=== PATIENT | female | born 1960 | race Caucasian/White ===

== ENCOUNTER 2021-02-28 23:39 | Inpatient (IN) | payer OTHER, SELFPAY ==
--- NOTE | ~2021-02-28 | XR_ITS ---
XR chest 1V portable DATE: 03/08/2021 05:51 INDICATION: Respiratory failure TECHNIQUE: Portable AP chest on 03/08/2021 at 0530 hours COMPARISON: 03/07/2021 portable AP chest FINDINGS: Tip of ET tube is approximately 5.6 cm above samantha. Right upper extremity PIC catheter tip overlies superior vena cava. NG tube in stomach. Bilateral hyperinflation. No pulmonary consolidation, pleural effusion, pulmonary congestion or pneum othorax is evident. Heart size is normal. Diffuse osteopenia. IMPRESSION: Bilateral hyperinflation; no active cardiopulmonary disease Reviewed, dictated and finalized at location A.
--- NOTE | ~2021-02-28 | XR_ITS ---
XR chest PICC line 03/01/2021 10:41 Indication: PICC line placement Procedure: AP portable chest Comparison: 02/28/2021 Findings: NG tube passes into the stomach, tip not visualized. Endotracheal tube approximately 6 cm a michelle the samantha. Right subclavian PICC line tip in the SVC. Right perihilar and basilar infiltrates m ay represent atelectasis and/or pneumonia. Impression: 1: Right perihilar and basilar infiltrates which may represent atelectasis and/or pneumonia. Reviewed, dictated and finalized at location A. Impression: 1: Right perihilar and basilar infiltrates which may represent atelectasis and/ or pneumonia.
--- NOTE | ~2021-02-28 | XR_ITS ---
EXAMINATION: XR chest 1V portable EXAM DATE: 03/10/2021 05:41 INDICATION: Respiratory failure. TECHNIQUE: Portable AP frontal chest x-ray was obtained. Comparison is made to prior examination from 03/09/2021, 03/08/2021, 03/07/2021. FINDINGS: Endotracheal tube tip is 4-5 centimeters above the samantha. There is a nasogastric tube se en with tip collimated off the study, but below the left hemidiaphragm. There is a right-sided PICC l ine with tip projecting over the cavoatrial junction. There is of bibasilar medial subsegmental opacities, atelectasis an/or pneumonia. There are no pleura l effusions. Cardiac silhouette is prominent but magnified on this AP technique. There is no pneum othorax suspected. The bones and soft tissues are unremarkable. There is no significant interval change. IMPRESSION: 1. Tubes, line in position. 2. Bibasilar medial atelectasis an/or pneumonia unchanged. Reviewed, dictated and finalized at location A.
--- NOTE | ~2021-02-28 | CT_ITS ---
EXAMINATION: CTA chest DATE: 03/01/2021 08:35 CDT INDICATION: Cardiac arrest TECHNIQUE: Computed tomographic angiography (CTA) of the chest was performed with 100 mL Omnipaque-35 0 intravenous contrast. The dose-length product was 745.76 mGy-cm. Maximum intensity projection 3D-re constructions of the aorta and other arteries were constructed by the technologist on a separate work station. Automated exposure control and iterative reconstruction technique were employed. COMPARISON: No prior studies for comparison. . FINDINGS: Endotracheal tube is present. NG tube in the stomach which is moderately distended. Borderl ine heart size. No significant pleural or pericardial effusion. No evidence for pulmonary embolism. N o evidence for aortic aneurysm or dissection. There is bibasilar dependent atelectasis. No focal pneu monia. No endobronchial lesion. Calcified granuloma right midlung zone. There is reflux of contrast i nto the intrahepatic IVC and hepatic veins which can be associated with right heart dysfunction. No a cute osseous abnormality. No pneumothorax. IMPRESSION: 1. Bibasilar atelectasis. 2: No evidence for pulmonary embolism, aortic aneurysm or dissection. Reviewed, dictated and finalized at location A.
--- NOTE | ~2021-02-28 | XR_ITS ---
XR abdomen NG/feed tube insert INDICATION: Evaluate NG tube position. TECHNIQUE: Limited KUB perform for evaluating NG tube . COMPARISON: No prior studies for comparison. FINDINGS: NG tube tip in the stomach, side port above the GE junction. There is gastric distention. D ilated bowel noted in the upper abdomen, nonspecific.. IMPRESSION: 1: NG tube tip in the stomach with side port above the GE junction. 2: Moderate gastric distention with nonspecific bowel gas pattern. Reviewed, dictated and finalized at location A.
--- NOTE | ~2021-02-28 | XR_ITS ---
XR chest 1V portable DATE: 03/06/2021 05:43 INDICATION: Acute respiratory failure TECHNIQUE: Portable AP chest on 03/06/2021 at 0524 hours COMPARISON: 03/05/2021 portable AP chest at 0508 hours FINDINGS: ET tube in satisfactory position 4.6 cm above samantha. NG tube in stomach. Right upper cavity PICC catheter tip overlies the superior vena cava. There is patchy infiltrate or atelectasis in the left lower lobe, which appears mildly improved since 03/05/2021. The lungs otherwise appear essentially clear. IMPRESSION: Left lower lobe patchy infiltrate or atelectasis, mildly improved Reviewed, dictated and finalized at location A.
--- NOTE | ~2021-02-28 | XR_ITS ---
EXAMINATION: XR chest 1V portable EXAM DATE: 03/11/2021 06:04 INDICATION: Respiratory failure. TECHNIQUE: Portable AP frontal chest x-ray was obtained. Comparison is made to prior examination from 03/10, 03/09. FINDINGS: Endotracheal tube tip difficult to visualize but is probably 5-6 centimeters above the car scottie. There is a nasogastric tube seen with tip collimated off the study, but below the left hemidiap hragm. There is a right-sided PICC line with tip projecting over the cavoatrial junction. There is of bibasilar medial subsegmental opacities, atelectasis an/or pneumonia. Some hyperinflation . There are no pleural effusions. Cardiac silhouette is prominent but magnified on this AP technique . There is no pneumothorax suspected. The bones and soft tissues are unremarkable. There is no significant interval change. IMPRESSION: 1. Tubes, line in position. 2. Bibasilar medial atelectasis an/or pneumonia unchanged. Reviewed, dictated and finalized at location A.
--- NOTE | ~2021-02-28 | XR_ITS ---
EXAMINATION: XR abdomen NG/feed tube insert DATE: 03/13/2021 10:10 INDICATION: Orogastric tube placement check TECHNIQUE: A supine view of the abdomen and lower chest was obtained for evaluation of feeding tube placement. COMPARISON: 03/07/2021 FINDINGS: Orogastric tube tip in proximal side port in the body of the stomach. Right upper extremity periphera lly inserted central venous catheter (PICC) tip at the mid superior vena cava. Cholecystectomy clip s in right upper quadrant. Additional surgical clips project over the lower lumbar spine. Calcified n odules in the right lung, spleen and calcified right hilar and mediastinal lymph nodes, all consisten t with old granulomatous disease. Additional cluster small calcifications to the right of the L2 vert ebral body which could represent renal stones or dystrophic calcific lesions in the pancreas related to chronic pancreatitis. Heart size is normal. IMPRESSION: 1. Orogastric tube in the stomach. Reviewed, dictated and finalized at location A.
--- NOTE | ~2021-02-28 | XR_ITS ---
EXAMINATION: XR chest 1V portable EXAM DATE: 03/09/2021 05:40 INDICATION: Resp Failure. TECHNIQUE: Portable AP frontal chest x-ray was obtained. Comparison is made to prior examination from 03/08/2021. FINDINGS: Endotracheal tube tip is 4.5 centimeters above the samantha. There is a nasogastric tube see n with tip collimated off the study, but below the left hemidiaphragm. There is a right-sided PICC li ne with tip projecting over the cavoatrial junction. There is interval development of bibasilar subsegmental opacities, atelectasis an/or pneumonia. There are no pleural effusions. Cardiac silhouette is prominent but magnified on this AP technique. The re is no pneumothorax suspected. The bones and soft tissues are unremarkable. IMPRESSION: Developing bibasilar atelectasis an/or pneumonia. Reviewed, dictated and finalized at location A.
--- NOTE | ~2021-02-28 | XR_ITS ---
EXAMINATION: XR chest ET placement, XR abdomen NG/feed tube rechec DATE: 03/07/2021 20:22 INDICATION: Repositioning of endotracheal tube and orogastric tube advancement. TECHNIQUE: 1. frontal view of the chest was obtained. 2. AP view of the abdomen was obtained. COMPARISON: Chest radiograph dated 03/07/2021 at 7:55 PM FINDINGS: Chest: Endotracheal tube tip 4.1 cm above the samantha. Right upper extremity peripherally inserted central ve nous catheter (PICC) tip at the mid superior vena cava. Calcified nodules in the right lung and calcified right hilar lymph nodes consistent with old granulo matous disease. Remainder of the lungs are clear with no pulmonary edema, pleural effusion or pneumot horax. The cardiomediastinal silhouette is normal. Abdomen: Is a gastric tube tip in proximal side port in the body of the stomach. Cholecystectomy clips in righ t upper quadrant. Additional surgical clips in the central abdomen. No dilated loops of bowel to sugg est obstruction. IMPRESSION: 1. Endotracheal tube and nasogastric tubes in expected positions. 2. No acute cardiopulmonary disease. Reviewed, dictated and finalized at location A. IMPRESSION: 1. Endotracheal tube and nasogastric tubes in expected positions. 2. No acute cardiopulmonary disease.
--- NOTE | ~2021-02-28 | XR_ITS ---
EXAMINATION: XR chest ET placement DATE: 03/07/2021 20:08 INDICATION: Endotracheal tube placement TECHNIQUE: frontal view of the chest was obtained. COMPARISON: Chest radiograph dated 03/07/2021 FINDINGS: Endotracheal tube tip 7.3 cm above the samantha. Nasogastric tube extends below the left hemidiaphragm with distal tip collimated off the study. Right upper extremity peripherally inserted central venous catheter (PICC) tip at the mid superior vena cava. Calcified nodule in the right midlung and calcified right hilar lymph nodes consistent with old granu lomatous disease. Linear discoid atelectasis at the left lung base. No other airspace opacities, pulm onary edema, pleural effusion or pneumothorax. The cardiomediastinal silhouette is normal. Visualized bones and soft tissues are unremarkable. IMPRESSION: 1. Endotracheal tube tip 7.3 cm above the samantha. Recommend advancement by 4-5 cm. 2. No acute cardiopulmonary disease. Reviewed, dictated and finalized at location A.
--- NOTE | ~2021-02-28 | XR_ITS ---
XR chest ET placement 03/01/2021 00:12 Indication: Cardiac arrest Procedure: AP portable chest Comparison: 02/14/2011 Findings: Endotracheal tube tip 4.7 cm above the samantha. Mild interstitial edema. Heart size within n ormal limits for technique. No significant effusion or pneumothorax. Impression: 1: Mild interstitial edema. Reviewed, dictated and finalized at location A. Impression: 1: Mild interstitial edema.
--- NOTE | ~2021-02-28 | XR_ITS ---
XR chest 1V portable DATE: 03/07/2021 05:45 INDICATION: Respiratory failure TECHNIQUE: Portable upright AP chest on 03/07/2021 at 0532 hours COMPARISON: 03/06/2021 portable AP chest at 0524 hours FINDINGS: Right upper extremity PIC catheter tip overlies the superior vena cava. ET tube tip is approximately 0.9 cm above samantha; ideal range is #2 out of 5 cm. An NG tube noted passing into the stomach. Normal heart size. Mild infiltrate or atelectasis in the lower lung zones IMPRESSION: Little interval change since 03/06/2021 Reviewed, dictated and finalized at location A.
--- NOTE | ~2021-02-28 | XR_ITS ---
XR chest 1V portable DATE: 03/05/2021 05:27 INDICATION: Acute respiratory failure TECHNIQUE: Portable AP chest on 03/05/2021 at 0508 hours COMPARISON: 03/04/2021 portable AP chest at 0522 hours FINDINGS: ET tube tip 5.5 cm above samantha. NG tube in stomach, proximal port approximately 4 cm dista l to the diaphragmatic hiatus. Right upper stomach the catheter tip overlies the superior vena cava. Normal heart size. There is persistent left lower lobe retrocardiac infiltrate and/atelectasis. Mild discoid atelectasis or scarring at the right lung base. Old pulmonary granulomatous disease. No pleural effusion or pneumothorax. IMPRESSION: No significant change since 03/04/2021 Reviewed, dictated and finalized at location A.
--- NOTE | ~2021-02-28 | XR_ITS ---
XR chest 1V portable DATE: 03/04/2021 05:31 INDICATION: Acute respiratory failure TECHNIQUE: Portable AP chest on 03/04/2021 at 0522 hours COMPARISON: Portable AP chest on 03/03/2021 at 0513 hours FINDINGS: ET tube tip is approximately 5.5 cm above samantha; ideal range is -2005 cm. NG tube in stomach. Right upper extremity PIC catheter tip overlies superior vena cava. Normal heart size. There is pulmonary vascular redistribution which may indicate mild pulmonary venou s hypertension. There is mildly increased patchy left lower lobe infiltrate and/or atelectasis since 03/03/2021; persi stent right basilar discoid atelectasis. No pneumothorax or pleural effusion. IMPRESSION: Mild increased left lower lobe infiltrate and/atelectasis and persistent discoid atelecta sis at right lung base Reviewed, dictated and finalized at location A. IMPRESSION: Mild increased left lower lobe infiltrate and/atelectasis and persi stent discoid atelectasis at right lung base
--- NOTE | ~2021-02-28 | XR_ITS ---
XR chest 1V portable 03/14/2021 05:44 Indication: Respiratory failure Procedure: AP portable chest Comparison: Comparison to multiple prior studies sequentially, with oldest reviewed study dated 02/27. Findings: Endotracheal tube tip 7.1 cm above the samantha. PICC line tip mass cc. NG tube in the stomac h. Heart size normal. No focal air space disease, pulmonary edema, pleural effusion or suspected pneu mothorax. No acute osseous abnormality. Impression: 1: No acute cardiopulmonary disease. Reviewed, dictated and finalized at location A. Impression: 1: No acute cardiopulmonary disease.
--- NOTE | ~2021-02-28 | XR_ITS ---
XR chest 1V portable DATE: 03/02/2021 05:45 INDICATION: Acute respiratory failure TECHNIQUE: Portable AP chest on 02/2021 0455 hours COMPARISON: 03/01/2021 portable AP chest at 1038 hours FINDINGS: ET tube in satisfactory position 4.5 cm above samantha. NG tube in stomach, proximal port steven roximately 1 cm distal to the diaphragmatic hiatus. Right upper extremity PIC catheter tip overlies the lower superior vena cava. Calcified pulmonary granuloma, right mid lung. No pulmonary infiltrate or consolidation, pleural effu alexis or pulmonary vascular congestion or pneumothorax is detected. Heart size appears normal. IMPRESSION: No active cardiopulmonary disease Reviewed, dictated and finalized at location A.
--- NOTE | ~2021-02-28 | CT_ITS ---
EXAMINATION: CT brain wo con DATE: 03/05/2021 08:45 INDICATION: Altered state, unresponsive. Mild colonic injury. Seizure activity. Postcardiac arrest. TECHNIQUE: Computed tomography (CT) of the head was performed without intravenous contrast. The mA wa s adjusted according to patient size. Iterative reconstruction technique was employed. Exam dose: 60 5.33 mGy-cm total exam DLP. COMPARISON: 03/18/2021 CT brain FINDINGS: No intracranial mass lesion or hemorrhage, midline shift or mass effect. There is nonspecific diminished attenuation cerebral white matter, most prominent in the right fronta l area, stable since 03/01/2021. Small focal infarct is suggested in the high posterior left parietal area, also stable since 03/01/2021. No intracranial mass lesion or hemorrhage, midline shift or mass effect effect. No subdural or epidural hematoma. No fracture or bone destruction of the cranial vault. There is complete opacification of the frontal sinuses, extensive opacification of the ethmoid air ce lls and severe mucoperiosteal thickening of both maxillary sinuses. The mastoid air cells are normally developed and aerated IMPRESSION: No acute intracranial finding or significant change since 03/01/2021 Prominent sinusitis Reviewed, dictated and finalized at Location A. Reviewed, dictated and finalized at location A. IMPRESSION: No acute intracranial finding or significant change since Prominent sinusitis
--- NOTE | ~2021-02-28 | CT_ITS ---
EXAMINATION: CT brain wo con DATE: 03/01/2021 00:34 INDICATION: Altered mental status TECHNIQUE: Computed tomography (CT) of the head was performed without intravenous contrast. The dose- length product was 605.33 mGy-cm. Automated exposure control and iterative reconstruction technique w ere employed. COMPARISON: None FINDINGS: There is left parietal encephalomalacia, consistent with chronic infarction. Mild generaliz ed atrophy. There are scattered mild periventricular and subcortical white matter changes, most likel y related to small vessel ischemic disease (microangiopathy). No ventriculomegaly or midline shift. B asilar cisterns are patent. IMPRESSION: 1. No acute intracranial abnormality. 2: Chronic left parietal lobe infarction. 3: Chronic age-related findings. Reviewed, dictated and finalized at location A.
--- NOTE | ~2021-02-28 | XR_ITS ---
XR chest 1V portable DATE: 03/03/2021 05:39 INDICATION: Acute respiratory failure TECHNIQUE: Portable upright AP chest on 03/03/2021 at 0513 hours COMPARISON: 03/02/2021 portable AP chest at 0455 hours FINDINGS: ET tube in satisfactory position 3.9 cm above samantha. NG tube in stomach. Right upper extremity PIC catheter tip overlies the lower aspect of the superior vena cava. There is patchy infiltrate and/atelectasis primarily involving the left lower lobe and right lung bas e. No pleural effusion or pneumothorax. Status post cholecystectomy IMPRESSION: Mild infiltrate or atelectasis primarily in the lower lung zones Reviewed, dictated and finalized at location A.
[2021-02-28 23:34] VITALS: PULSE 71; RESP 15; TEMP 36.2; O2SAT 100
--- NOTE | 2021-02-28 23:40 | ECG_ITS ---
Measurements Intervals [place] Rate: 58 P: ND: 0 QRS: 71 QRSD: 133 T: 34 QT: 420 QTc: 416 Interpretive Statements ECTOPIC ATRIAL BRADYCARDIA OR JUNCTIONAL RHYTHM INTRAVENTRICULAR CONDUCTION DELAY ST-T WAVE ABNORMALITY IN ANTEROLAT/INF LEADS- CONSIDER ISCHEMIA BASELINE ARTIFACT- I, II, III, AVR, AVL, AVF, V1-V6 ABNORMAL ECG Electronically Signed On 03-02-2021 16:39:43 CDT by Uzair Shook D.O.
[2021-02-28 23:42] VITALS: PULSE 62; RESP 18
[2021-02-28 23:45] VITALS: BP 134/101; PULSE 56; RESP 18
[2021-02-28 23:46] VITALS: BP 134/101; PULSE 59; RESP 24
[2021-02-28 23:47] VITALS: BP 131/101; PULSE 61; RESP 24; O2SAT 100
--- NOTE | 2021-02-28 23:47 | PC.NURSE ---
Patient arrives with colostomy in place.
--- NOTE | 2021-02-28 23:48 | PC.NURSE ---
VORB repeat EKG.
--- NOTE | 2021-02-28 23:49 | ECG_ITS ---
Measurements Intervals [place] Rate: 63 P: -68 MA: 122 QRS: 53 QRSD: 125 T: 29 QT: 392 QTc: 404 Interpretive Statements SINUS OR ECTOPIC ATRIAL RHYTHM INTRAVENTRICULAR CONDUCTION DELAY CANNOT RULE OUT SEPTAL INFARCT, AGE INDETERMINATE BORDERLINE ST ABNORMALITY- INFERIOR LEADS BASELINE ARTIFACT- I, II, III, AVR, AVL, AVF, V1-V6 ABNORMAL ECG Electronically Signed On 03-02-2021 16:41:11 CDT by Uzair Shook D.O.
--- NOTE | 2021-02-28 23:50 | PC.NURSE ---
RT in room placing patient on vent.
--- NOTE | 2021-02-28 23:52 | PC.NURSE ---
Xray in room obtaining ET placement and chest xray.
[2021-03-01] VITALS (75 sets, daily range): BP systolic 91–180; BP diastolic 50–109; PULSE 57–105; RESP 16–34; TEMP 34.9–36.6; O2SAT 94–100
[2021-03-01 00:03] LABS: Basophils Absolute Auto 0.1 K/mm3 (0.0-0.1); Basophils Percent Auto 0.7 % (0.2-1.2); Eosinophils Absolute Auto 0.1 K/mm3 (0-0.3); Eosinophils Percent Auto 0.6 % (0-4.4); Hematocrit 44.3 % (37.0-47.0); Hemoglobin 13.3 g/dL (12.0-15.0); Immature Granulocyte Absolute 1.33 K/mm3 (0.00-0.031); Immature Granulocyte Percent A 8.2 % (0-0.5); Lymphocytes Absolute Auto 6.82 K/mm3 (0.9-3.2); Lymphocytes Percent Auto 42.2 % (18.3-44.2); Mean Corpuscular Hemoglobin 28.5 pg (26-34); Mean Corpuscular Volume 94.9 fl (80-100); Mean Platelet Volume 10.6 fl (7.4-10.4); Neutrophils Absolute Auto 6.8 K/mm3 (1.3-6.7); Neutrophils Percent Auto 42.3 % (45.5-73.1); Nucleated Red Blood Cells Perc 0.1 % (0.0-0.2); Platelet Count Result 269 k/mm3 (150-375); Red Blood Count 4.67 M/mm3 (4.2-5.4); Red Cell Distribution Width 14.8 % (11.5-14.5); White Blood Count 16.2 K/mm3 (4.5-10.0)
[2021-03-01 00:17] LABS: INR 2.5; Prothrombin Time 26.5 Seconds (11.1-14.7)
[2021-03-01 00:18] LABS: Partial Thromboplastin Time 34.9 SECONDS (22.3-36.8)
--- NOTE | 2021-03-01 00:26 | ED.GENADULT ---
HPI - General Adult General Chief complaint: Cardiac Arrest/CPR Stated complaint: cardiac arrest History of Present Illness HPI narrative: Patient is a 60-year-old female who presents ER in cardiac arrest. Patient was at a wedding this evening and had walked to her son's car when she told him she was short of breath. She then collapsed. Bystanders initiated CPR because she did not have a pulse. A bystander nurse told the son that patient had agonal respirations. EMS arrived and patient was in asystole. They performed ACLS protocol and patient was given 3 rounds of epinephrine. Patient improved to PEA, and then to having return of spontaneous circulation. According to the son 08/2020 patient had a cardiac ablation for atrial fibrillation. Then in September 2020 patient has similar episode where she cannot breathe and collapse. At that time she had a humeral intraosseous line and was intubated. 24 hours later she snapped out of it. Patient then underwent cardiac catheterization which showed no blockages. According to patient has no cardiac stents. Patient is currently anticoagulated on Coumadin. Patient resides in [place] and flew up here 4 days ago. Related Data Home Medications Medication Instructions Recorded Confirmed furosemide 20 mg PO DAILY 03/01/21 03/01/21 sotalol 120 mg PO BID 03/01/21 03/01/21 umeclidinium-vilanterol [Anoro 1 inh INHALATION DAILY 03/01/21 03/01/21 Ellipta] venlafaxine 75 mg PO DAILY 03/01/21 03/01/21 Allergies Allergy/AdvReac Type Severity Reaction Status Date / Time tetracycline Allergy Intermediate HIVES Verified 07/02/11 15:59 ADHESIVES Allergy Unknown SKIN Uncoded 07/12/11 07:34 IRRITATION Review of Systems Review of Systems: ROS unobtainable: Yes unobtainable due to endotracheal tube PMFSH Past Medical History Medical History (Updated 03/01/21 @ 03:39 by Elias Steven MD) Atrial fibrillation Bladder cancer Surgical History Surgical History (Updated 03/01/21 @ 03:30 by Elias Steven MD) H/O cardiac radiofrequency ablation H/O total cystectomy History of ileal conduit Social History Social History (Updated 03/01/21 @ 03:30 by Elias Steven MD) Social History: History of tobacco abuse Exam Narrative: GENERAL: Ill-appearing, well-nourished, unresponsive. HEAD: Normocephalic, atraumatic. EYES: PERRL. ENT: Mucous membranes moist. CHEST: Clear to auscultation. No respiratory distress. HEART: Regular rate and rhythm. Normal peripheral pulses. ABDOMEN: Soft, nontender, nondistended. EXTREMITIES: Normal range of motion. No edema. Left tibial IO. SKIN: Warm, dry, no rash. NEURO: GCS 3. Is not localizing or withdrawing to pain. Gag reflex intact. Course Course Emergency Course: Upon arrival patient with history elevation in aVR and ST depressions in the precordial leads. Discussed case with Dr. Carrillo. Repeat EKG shows marked improvement in the ST depression and ST elevation. After talking with family more was learned that patient had recent cardiac catheterization without intervene will disease after similar episode and that patient has never had a cardiac stent. Decision made that patient does not need to go to the Communications Attendant but should troponins be elevated patient should be started on heparin despite being on Coumadin. Discussed case with the bobbin washer who would like patient to have cooling blanket with goal temperature of 36?C. Patient has been accepted to hospitalist service. Patient is currently being sedated with fentanyl and Versed. Patient has no purposeful movement at this time and has occasional full body jerking type movements that are nonsustained and not rhythmic in nature. Son is at bedside is aware of treatment plan and seriousness of the condition. Patient remains a full code at this time. Vital Signs Vital signs: Vital Signs Temperature 97.2 F L 02/28/21 23:34 Pulse Rate 71 02/28/21 23:34 Respiratory Rate 15
--- NOTE | 2021-03-01 00:31 | PC.NURSE ---
Patient back from CT. VSS. Patient on vent.
[2021-03-01] MEDS: fentaNYL CITRATE INJ (*CRX) 100 MCG/2 ML VIAL (00:53)
[2021-03-01] MEDS: MIDAZOLAM HCL (*CRX) 2 MG/2 ML VIAL (00:54)
[2021-03-01] MEDS: FENTANYL 2,500MCG/NS250ML(*CRX 2,500 MCG/250 ML BAG IV CONT (00:57)
[2021-03-01] MEDS: MIDAZOLAM 100MG/NS 100ML(*CRX) 100 MG/100 ML BAG IV CONT (00:59)
--- NOTE | 2021-03-01 01:07 | PC.NURSE ---
Patient's son brought back to room.
--- NOTE | 2021-03-01 01:57 | PC.NURSE ---
VORB titrate patient's sedation to 50mcg/hr for fentanyl drip and 2mg/hr for versed drip.
[2021-03-01 02:10] LABS: Alanine Aminotransferase 220 U/L (4-35); Albumin Level 4.6 g/dL (3.5-5.1); Alkaline Phosphatase 93 U/L (38-126); Anion Gap 17 mmol/L (8-16); Aspartate Amino Transferase 342 U/L (14-36); Bilirubin,Total 0.4 mg/dL (0.2-1.3); Blood Urea Nitrogen 24 mg/dL (7-17); Carbon Dioxide 22 mmol/L (22-30); Chloride 102 mmol/L (98-107); Cholesterol 197 mg/dL (0-200); Estimated Glomerular Filt Rate 35; Glucose 217 mg/dL (65-110); HDL Direct 65 mg/dL; Potassium 4.3 mmol/L (3.4-5.0); Sodium 141 mmol/L (137-145); Triglycerides 188 mg/dL (<150)
[2021-03-01 02:21] LABS: LDL Cholesterol Direct 84 mg/dL
[2021-03-01 02:22] LABS: Troponin I 0.079 ng/mL (0.000-0.034)
[2021-03-01] MEDS: HEPARIN SODIUM 5,000 UNITS/ML VIAL 4000 UNITS IV PUSH (02:40)
[2021-03-01] MEDS: HEPARIN SOD/D5W 100 UNITS/ML 25,000 UNITS/250 ML BAG 9 UNITS IV CONT (02:55)
--- NOTE | 2021-03-01 03:58 | PM.IMHP ---
H&P: HPI History of Present Illness Date/Time: 03/01/21 03:58 Chief Complaint: Cardiac arrest Narrative: This is a 60-year-old female with past medical history significant for bladder cancer status post ileal conduit placement, atrial fibrillation, sinus node ablation, cardiac arrest. Patient currently resides in [place] she has a visiting and tonight was at wedding her son came for her when she got in the back seat in the car she complained that she was not able to breathe as the son is trying to pull up hand and called 911 he noticed that she was unresponsive and slumped back immediately got her out of the car and bystanders initiated CPR. EMS arrived and proceeded to continue CPR patient received 3 rounds of epinephrine and had return of spontaneous circulation and route to the hospital. In emergency room patient was placed on ventilator support and preliminary workup was pretty much unrevealing a CTA did not show any acute pulmonary embolism EKG showed sinus rhythm a chest x-ray did not show any abnormalities and CBC with white count of 16,000 chemistry panel and troponin were significant for elevation of AST and ALT, elevated troponin and a creatinine of 1.5. Patient is now on ventilator support. Review of Systems Review of Systems: ROS unobtainable: Yes unobtainable due to medical condition (On ventilator support) PMFSH Past Medical History Medical History (Updated 03/01/21 @ 04:23 by Charla Burden MD) Atrial fibrillation Bladder cancer Surgical History Surgical History (Updated 03/01/21 @ 03:30 by Elias Steven MD) H/O cardiac radiofrequency ablation H/O total cystectomy History of ileal conduit Social History Social History (Updated 03/01/21 @ 03:30 by Elias Steven MD) Social History: History of tobacco abuse Meds Home Medications and Allergies Home Medications Medication Instructions Recorded Confirmed Type furosemide 20 mg PO DAILY 03/01/21 03/01/21 History sotalol 120 mg PO BID 03/01/21 03/01/21 History umeclidinium-vilanterol [Anoro 1 inh INHALATION DAILY 03/01/21 03/01/21 History Ellipta] venlafaxine 75 mg PO DAILY 03/01/21 03/01/21 History Allergies Allergy/AdvReac Type Severity Reaction Status Date / Time tetracycline Allergy Intermediate HIVES Verified 07/02/11 15:59 ADHESIVES Allergy Unknown SKIN Uncoded 07/12/11 07:34 IRRITATION Vital Signs Vital Signs - 24 hr 02/28/21 23:34 02/28/21 23:42 02/28/21 23:45 Temperature 97.2 F L Pulse Rate 71 62 56 L Respiratory Rate 15 18 18 Blood Pressure 134/101 H Pulse Oximetry 100 02/28/21 23:46 02/28/21 23:47 03/01/21 00:00 Temperature Pulse Rate 59 L 61 58 L Respiratory Rate 24 H 24 H 29 H Blood Pressure 134/101 H 131/101 H Pulse Oximetry 100 03/01/21 00:01 03/01/21 00:06 03/01/21 00:09 Temperature Pulse Rate 77 71 Respiratory Rate 27 H Blood Pressure 153/78 H Pulse Oximetry 100 03/01/21 00:30 03/01/21 00:31 03/01/21 00:36 Temperature Pulse Rate 82 81 80 Respiratory Rate 20 Blood Pressure 178/103 H 174/96 H Pulse Oximetry 03/01/21 00:42 03/01/21 00:45 03/01/21 00:47 Temperature Pulse Rate 78 79 79 Respiratory Rate Blood Pressure 176/99 H 176/104 H Pulse Oximetry 03/01/21 00:53 03/01/21 00:56 03/01/21 00:57 Temperature Pulse Rate 79 73 71 Respiratory Rate 18 18 Blood Pressure 180/109 H 144/81 H Pulse Oximetry 03/01/21 00:59 03/01/21 01:00 03/01/21 01:01 Temperature Pulse Rate 70 70 70 Respiratory Rate 18 18 18 Blood Pressure 119/80 Pulse Oximetry 03/01/21 01:06 03/01/21 01:11 03/01/21 01:15 Temperature Pulse Rate 70 70 71 Respiratory Rate 16 18 18 Blood Pressure 117/82 119/84 Pulse Oximetry 03/01/21 01:16 03/01/21 01:21 03/01/21 01:26 Temperature Pulse Rate 71 70 71 Respiratory Rate 18 18 18 Blood Pressure 129/82 126/88 134/85 Pulse Oximetry 03/01/21 01:30 03/01/21 01:31 10
--- NOTE | 2021-03-01 04:28 | ADMGEN ---
This patient, Mariam Lombardo, was admitted to Intensive Care Unit-7. Patient/family oriented to hospital policies and general routines including ID bracelet, bed and alarms, visiting hours, pain management, procedures, bathroom and other care routines, personal items, smoking policy, room service/diet, and visiting hours. Information on how to activate the Rapid Response Team has been discussed. Patient/Family are encouraged to report perceived risks to care and to ask questions if they do not understand what they are told or what they should do.
[2021-03-01] MEDS: PROPOFOL IV EMULSION 100 ML 2.84 MG IV CONT (05:04)
[2021-03-01] MEDS: SODIUM CHLORIDE 0.9% IV 1,000 ML 125 ML IV CONT ×3 (05:08→22:31)
[2021-03-01] MEDS: levETIRAcetam 1000MG/NACL100ML 1,000 MG/100 ML BAG 400 MG IVPB (05:12)
[2021-03-01 05:14] LABS: Alveolar/Arterial O2 Gradient 207.3 mmHg; Base Excess ABG -3.1 mEq/l (+/-2.0); Carboxyhemoglobin 0.3 % THb (0-2.0); Fractional Inspired Oxygen 80 %; HCO3 ABG 21.3 mEq/l (22.0-26.0); Methemoglobin ABG 0.4 %THb (0-1.5); Oxygen Content ABG 19.9 %vol (16.0-22.0); Oxygen Saturation ABG 99.7 % (95.0-100.0); Oxyhemoglobin 98.2 % THb (90.0-100.0); PCO2 ABG 36.3 mmHg (35.0-45.0); PO2 FiO2 Ratio Arterial Blood 4.06 %; Reduced Hemoglobin 1.1 %THb (0-5.0); Total Hemoglobin 13.8 g/dL (12.0-18.0); pH ABG 7.386 (7.350-7.450)
[2021-03-01 05:15] LABS: Device VENTILATOR; Modified Allen's Test Pass; Site Drawn LEFT RADIAL
[2021-03-01 05:16] LABS: Arterial Blood Gas PEEP 5 cmH2O; Arterial Blood Gas Tidal Volume 450 ml; Arterial Blood Gas Vent Mode CMV; Arterial Blood Gas Ventilator rate 18 /MIN
[2021-03-01 06:16] LABS: Troponin I 0.178 ng/mL (0.000-0.034)
[2021-03-01] MEDS: hetaSTARCH 6%/NACL 500 ML 250 ML IV CONT (06:57)
--- NOTE | 2021-03-01 09:12 | PM.CNCAR ---
Assessment and Plan Assessment and plan (1) Cardiac arrest: Code(s): I46.9 - Cardiac arrest, cause unspecified Status: Acute Assessment and Plan: Patient had an asystolic and PDA arrest, no evidence of any torsade or ventricular arrhythmias at the time of the arrest or since then. No evidence of acute SC Takes sotalol, but No evidence of ventricular arrhythmias Has COPD but does not appear to have significant CO2 retention No evidence of PE Hemodynamically stable since admission. Continue supportive care. Echo. EKG (2) Elevated troponin I level: Code(s): R77.8 - Other specified abnormalities of plasma proteins Status: Acute Assessment and Plan: Type 2 SC secondary to cardiac arrest. She did have some lateral ST depression on admission but apparently cardiac catheterization in September did not show any CAD. (3) Paroxysmal atrial fibrillation: Code(s): I48.0 - Paroxysmal atrial fibrillation Status: Acute Assessment and Plan: History of paroxysmal AFib and atrial flutter, taking sotalol, with a AFib ablation in August 2020 in [place]. Will request records (4) Chronic anticoagulation: Code(s): Z79.01 - remote computer terminal operator (current) use of anticoagulants Status: Acute Assessment and Plan: Therapeutically anticoagulated with warfarin. Changed to heparin drip now. (5) Chronic kidney disease: Code(s): N18.9 - Chronic kidney disease, unspecified Status: Acute Assessment and Plan: Has stage IIIB kidney disease, presumably chronic. (6) COPD (chronic obstructive pulmonary disease): Code(s): J44.9 - Chronic obstructive pulmonary disease, unspecified Status: Acute Assessment and Plan: Apparently takes prednisone chronically at home. May need ongoing steroids. (7) Elevated LFTs: Code(s): R79.89 - Other specified abnormal findings of blood chemistry Status: Acute Assessment and Plan: Likely secondary to the cardiac arrest (8) Acute respiratory failure with hypoxia: Code(s): J96.01 - Acute respiratory failure with hypoxia Status: Acute Assessment and Plan: On ventilator, FiO2 60% (9) Myoclonic jerking: Code(s): G25.3 - Myoclonus Status: Acute Assessment and Plan: On Keppra. 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 History of Present Illness History of Present Illness Consult date/time: 03/01/21 09:12 Requesting physician: Elias Steevn MD Consult reason: Other (Status post cardiac arrest) Reason For Visit: Cardiac Arrest Narrative: Mariam Lombardo is a 60-year-old female whom I was asked to see at the request of Dr. Steven and hospitalists for my advice and opinion regarding her cardiac arrest in consultation. Patient was apparently at a wedding blue split trimmer when she told her son that she was short of breath and collapsed. EMS was told that she was unresponsive but breathing for several minutes but an off duty nurse bystander noted the patient was having agonal respirations and was pulseless and began CPR. She was in asystole on EMS arrival. She was intubated. She then had pulseless electrical activity with a heart rate in the 20s and underwent several rounds of epinephrine etc. per CPR protocol. She regained her pulse and blood pressure. Dr. Carrillo was consulted and she did not appear to have a STEMI, or need emergent cardiac catheterization. CT showed no evidence of PE or aortic dissection. She was admitted to the ICU and placed on a hypothermia protocol. She has not required any pressors but is having some myoclonic jerks and is sedated. She has not had any arrhythmias. History obtained by Dr. Steven from the family was that she had a similar event in September 2020 which she could not breathe and collapsed, was intubated, but recovered and cardiac catheterization showed no blockages. The patient is visiting from [place] and flew up to this area
--- NOTE | 2021-03-01 09:17 | PM.IMPN ---
Progress Note: A&P Additional Plan START OF DOCTOR BEBA?S PROGRESS NOTE Subjective: The patient is sedated and intubated Objective: General: -sedated and intubated -No acute distress -No dyspnea -No tachypnea Heart: -Regular rate -iRegular rhythm -No murmurs -No gallops -No rubs Lungs: -No wheeze -No rhonchi -No rales Abdomen: -Normal bowel sounds in all four quadrants -No rebound -No guarding -No tenderness Extremities: -1/4 pulse in all four extremities -No clubbing -No cyanosis -No edema Additional Details / Additional Findings / Exceptions / Miscellaneous: Patient hypothermic Pertinent Laboratory Results / Pertinent Radiology Results / Pertinent Diagnostic Results / Pertinent Vital Signs: Heart rate 57, blood pressure 96 to Assessment / Plan: Cardiopulmonary arrest. Concern etiology at this time. Monitor patient telemetry and check serial cardiac enzymes. Echocardiogram pending. Magnesium level pending. Cardiology consult pending. Chemical Dependency Attendant/pulmonology consult pending. Sedation IV propofol per protocol. Turn q.2 hours. Daily ABG. Daily chest x-ray-22. Ventilator settings as of 9:15 a.m. on March 01, 2021: CMV: Rate 18, tidal volume 450, peep 5, FiO2 80% Hypotension. Monitor blood pressure closely. IV normal saline 125 mL/hour Bladder cancer, status post ileal conduit placement. Outpatient follow-up with Urology and/or Hematology/Oncology upon discharge Atrial fibrillation, status post cardiac ablation. IV heparin drip per protocol COPD Impression Acute renal insufficiency. Monitor creatinine intermittently. INR sodium 105 mL/hour Hyperglycemia, prediabetes versus acute stress reaction. Monitor serum glucose intermittently. Check hemoglobin A1c Transaminitis. This may be shock liver from cardiopulmonary arrest. Monitor LFTs periodically with CMP. If we see no improvement/resolution, we will check right upper quadrant ultrasound, hepatitis panel, and explore other options as well Elevated troponin. Likely a sequelae of cardiopulmonary arrest rather than representing NSTEMI. Per medical records, patient had cardiac catheterization which was unremarkable. Monitor patient on telemetry and check serial cardiac enzymes and monitor EKG intermittently. IV heparin drip per protocol plus aspirin 81 mg p.o. daily. Due to elevated liver function tests, no statin. Hypertriglyceridemia. Query history of seizure. Keppra 500 mg IV q.12 hours DVT prophylaxis. IV heparin drip per protocol Disposition: END OF DOCTOR BEBA?S PROGRESS NOTE Subjective Date/time seen: 03/01/21 09:17 Objective Data Vital Signs Vital Signs: Vital Signs - 24 hr 02/28/21 23:34 02/28/21 23:42 02/28/21 23:45 Temperature 97.2 F L Pulse Rate 71 62 56 L Respiratory Rate 15 18 18 Blood Pressure 134/101 H Pulse Oximetry 100 02/28/21 23:46 02/28/21 23:47 03/01/21 00:00 Temperature Pulse Rate 59 L 61 58 L Respiratory Rate 24 H 24 H 29 H Blood Pressure 134/101 H 131/101 H Pulse Oximetry 100 03/01/21 00:01 03/01/21 00:06 03/01/21 00:09 Temperature Pulse Rate 77 71 Respiratory Rate 27 H Blood Pressure 153/78 H Pulse Oximetry 100 03/01/21 00:30 03/01/21 00:31 03/01/21 00:36 Temperature Pulse Rate 82 81 80 Respiratory Rate 20 Blood Pressure 178/103 H 174/96 H Pulse Oximetry 03/01/21 00:42 03/01/21 00:45 03/01/21 00:47 Temperature Pulse Rate 78 79 79 Respiratory Rate Blood Pressure 176/99 H 176/104 H Pulse Oximetry 03/01/21 00:53 03/01/21 00:56 03/01/21 00:57 Temperature Pulse Rate 79 73 71 Respiratory Rate 18 18 Blood Pressure 180/109 H 144/81 H Pulse Oximetry 03/01/21 00:59 03/01/21 01:00 03/01/21 01:01 Temperature Pulse Rate 70 70 70 Respiratory Rate 18 18 18 Blood Pressure 119/80 Pulse Oximetry 03/01/21 01:06 03/01/21 01:11 03/01/21 01:15 Te
--- NOTE | 2021-03-01 09:45 | WPDCNINT ---
Assessment and Plan Assessment and plan (1) Cardiac arrest: Code(s): I46.9 - Cardiac arrest, cause unspecified Status: Acute Assessment and Plan: Patient was asystole and PEA arrest of unknown etiology, patient is on sotalol but there is no evidence of prolonged QT intervals, EKGs did not show any torsades of ventricular arrhythmias. -no evidence of acute AR, -patient has a history of COPD but her ABGs did not show hypercapnia -CTA chest with no evidence of PE or dissection -hemodynamically stable -continue target temperature management -patient has had some myoclonic jerks/seizure activity, started on Keppra -echocardiogram has been ordered (2) Acute respiratory failure with hypoxia: Code(s): J96.01 - Acute respiratory failure with hypoxia Status: Acute Assessment and Plan: Acute respiratory failure due to cardiac arrest, -intubated in the field on 03/01/2021 -on CMV mode of ventilation, peep of 5, -chest x-ray and ABGs reviewed, FiO2 dropped to 50% -will add bronchodilators given history of COPD -sedated with propofol (3) Elevated LFTs: Code(s): R79.89 - Other specified abnormal findings of blood chemistry Status: Acute Assessment and Plan: Elevated LFTs likely related to cardiac arrest -will hydrate patient, -trend LFTs (4) COPD (chronic obstructive pulmonary disease): Code(s): J44.9 - Chronic obstructive pulmonary disease, unspecified Status: Acute Assessment and Plan: Patient with history of COPD, -patient on prednisone at home likely for COPD but unsure -continue bronchodilators, mechanical ventilation (5) Paroxysmal atrial fibrillation: Code(s): I48.0 - Paroxysmal atrial fibrillation Status: Acute Assessment and Plan: Patient currently in sinus rhythm, rate controlled, has been on Coumadin at home with an INR 2.5 -continue heparin infusion -cardiology following the patient (6) Myoclonic jerking: Code(s): G25.3 - Myoclonus Status: Acute Assessment and Plan: Patient is started to have some myoclonic jerks -CT scan of the brain did not show any acute intracranial abnormality, chronic left parietal lobe infarction and chronic age-related findings -patient has been started on Keppra, will continue and monitor -also on propofol (7) DVT prophylaxis: Code(s): Z29.9 - Encounter for prophylactic measures, unspecified Status: Acute Assessment and Plan: DVT prophylaxis: Heparin infusion Stress ulcer prophylaxis: Protonix Additional Plan Records have been ordered from upholstery auto trimmer Code status: Full code Critical care time spent: 51 minutes This dictation may have been done utilizing a voice recognition system. Attempts have been made to correct errors. However, there may be uncorrected grammatical, spelling, and recognition errors present. Due to a high probability of clinically significant, life threatening deterioration, the patient required my highest level of preparedness to intervene emergently and I personally spent this critical care time directly and personally managing the patient. This critical care time included obtaining a history; examining the patient; pulse oximetry; ordering and review of studies; arranging urgent treatment with development of a management plan; evaluation of patient's response to treatment; frequent reassessment; and discussions with other providers. It was exclusive of separately billable procedures and treating other patients and teaching time. Please see Assessment and Plan section and the rest of the note for further information on patient assessment and treatment Poultry Field Service Technician Consult Note Consult date: 03/01/21 Time Seen: 07:03 Reason for consult: Cardiac arrest, acute respiratory failure, elevated LFTs HPI: Mariam Lombardo is a 60 year old female with significant past medical history of essential hypertension, history of tobacco use, atrial fibrillat
[2021-03-01 10:42] LABS: Creatine Kinase 241 U/L (30-135)
[2021-03-01 10:43] LABS: Hemoglobin A1C 6.1 % (<5.7)
[2021-03-01] MEDS: LACTATED RINGERS 1,000 ML 999 ML IV CONT (10:47)
[2021-03-01 11:00] LABS: Lactic Acid Reflex 2.4 mmol/L (0.7-2.1)
[2021-03-01 11:01] LABS: Free T4 Free Thyroxine 1.64 ng/mL (0.78-2.19)
[2021-03-01 11:17] LABS: Thyroid Stimulating Hormone 0.865 uIU/mL (0.465-4.680)
[2021-03-01 11:19] LABS: Amphetamine Screen Urine Negative (Negative); Barbiturate Screen Urine Negative (Negative); Benzodiazepines Screen Urine Positive (Negative); Cannabinoid Screen Urine Positive (Negative); Cocaine Screen Urine Negative (Negative); Methadone Screen Urine Negative (Negative); Opiate Screen Urine Negative (Negative); Phencyclidine Screen Urine Negative (Negative)
[2021-03-01 11:25] LABS: Partial Thromboplastin Time > 200.0 SECONDS (22.3-36.8)
[2021-03-01] MEDS: PANTOPRAZOLE SODIUM IV 40 MG VIAL IV PUSH (12:07)
[2021-03-01] MEDS: CENTRAL LINE FLUSH 10 ML IV PUSH ×2 (12:08→22:30)
[2021-03-01 12:21] LABS: Magnesium 1.7 mg/dL (1.6-2.3)
[2021-03-01 12:22] LABS: Ammonia < 9 umol/L (9-30)
[2021-03-01 12:39] LABS: Troponin I 0.139 ng/mL (0.000-0.034)
[2021-03-01 13:48] LABS: Reflex Lactic Acid Yes or No Add Lactic
[2021-03-01] MEDS: PROPOFOL IV EMULSION 100 ML 14.22 MG IV CONT (14:42)
[2021-03-01 14:45] LABS: Lactic Acid 1.5 mmol/L (0.7-2.1)
[2021-03-01] MEDS: IPRATROPIUM BR 0.02% INH SOLN 0.5 MG/2.5 ML VIAL INHALATION ×2 (14:59→20:52)
[2021-03-01] MEDS: ALBUTEROL SULFATE NEB 2.5 MG/0.5 ML INH INHALATION ×2 (14:59→20:51)
[2021-03-01 15:06] LABS: Troponin I 0.119 ng/mL (0.000-0.034)
[2021-03-01] MEDS: levETIRAcetam 500MG/NACL 100ML 500 MG/100 ML BAG 400 MG IVPB (17:11)
[2021-03-01] MEDS: HYDROCORTISONE SODIUM SUCCINATE 100 MG/2 ML VIAL 50 MG IV PUSH (17:20)
[2021-03-01 17:38] LABS: Glucose Point of Care 93 mg/dl (65-105)
[2021-03-01 17:52] LABS: Partial Thromboplastin Time > 200.0 SECONDS (22.3-36.8)
[2021-03-01] MEDS: PROPOFOL IV EMULSION 100 ML 19.91 MG IV CONT (20:12)
[2021-03-01 23:32] LABS: Glucose Point of Care 100 mg/dl (65-105)
[2021-03-02] VITALS (36 sets, daily range): BP systolic 101–179; BP diastolic 61–95; PULSE 64–100; RESP 18–36; TEMP 35.9–37.4; O2SAT 93–100; BMI 29.8
--- NOTE | 2021-03-02 | ECHO_ITS ---
Patient Info Name: Mariam Lombardo Age: 60 years : 1960 Gender: Female Ht: 68 in Wt: 186 lbs BSA: 2.03 m2 HR: 70 bpm BP: 179 / 63 mmHg Heart Rhythm: Sinus Rhythm Exam Date: 03/02/2021 8:15 AM Exam Location: [facility] Patient Status: Inpatient Admit Date: 03/01/2021 Staff Ordering Physician: Naz Rosario DO Boiler Tester: Albert Seth, FLORECITA, RT Attending Provider: Charla Burden MD Referring Physician: Abraham MAGDALENO; Exam Type: CA echo doppler color flow Study Info Indications I46.2 - Cardiac arrest due to underlying cardiac condition Complete two-dimensional, color flow and Doppler transthoracic echocardiogram is performed. Strain analysis performed. Summary 1. Complete two-dimensional, color flow and Doppler transthoracic echocardiogram is performed. 2. Strain analysis performed. 3. Left ventricular chamber dimension is normal. 4. Left ventricular systolic function is normal, estimated at 65-70%. 5. There is mildly increased left ventricular wall thickness. 6. The left ventricular diastolic function is normal. 7. Global longitudinal strain is normal at -22 %. 8. Left atrial chamber dimension is moderately enlarged. 9. There is moderate aortic valve stenosis with a peak velocity of 258 cm/s, mean gradient of 15 mmHg, and aortic valve area of 1.5 cm2. 10. There is moderate to severe aortic valve regurgitation. 11. There is moderate aortic valve calcification. 12. There is moderate mitral valve regurgitation. 13. There is mild tricuspid valve regurgitation. 14. Severe pulmonary hypertension, estimated pulmonary arterial systolic pressure is 60 mmHg. Left Ventricle Left ventricular chamber dimension is normal. Left ventricular systolic function is normal, estimated at 65-70%. There is mildly increased left ventricular wall thickness. The left ventricular diastolic function is normal. Global longitudinal strain is normal at -22 %. Right Ventricle Right ventricular chamber dimension is normal. Right ventricular systolic function is normal. Left Atria Left atrial chamber dimension is moderately enlarged. Right Atria Right atrial chamber dimension is normal. Atrial Septum Intact interatrial septum visualized by color flow imaging. Aortic Valve The aortic valve is not well visualized. There is moderate aortic valve stenosis with a peak velocity of 258 cm/s, mean gradient of 15 mmHg, and aortic valve area of 1.5 cm2. There is moderate to severe aortic valve regurgitation. There is moderate aortic valve calcification. Pulmonic Valve The pulmonic valve is normal. There is no pulmonic valve stenosis. There is trace pulmonic regurgitation. Mitral Valve The mitral valve has calcified annulus. There is no mitral valve stenosis. There is moderate mitral valve regurgitation. Tricuspid Valve The tricuspid valve leaflets are normal. There is no significant tricuspid valve stenosis. There is mild tricuspid valve regurgitation. Severe pulmonary hypertension, estimated pulmonary arterial systolic pressure is 60 mmHg. Pericardium/Pleural The pericardium appears normal. There is no pericardial effusion. Inferior Vena Cava Dilated inferior vena cava with <50% collapse upon inspiration consistent with elevated right atrial pressure, 15 mmHg. Aorta The aortic root size at the sinus of Valsalva is normal. Left Ventricular Outflow Tract Name
[2021-03-02 00:02] LABS: Troponin I 0.067 ng/mL (0.000-0.034)
[2021-03-02 00:57] LABS: Partial Thromboplastin Time 150.4 SECONDS (22.3-36.8)
[2021-03-02] MEDS: PROPOFOL IV EMULSION 100 ML 19.91 MG IV CONT (02:00)
--- NOTE | 2021-03-02 05:00 | ECG_ITS ---
Measurements Intervals [place] Rate: 77 P: 77 HI: 154 QRS: 11 QRSD: 93 T: 54 QT: 424 QTc: 481 Interpretive Statements SINUS RHYTHM BORDERLINE ST ABNORMALITY- ANTEROLAT/INF LEADS BASELINE ARTIFACT- I, II, III, V3-V4 BORDERLINE ECG Electronically Signed On 03-02-2021 11:28:37 CDT by Uzair Shook D.O.
[2021-03-02] MEDS: PROPOFOL IV EMULSION 100 ML 22.75 MG IV CONT (05:55)
[2021-03-02] MEDS: SODIUM CHLORIDE 0.9% IV 1,000 ML 125 ML IV CONT (05:56)
[2021-03-02] MEDS: CENTRAL LINE FLUSH 10 ML IV PUSH ×3 (05:57→22:00)
[2021-03-02] MEDS: levETIRAcetam 500MG/NACL 100ML 500 MG/100 ML BAG 400 MG IVPB ×2 (05:57→21:35)
[2021-03-02] MEDS: HYDROCORTISONE SODIUM SUCCINATE 100 MG/2 ML VIAL 50 MG IV PUSH ×2 (05:58→18:01)
[2021-03-02 06:24] LABS: Alveolar/Arterial O2 Gradient 83.3 mmHg; Base Excess ABG -8.2 mEq/l (+/-2.0); Fractional Inspired Oxygen 30 %; HCO3 ABG 16.4 mEq/l (22.0-26.0); Oxygen Content ABG 15.2 %vol (16.0-22.0); Oxyhemoglobin 95.2 % THb (90.0-100.0); PCO2 ABG 30.7 mmHg (35.0-45.0); PO2 ABG 94.5 mmHg (80.0-100.0); PO2 FiO2 Ratio Arterial Blood 3.15 %; Total Hemoglobin 11.3 g/dL (12.0-18.0); pH ABG 7.345 (7.350-7.450)
[2021-03-02 06:25] LABS: Modified Allen's Test Pass; Site Drawn RIGHT RADIAL
[2021-03-02 06:26] LABS: Arterial Blood Gas PEEP 5 cmH2O; Arterial Blood Gas Tidal Volume 450 ml; Arterial Blood Gas Vent Mode CMV; Arterial Blood Gas Ventilator rate 18 /MIN; Device VENTILATOR
[2021-03-02 06:54] LABS: Glucose Point of Care 89 mg/dl (65-105)
[2021-03-02 07:49] LABS: Glucose Point of Care 143 mg/dl (65-105)
[2021-03-02] MEDS: IPRATROPIUM BR 0.02% INH SOLN 0.5 MG/2.5 ML VIAL INHALATION ×3 (09:25→20:12)
[2021-03-02] MEDS: ALBUTEROL SULFATE NEB 2.5 MG/0.5 ML INH INHALATION ×3 (09:26→20:12)
[2021-03-02] MEDS: ASPIRIN 81 MG CHEWABLE TABLET FEED TUBE (10:03)
[2021-03-02] MEDS: PANTOPRAZOLE SODIUM IV 40 MG VIAL IV PUSH (10:03)
[2021-03-02 10:09] LABS: Lactic Acid Reflex 0.9 mmol/L (0.7-2.1)
[2021-03-02 10:10] LABS: Alanine Aminotransferase 107 U/L (4-35); Albumin Level 2.9 g/dL (3.5-5.1); Alkaline Phosphatase 65 U/L (38-126); Anion Gap 6 mmol/L (8-16); Aspartate Amino Transferase 73 U/L (14-36); Bilirubin,Total 0.4 mg/dL (0.2-1.3); Blood Urea Nitrogen 20 mg/dL (7-17); Calcium 7.5 mg/dL (8.4-10.2); Carbon Dioxide 23 mmol/L (22-30); Chloride 114 mmol/L (98-107); Estimated CRCL calculation 85 ml/min; Estimated Glomerular Filt Rate > 60; Glucose 138 mg/dL (65-110); Magnesium 1.5 mg/dL (1.6-2.3); Phosphorus 2.1 mg/dL (2.5-4.5); Potassium 3.3 mmol/L (3.4-5.0); Sodium 143 mmol/L (137-145)
[2021-03-02 10:11] LABS: Partial Thromboplastin Time 91.2 SECONDS (22.3-36.8)
[2021-03-02 10:12] LABS: Basophils Percent Auto 0.2 % (0.2-1.2); Eosinophils Percent Auto 0.1 % (0-4.4); Hemoglobin 10.6 g/dL (12.0-15.0); Immature Granulocyte Absolute 0.12 K/mm3 (0.00-0.031); Immature Granulocyte Percent A 0.7 % (0-0.5); Lymphocytes Absolute Auto 0.81 K/mm3 (0.9-3.2); Lymphocytes Percent Auto 4.9 % (18.3-44.2); Mean Corpuscular HGB Conc 32.1 g/dl (32-36); Mean Corpuscular Hemoglobin 28.3 pg (26-34); Mean Corpuscular Volume 88.2 fl (80-100); Mean Platelet Volume 10.5 fl (7.4-10.4); Monocytes Percent Auto 5.9 % (2.6-8.5); Neutrophils Absolute Auto 14.7 K/mm3 (1.3-6.7); Neutrophils Percent Auto 88.2 % (45.5-73.1); Platelet Count Result 175 k/mm3 (150-375); Red Blood Count 3.74 M/mm3 (4.2-5.4); Red Cell Distribution Width 14.8 % (11.5-14.5); White Blood Count 16.6 K/mm3 (4.5-10.0)
--- NOTE | 2021-03-02 10:13 | PM.PNCARD ---
Progress Note: A&P Assessment and Plan (1) Cardiac arrest: Code(s): I46.9 - Cardiac arrest, cause unspecified Status: Acute Assessment and Plan: Patient had an asystolic and PDA arrest, no evidence of any torsade or ventricular arrhythmias at the time of the arrest or since then. No evidence of acute RI Takes sotalol, but No evidence of ventricular arrhythmias Has COPD but does not appear to have significant CO2 retention No evidence of PE Hemodynamically stable since admission. Continue supportive care. Echo pending (2) Elevated troponin I level: Code(s): R77.8 - Other specified abnormalities of plasma proteins Status: Acute Assessment and Plan: Type 2 RI secondary to cardiac arrest. She did have some lateral ST depression on admission but apparently cardiac catheterization in September did not show any CAD. (3) Paroxysmal atrial fibrillation: Code(s): I48.0 - Paroxysmal atrial fibrillation Status: Acute Assessment and Plan: History of paroxysmal AFib and atrial flutter, taking sotalol, with a AFib ablation in August 2020 in [place]. Records have been requested Currently in sinus rhythm (4) Chronic anticoagulation: Code(s): Z79.01 - skilled nursing (current) use of anticoagulants Status: Acute Assessment and Plan: Therapeutically anticoagulated with warfarin. Changed to heparin drip now. (5) Chronic kidney disease: Code(s): N18.9 - Chronic kidney disease, unspecified Status: Acute Assessment and Plan: Has stage IIIB kidney disease, presumably chronic. (6) COPD (chronic obstructive pulmonary disease): Code(s): J44.9 - Chronic obstructive pulmonary disease, unspecified Status: Acute Assessment and Plan: Apparently takes prednisone chronically at home. May need ongoing steroids. (7) Elevated LFTs: Code(s): R79.89 - Other specified abnormal findings of blood chemistry Status: Acute Assessment and Plan: Likely secondary to the cardiac arrest (8) Acute respiratory failure with hypoxia: Code(s): J96.01 - Acute respiratory failure with hypoxia Status: Acute Assessment and Plan: On ventilator, FiO2 60% (9) Myoclonic jerking: Code(s): G25.3 - Myoclonus Status: Acute Assessment and Plan: On Keppra. 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 Subjective Date/time seen: 03/02/21 10:13 Cardiology follow up for cardiac arrest Date of service 03/02/2021: No acute events overnight. Remains intubated and sedated on target temperature management. Prognosis is guarded. Review of Systems Review of Systems: ROS unobtainable: Yes unobtainable due to endotracheal tube, unobtainable due to medical condition and unobtainable due to mental status Exam Narrative: Well-groomed middle-aged female who is sedated and unresponsive, intubated. Const: General: no acute distress HENMT: Mouth: Yes moist mucous membranes Eyes: General: appearance normal, both eyes and all related structures Neck: Neck: supple Thyroid: thyroid normal Carotids: no bruits Lymphatic: lymphadenopathy not noted Resp: Effort & Inspection: normal respiratory effort Auscultation: clear to auscultation bilaterally Cardio: Rate: regular rate Rhythm: regular rhythm Heart sounds: no murmurs and no rubs GI: Inspection: non-distended Other: Urostomy bag in place, healed midline scar Skin: General skin exam: normal color and no rashes or lesions noted Neuro: Cognition (Neuro): abnormal cognition Other: Sedated and unresponsive Extrem: General: no edema and no pedal edema Other: Distal pulses decreased. Extremities cool (on TTM) Psych: Mental Status: mental status grossly abnormal Objective Data Vital Signs Vital Signs: Vital Signs - 24 hr 03/01/21 10:42 03/01/21 10:47 03/01/21 12:00 Temperature 35.7 C L Pulse Rate 81 75 63 Respiratory Rate 24 H 20 18
--- NOTE | 2021-03-02 11:06 | WPDNEURCNPN ---
Assessment and Plan Additional Plan Patient will be slowly taken off the sedation, EEG will be obtained to evaluate the status and further recommendation according Consult date: 03/02/21 Time Seen: 10:45 HPI: Mariam Lombardo is a 60 year old female Admitted to the hospital with cardiac arrest, in addition to the history of carcinoma of the bladder and status post ileal conduit placement, atrial fibrillation, sinus node ablation, and cardiac arrest, patient reportedly resides in [place], was visiting wedding. When she got in the back seat in the car with her son she complained that she was unable to breathe, the son pulled over and called 911 at that time he noted that she was unresponsive and slumped back ,he got her out of the car and bystanders initiated the CPR, EMS arrived and proceeded to continued CPR ,patient received 3 rounds of epinephrine and return of spontaneous circulation en route to the hospital, in the emergency room patient was placed on ventilator support, CTA of the chest did not document any acute pulmonary emboli, EKG reveals sinus rhythm and chest x-ray was also negative, CBC revealed 16,000 white cells with elevated troponin and AST and ALT and creatinine of 1.5 subsequently patient was placed on the ongoing ventilator support, neuro consultation has been obtained to evaluate the neurological status, at this stage patient is sedated, on ventilator and unresponsive Review of Systems Review of Systems: All systems reviewed & are unremarkable except as noted in HPI and below PMFSH Past Medical History Medical History Atrial fibrillation Bladder cancer Chronic anticoagulation Paroxysmal atrial fibrillation Surgical History Surgical History H/O cardiac radiofrequency ablation H/O total cystectomy History of ileal conduit Family History Family History Mother COPD (chronic obstructive pulmonary disease) Father Leukemia Sibling Atrial fibrillation Social History Social History Social History: History of tobacco abuse Smoking packs per day: 1 Smoking cigarettes per day: 20.0 Years smoked: 30 Smoking pack-years: 30.00 Smoking status: Former smoker Tobacco type: cigarettes Smoking end date: 11/27/20 Alcohol intake: current Drinks per week: 3 Substance use: current Substance use type: marijuana Last use: 02/28/21 Spiritual care concerns: No Meds Home Medications and Allergies Home Medications Medication Instructions Recorded Confirmed Type furosemide 20 mg PO DAILY 03/01/21 03/01/21 History prednisone 5 mg PO DAILY 03/01/21 03/01/21 History sotalol 120 mg PO BID 03/01/21 03/01/21 History umeclidinium-vilanterol [Anoro 1 inh INHALATION DAILY 03/01/21 03/01/21 History Ellipta] venlafaxine 75 mg PO DAILY 03/01/21 03/01/21 History warfarin 5 mg PO DAILY 03/01/21 03/01/21 History Allergies Allergy/AdvReac Type Severity Reaction Status Date / Time tetracycline Allergy Intermediate HIVES Verified 07/02/11 15:59 ADHESIVES Allergy Unknown SKIN Uncoded 07/12/11 07:34 IRRITATION Vital Signs Vital Signs - 24 hr 03/01/21 12:00 03/01/21 12:09 03/01/21 14:00 Temperature 35.7 C L 35.9 C L Pulse Rate 63 70 64 Respiratory Rate 18 22 H Blood Pressure 115/52 L 109/65 Pulse Oximetry 100 100 100 03/01/21 14:28 03/01/21 14:42 03/01/21 15:00 Temperature Pulse Rate 70 64 62 Respiratory Rate 30 H 24 H 19 Blood Pressure Pulse Oximetry 03/01/21 15:04 03/01/21 15:09 03/01/21 16:00 Temperature 35.9 C L Pulse Rate 61 61 64 Respiratory Rate 22 H 30 H Blood Pressure 113/50 L Pulse Oximetry 100 100 03/01/21 16:25 03/01/21 16:53 03/01/21 17:47 Temperature Pulse Rate 66 64 65 Respiratory Rate 34 H 32 H Blood Pressure Pulse Oximetry
[2021-03-02] MEDS: PROPOFOL IV EMULSION 100 ML 14.22 MG IV CONT ×2 (12:27→19:29)
--- NOTE | 2021-03-02 12:48 | WPDINTPN ---
Progress Note: A&P Assessment and Plan (1) Cardiac arrest: Code(s): I46.9 - Cardiac arrest, cause unspecified Status: Acute Assessment and Plan: Patient was asystole and PEA arrest of unknown etiology, patient is on sotalol but there is no evidence of prolonged QT intervals, EKGs did not show any torsades of ventricular arrhythmias. According the ER physician's patient was down for about 25 minutes -no evidence of acute [place], -patient has a history of COPD but her ABGs did not show hypercapnia -CTA chest with no evidence of PE or dissection -hemodynamically stable -status post target temperature management -patient has had some myoclonic jerks/seizure activity, started on Keppra -echocardiogram has been ordered and pending -appreciate Neurology evaluation and recommendations, EEG once patient is off propofol (2) Acute respiratory failure with hypoxia: Code(s): J96.01 - Acute respiratory failure with hypoxia Status: Acute Assessment and Plan: Acute respiratory failure due to cardiac arrest, -intubated in the field on 03/01/2021 -on CMV mode of ventilation, peep of 5, and 30% FiO2 -chest x-ray and ABGs reviewed, -continue bronchodilators given history of COPD -sedated with propofol, wean and propofol as tolerated now that patient is off admission management (3) Elevated LFTs: Code(s): R79.89 - Other specified abnormal findings of blood chemistry Status: Acute Assessment and Plan: Elevated LFTs likely related to cardiac arrest -will hydrate patient, -LFTs are improving (4) COPD (chronic obstructive pulmonary disease): Code(s): J44.9 - Chronic obstructive pulmonary disease, unspecified Status: Acute Assessment and Plan: Patient with history of COPD, -patient on prednisone at home likely for COPD but unsure -continue bronchodilators, mechanical ventilation (5) Paroxysmal atrial fibrillation: Code(s): I48.0 - Paroxysmal atrial fibrillation Status: Acute Assessment and Plan: Patient currently in sinus rhythm, rate controlled, has been on Coumadin at home with an INR 2.5 -continue heparin infusion -cardiology following the patient (6) Myoclonic jerking: Code(s): G25.3 - Myoclonus Status: Acute Assessment and Plan: Patient is started to have some myoclonic jerks -CT scan of the brain did not show any acute intracranial abnormality, chronic left parietal lobe infarction and chronic age-related findings -patient has been started on Keppra, will continue and monitor -also on propofol (7) DVT prophylaxis: Code(s): Z29.9 - Encounter for prophylactic measures, unspecified Status: Acute Assessment and Plan: DVT prophylaxis: Heparin infusion Stress ulcer prophylaxis: Protonix Additional Plan Records have been ordered from manager car in [place] Code status: Full code Critical care time spent: 34 minutes This dictation may have been done utilizing a voice recognition system. Attempts have been made to correct errors. However, there may be uncorrected grammatical, spelling, and recognition errors present. Due to a high probability of clinically significant, life threatening deterioration, the patient required my highest level of preparedness to intervene emergently and I personally spent this critical care time directly and personally managing the patient. This critical care time included obtaining a history; examining the patient; pulse oximetry; ordering and review of studies; arranging urgent treatment with development of a management plan; evaluation of patient's response to treatment; frequent reassessment; and discussions with other providers. It was exclusive of separately billable procedures and treating other patients and teaching time. Please see Assessment and Plan section and the rest of the note for further information on patient assessment and treatment Subjective Date/time seen: 03/02/21
[2021-03-02 12:52] LABS: Glucose Point of Care 115 mg/dl (65-105)
[2021-03-02] MEDS: MAGNESIUM SULF 2 GM/WATER 50ML 2 GM/50 ML BAG IVPB (14:47)
[2021-03-02] MEDS: POTASSIUM PHOS/SODIUM PHOS 250 MG TABLET PO (14:51)
[2021-03-02 15:30] LABS: Partial Thromboplastin Time 84.6 SECONDS (22.3-36.8)
[2021-03-02 19:04] LABS: Glucose Point of Care 83 mg/dl (65-105)
[2021-03-03] VITALS (33 sets, daily range): BP systolic 118–165; BP diastolic 57–81; PULSE 83–135; RESP 18–36; TEMP 37–37.8; O2SAT 93–98
[2021-03-03 00:13] LABS: Glucose Point of Care 146 mg/dl (65-105)
[2021-03-03] MEDS: PROPOFOL IV EMULSION 100 ML 14.22 MG IV CONT (02:29)
[2021-03-03] MEDS: IPRATROPIUM BR 0.02% INH SOLN 0.5 MG/2.5 ML VIAL INHALATION ×5 (02:56→19:33)
[2021-03-03] MEDS: ALBUTEROL SULFATE NEB 2.5 MG/0.5 ML INH INHALATION ×5 (02:56→19:33)
[2021-03-03 04:13] LABS: Alveolar/Arterial O2 Gradient 93.5 mmHg; Arterial Blood Gas Ventilator rate 18 /MIN; Base Excess ABG -1.6 mEq/l (+/-2.0); Carboxyhemoglobin 0.3 % THb (0-2.0); Device VENTILATOR; Fractional Inspired Oxygen 30 %; HCO3 ABG 21.2 mEq/l (22.0-26.0); Methemoglobin ABG 0.3 %THb (0-1.5); Modified Allen's Test Unable to perform; Oxygen Content ABG 15.7 %vol (16.0-22.0); Oxygen Saturation ABG 97.1 % (95.0-100.0); Oxyhemoglobin 95.1 % THb (90.0-100.0); PCO2 ABG 29.9 mmHg (35.0-45.0); PO2 ABG 85.3 mmHg (80.0-100.0); PO2 FiO2 Ratio Arterial Blood 2.84 %; Reduced Hemoglobin 4.3 %THb (0-5.0); Site Drawn RIGHT RADIAL; Total Hemoglobin 11.7 g/dL (12.0-18.0); pH ABG 7.468 (7.350-7.450)
[2021-03-03 04:14] LABS: Arterial Blood Gas PEEP 5 cmH2O; Arterial Blood Gas Tidal Volume 450 ml; Arterial Blood Gas Vent Mode CMV
[2021-03-03 05:28] LABS: Basophils Percent Auto 0.3 % (0.2-1.2); Eosinophils Percent Auto 0.1 % (0-4.4); Hematocrit 33.5 % (37.0-47.0); Hemoglobin 10.8 g/dL (12.0-15.0); Immature Granulocyte Absolute 0.17 K/mm3 (0.00-0.031); Immature Granulocyte Percent A 1.1 % (0-0.5); Lymphocytes Absolute Auto 1.26 K/mm3 (0.9-3.2); Lymphocytes Percent Auto 8.4 % (18.3-44.2); Mean Corpuscular HGB Conc 32.2 g/dl (32-36); Mean Corpuscular Hemoglobin 28.8 pg (26-34); Mean Corpuscular Volume 89.3 fl (80-100); Mean Platelet Volume 10.3 fl (7.4-10.4); Monocytes Absolute Auto 1.2 K/mm3 (0.1-0.6); Monocytes Percent Auto 7.8 % (2.6-8.5); Neutrophils Absolute Auto 12.4 K/mm3 (1.3-6.7); Neutrophils Percent Auto 82.3 % (45.5-73.1); Platelet Count Result 188 k/mm3 (150-375); Red Blood Count 3.75 M/mm3 (4.2-5.4); Red Cell Distribution Width 15.3 % (11.5-14.5); White Blood Count 15.1 K/mm3 (4.5-10.0)
[2021-03-03] MEDS: PROPOFOL IV EMULSION 100 ML 17.06 MG IV CONT ×2 (05:34→21:24)
[2021-03-03 05:40] LABS: INR 2.8; Prothrombin Time 28.8 Seconds (11.1-14.7)
[2021-03-03 05:41] LABS: Partial Thromboplastin Time 57.9 SECONDS (22.3-36.8)
[2021-03-03] MEDS: HYDROCORTISONE SODIUM SUCCINATE 100 MG/2 ML VIAL 50 MG IV PUSH ×2 (05:44→17:32)
[2021-03-03] MEDS: levETIRAcetam 500MG/NACL 100ML 500 MG/100 ML BAG 400 MG IVPB ×2 (05:45→17:31)
[2021-03-03] MEDS: CENTRAL LINE FLUSH 10 ML IV PUSH ×3 (05:45→21:25)
[2021-03-03 05:53] LABS: Alanine Aminotransferase 81 U/L (4-35); Alkaline Phosphatase 67 U/L (38-126); Anion Gap 5 mmol/L (8-16); Aspartate Amino Transferase 58 U/L (14-36); Bilirubin,Total 0.6 mg/dL (0.2-1.3); Blood Urea Nitrogen 17 mg/dL (7-17); Calcium 7.9 mg/dL (8.4-10.2); Carbon Dioxide 24 mmol/L (22-30); Chloride 116 mmol/L (98-107); Estimated CRCL calculation 61 ml/min; Estimated Glomerular Filt Rate 56; Glucose 164 mg/dL (65-110); Lactic Acid Reflex 1.2 mmol/L (0.7-2.1); Phosphorus 2.8 mg/dL (2.5-4.5); Potassium 3.3 mmol/L (3.4-5.0); Sodium 145 mmol/L (137-145)
[2021-03-03] MEDS: HEPARIN SODIUM 5,000 UNITS/ML VIAL 3000 UNITS IV PUSH (06:20)
[2021-03-03 07:10] LABS: Glucose Point of Care 123 mg/dl (65-105)
[2021-03-03] MEDS: ASPIRIN 81 MG CHEWABLE TABLET FEED TUBE (08:52)
[2021-03-03] MEDS: PANTOPRAZOLE SODIUM IV 40 MG VIAL IV PUSH (08:53)
--- NOTE | 2021-03-03 09:06 | WPDINTPN ---
Progress Note: A&P Assessment and Plan (1) Cardiac arrest: Code(s): I46.9 - Cardiac arrest, cause unspecified Status: Acute Assessment and Plan: Patient was asystole and PEA arrest of unknown etiology, patient is on sotalol but there is no evidence of prolonged QT intervals, EKGs did not show any torsades of ventricular arrhythmias. According the ER physician's patient was down for about 25 minutes -no evidence of acute AL, -patient has a history of COPD but her ABGs did not show hypercapnia -CTA chest with no evidence of PE or dissection -hemodynamically stable -status post target temperature management -echocardiogram has been ordered and pending (2) Anoxic brain injury: Code(s): G93.1 - Anoxic brain damage, not elsewhere classified Status: Acute Assessment and Plan: - status post target temperature management -CT scan of the brain did not show any acute intracranial abnormality, chronic left parietal lobe infarction and chronic age-related findings -appreciate Neurology evaluation and recommendations - continue to hold propofol - EGD planned for today (3) Myoclonic jerking: Code(s): G25.3 - Myoclonus Status: Acute Assessment and Plan: likely secondary to anoxic brain injury -patient has been started on Keppra, will continue and monitor -also on propofol (4) Acute respiratory failure with hypoxia: Code(s): J96.01 - Acute respiratory failure with hypoxia Status: Acute Assessment and Plan: Acute respiratory failure due to cardiac arrest, -intubated in the field on 03/01/2021 -on CMV mode of ventilation, peep of 5, and 30% FiO2 -chest x-ray and ABGs reviewed, -continue bronchodilators given history of COPD - her vent weaning will depend on her neurological improvement (5) Elevated LFTs: Code(s): R79.89 - Other specified abnormal findings of blood chemistry Status: Acute Assessment and Plan: Elevated LFTs likely related to cardiac arrest -will hydrate patient, -LFTs are improving (6) COPD (chronic obstructive pulmonary disease): Code(s): J44.9 - Chronic obstructive pulmonary disease, unspecified Status: Acute Assessment and Plan: Patient with history of COPD but does not appear in any exacerbation -patient on prednisone at home likely for COPD but unsure -continue bronchodilators, mechanical ventilation (7) Paroxysmal atrial fibrillation: Code(s): I48.0 - Paroxysmal atrial fibrillation Status: Acute Assessment and Plan: Patient currently in sinus rhythm, rate controlled, has been on Coumadin at home with an INR 2.5 -continue heparin infusion -cardiology following the patient (8) DVT prophylaxis: Code(s): Z29.9 - Encounter for prophylactic measures, unspecified Status: Acute Assessment and Plan: DVT prophylaxis: Heparin infusion Stress ulcer prophylaxis: Protonix (9) Leukocytosis: Code(s): D72.829 - Elevated white blood cell count, unspecified Status: Acute Assessment and Plan: likely stress response. improving. patient afebrile. chest x-ray shows atelectasis (10) Electrolyte abnormality: Code(s): E87.8 - Other disorders of electrolyte and fluid balance, not elsewhere classified Status: Acute Assessment and Plan: replace low potassium increase free water flushes Additional Plan DVT prophylaxis - currently on heparin infusion Stress ulcer prophylaxis - PPI Nutrition - continue Tube Feeds Code Status - Full Code Records have been ordered from gynaecological oncologist in [place] Critical care time spent: 32 minutes This dictation may have been done utilizing a voice recognition system. Attempts have been made to correct errors. However, there may be uncorrected grammatical, spelling, and recognition errors present. Due to a high probability of clinically significant, life threatening deterioration, the patient require
[2021-03-03] MEDS: POTASSIUM CHLORIDE 20 MEQ PACKET (FOR LIQUID) 40 MEQ FEED TUBE (09:38)
[2021-03-03] MEDS: HEPARIN SOD/D5W 100 UNITS/ML 25,000 UNITS/250 ML BAG IV CONT (11:24)
[2021-03-03 12:11] LABS: Glucose Point of Care 179 mg/dl (65-105)
--- NOTE | 2021-03-03 12:14 | PCDIET ---
Nutrition Follow-Up Complete: Nutrition Diagnosis: Inadequate oral intake related to oral intubation as evidenced by NPO status. Nutrition Goal: Patient to meet estimated nutritional needs. Goal in progress. Patient tolerating Vital 1.2 at 40mL/hr goal rate with 30mL water flush every 4 hours. Last recorded weight is 88.1 kg which is down from last review. -I/O. Bowel Motility: Last documented BM on 03/01/21 x 1. Labs Reviewed: WBC (15.1), RBC (3.75), Hgb (10.8), Hct (33.5), Glu (164), K (3.3), Alb (3.0), Kirk Ca (8.7) Meds Noted: Propofol (rate of 17.06mL/hr provides 450kcal per day), Albuterol, Solu Cortef, Atrovent, Keppra, Protonix, KCl Additional Notes: No documented pressure ulcers. Will continue to monitor with same goal. Nutrition Monitoring and Evaluation: Follow up every Tuesday/Tuesday.
[2021-03-03 13:18] LABS: Partial Thromboplastin Time 82.6 SECONDS (22.3-36.8)
--- NOTE | 2021-03-03 14:16 | PM.PNCARD ---
Progress Note: A&P Assessment and Plan (1) Cardiac arrest: Code(s): I46.9 - Cardiac arrest, cause unspecified Status: Acute Assessment and Plan: Patient had an asystolic and PDA arrest, no evidence of any torsade or ventricular arrhythmias at the time of the arrest or since then. No evidence of acute [place] Takes sotalol, but No evidence of ventricular arrhythmias Has COPD but does not appear to have significant CO2 retention No evidence of PE Hemodynamically stable since admission. Continue supportive care. (2) Elevated troponin I level: Code(s): R77.8 - Other specified abnormalities of plasma proteins Status: Acute Assessment and Plan: Type 2 FL secondary to cardiac arrest. She did have some lateral ST depression on admission but apparently cardiac catheterization in September did not show any CAD. (3) Paroxysmal atrial fibrillation: Code(s): I48.0 - Paroxysmal atrial fibrillation Status: Acute Assessment and Plan: History of paroxysmal AFib and atrial flutter, taking sotalol, with a AFib ablation in August 2020 in [place]. Records have been requested Currently in sinus rhythm (4) Chronic anticoagulation: Code(s): Z79.01 - terminal clerk (current) use of anticoagulants Status: Acute Assessment and Plan: Therapeutically anticoagulated with warfarin. INR still elevated. Will DC heparin for now (5) Chronic kidney disease: Code(s): N18.9 - Chronic kidney disease, unspecified Status: Acute Assessment and Plan: Has stage IIIB kidney disease, presumably chronic. (6) COPD (chronic obstructive pulmonary disease): Code(s): J44.9 - Chronic obstructive pulmonary disease, unspecified Status: Acute Assessment and Plan: Apparently takes prednisone chronically at home. May need ongoing steroids. (7) Elevated LFTs: Code(s): R79.89 - Other specified abnormal findings of blood chemistry Status: Acute Assessment and Plan: Likely secondary to the cardiac arrest (8) Acute respiratory failure with hypoxia: Code(s): J96.01 - Acute respiratory failure with hypoxia Status: Acute Assessment and Plan: On ventilator, FiO2 60% (9) Myoclonic jerking: Code(s): G25.3 - Myoclonus Status: Acute Assessment and Plan: On Keppra. 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 Subjective Date/time seen: 03/03/21 14:16 Interval history: Reason for consult: Cardiac arrest, acute respiratory failure, myoclonic jerks, elevated LFTs Date of service 03/03/2021: Unfortunately, no significant or meaningful improvement to this point. Not responsive. Review of Systems Review of Systems: ROS unobtainable: Yes unobtainable due to endotracheal tube, unobtainable due to medical condition and unobtainable due to mental status Cardiovascular: Cardiovascular: Reports syncope Exam Narrative: Well-groomed middle-aged female who is sedated and unresponsive, intubated. Const: General: no acute distress HENMT: Mouth: Yes moist mucous membranes Eyes: General: appearance normal, both eyes and all related structures Neck: Neck: supple Carotids: no bruits Resp: Effort & Inspection: normal respiratory effort Auscultation: clear to auscultation bilaterally Cardio: Rate: tachycardic Rhythm: regular rhythm Heart sounds: no murmurs and no rubs GI: Inspection: non-distended Other: Urostomy bag in place, healed midline scar Skin: General skin exam: normal color and no rashes or lesions noted Neuro: Cognition (Neuro): abnormal cognition Other: Sedated and unresponsive. Vertical gaze Extrem: General: no edema and no pedal edema Psych: Mental Status: mental status grossly abnormal Objective Data Vital Signs Vital Signs: Vital Signs - 24 hr 03/02/21 14:40 03/02/21 14:49 03/02/21 16:00 Temperature Pulse Rate 88 100 91 Respiratory Rate 30 H 23 H 22 H Blood P
[2021-03-03] MEDS: PROPOFOL IV EMULSION 100 ML 11.38 MG IV CONT (15:29)
[2021-03-03 16:59] LABS: Glucose Point of Care 185 mg/dl (65-105)
[2021-03-04] VITALS (32 sets, daily range): BP systolic 110–193; BP diastolic 67–95; PULSE 81–138; RESP 18–40; TEMP 36.2–37.6; O2SAT 93–99
[2021-03-04 00:59] LABS: Glucose Point of Care 166 mg/dl (65-105)
[2021-03-04] MEDS: IPRATROPIUM BR 0.02% INH SOLN 0.5 MG/2.5 ML VIAL INHALATION ×4 (01:10→20:13)
[2021-03-04] MEDS: ALBUTEROL SULFATE NEB 2.5 MG/0.5 ML INH INHALATION ×4 (01:10→20:13)
[2021-03-04] MEDS: PROPOFOL IV EMULSION 100 ML 17.06 MG IV CONT ×3 (03:16→20:00)
[2021-03-04 04:53] LABS: Alveolar/Arterial O2 Gradient 82.4 mmHg; Base Excess ABG 0.8 mEq/l (+/-2.0); Carboxyhemoglobin 0.3 % THb (0-2.0); Fractional Inspired Oxygen 30 %; HCO3 ABG 25.4 mEq/l (22.0-26.0); Methemoglobin ABG 0.4 %THb (0-1.5); Oxygen Content ABG 14.7 %vol (16.0-22.0); Oxygen Saturation ABG 96.4 % (95.0-100.0); Oxyhemoglobin 94.4 % THb (90.0-100.0); PCO2 ABG 40.6 mmHg (35.0-45.0); PO2 ABG 83.8 mmHg (80.0-100.0); PO2 FiO2 Ratio Arterial Blood 2.79 %; Reduced Hemoglobin 4.9 %THb (0-5.0); pH ABG 7.415 (7.350-7.450)
[2021-03-04 04:54] LABS: Arterial Blood Gas PEEP 5 cmH2O; Arterial Blood Gas Tidal Volume 420 ml; Arterial Blood Gas Vent Mode CMV; Arterial Blood Gas Ventilator rate 18 /MIN; Device VENTILATOR; Modified Allen's Test Unable to perform; Site Drawn RIGHT RADIAL
[2021-03-04 05:25] LABS: Hematocrit 31.3 % (37.0-47.0); Hemoglobin 9.9 g/dL (12.0-15.0); Mean Corpuscular HGB Conc 31.6 g/dl (32-36); Mean Corpuscular Hemoglobin 28.4 pg (26-34); Mean Corpuscular Volume 89.7 fl (80-100); Mean Platelet Volume 10.2 fl (7.4-10.4); Platelet Count Result 167 k/mm3 (150-375); Red Blood Count 3.49 M/mm3 (4.2-5.4); Red Cell Distribution Width 15.5 % (11.5-14.5); White Blood Count 12.1 K/mm3 (4.5-10.0)
[2021-03-04] MEDS: HYDROCORTISONE SODIUM SUCCINATE 100 MG/2 ML VIAL 50 MG IV PUSH ×2 (05:27→17:20)
[2021-03-04] MEDS: CENTRAL LINE FLUSH 10 ML IV PUSH ×3 (05:29→20:51)
[2021-03-04] MEDS: levETIRAcetam 500MG/NACL 100ML 500 MG/100 ML BAG 400 MG IVPB ×2 (05:32→17:19)
[2021-03-04 05:35] LABS: INR 1.4; Prothrombin Time 16.9 Seconds (11.1-14.7)
[2021-03-04 05:38] LABS: Alanine Aminotransferase 55 U/L (4-35); Alkaline Phosphatase 63 U/L (38-126); Anion Gap 4 mmol/L (8-16); Aspartate Amino Transferase 56 U/L (14-36); Bilirubin,Total 0.3 mg/dL (0.2-1.3); Blood Urea Nitrogen 24 mg/dL (7-17); Calcium 8.7 mg/dL (8.4-10.2); Carbon Dioxide 28 mmol/L (22-30); Chloride 118 mmol/L (98-107); Estimated CRCL calculation 67 ml/min; Estimated Glomerular Filt Rate > 60; Glucose 172 mg/dL (65-110); Magnesium 2.4 mg/dL (1.6-2.3); Phosphorus 2.5 mg/dL (2.5-4.5); Potassium 3.1 mmol/L (3.4-5.0); Sodium 150 mmol/L (137-145)
[2021-03-04 07:36] LABS: Glucose Point of Care 122 mg/dl (65-105)
[2021-03-04] MEDS: POTASSIUM CHLORIDE 20 MEQ PACKET (FOR LIQUID) 40 MEQ FEED TUBE (08:47)
[2021-03-04] MEDS: ASPIRIN 81 MG CHEWABLE TABLET FEED TUBE (08:47)
[2021-03-04] MEDS: PANTOPRAZOLE SODIUM IV 40 MG VIAL IV PUSH (08:47)
[2021-03-04] MEDS: DEXTROSE 5% 1,000 ML 1,000 ML 100 ML IV CONT (08:54)
[2021-03-04] MEDS: ENOXAPARIN 100 MG/ML SYRINGE 85 MG SUB-Q ×2 (08:54→20:50)
--- NOTE | 2021-03-04 09:07 | WPDINTPN ---
Progress Note: A&P Assessment and Plan (1) Cardiac arrest: Code(s): I46.9 - Cardiac arrest, cause unspecified Status: Acute Assessment and Plan: Patient was asystole and PEA arrest of unknown etiology, patient is on sotalol but there is no evidence of prolonged QT intervals, EKGs did not show any torsades of ventricular arrhythmias. According the ER physician's patient was down for about 25 minutes -no evidence of acute [place], -patient has a history of COPD but her ABGs did not show hypercapnia -CTA chest with no evidence of PE or dissection -hemodynamically stable -status post target temperature management I reviewed her records obtained from [facility] where patient was admitted in September of this year with ?cardiac arrest her echocardiogram had a similar findings at at that time the form of 60-65% EF aortic stenosis AI. Patient also had AFib and underwent ablation later in the course. Will discuss with Cardiology -echocardiogram 1. Complete two-dimensional, color flow and Doppler transthoracic echocardiogram is performed. 2. Strain analysis performed. 3. Left ventricular chamber dimension is normal. 4. Left ventricular systolic function is normal, estimated at 65-70%. 5. There is mildly increased left ventricular wall thickness. 6. The left ventricular diastolic function is normal. 7. Global longitudinal strain is normal at -22 %. 8. Left atrial chamber dimension is moderately enlarged. 9. There is moderate aortic valve stenosis with a peak velocity of 258 cm/s, mean gradient of 15 mmHg, and aortic valve area of 1.5 cm2. 10. There is moderate to severe aortic valve regurgitation. 11. There is moderate aortic valve calcification. 12. There is moderate mitral valve regurgitation. 13. There is mild tricuspid valve regurgitation. 14. Severe pulmonary hypertension, estimated pulmonary arterial systolic pressure is 60 mmHg. (2) Anoxic brain injury: Code(s): G93.1 - Anoxic brain damage, not elsewhere classified Status: Acute Assessment and Plan: - status post target temperature management -CT scan of the brain did not show any acute intracranial abnormality, chronic left parietal lobe infarction and chronic age-related findings -appreciate Neurology evaluation and recommendations - continue to hold propofol -EEG was done yesterday and report is pending (3) Myoclonic jerking: Code(s): G25.3 - Myoclonus Status: Acute Assessment and Plan: likely secondary to anoxic brain injury -patient has been started on Keppra, will continue and monitor -also on propofol (4) Acute respiratory failure with hypoxia: Code(s): J96.01 - Acute respiratory failure with hypoxia Status: Acute Assessment and Plan: Acute respiratory failure due to cardiac arrest, -intubated in the field on 03/01/2021 -on CMV mode of ventilation, peep of 5, and 30% FiO2 -chest x-ray and ABGs reviewed, -continue bronchodilators given history of COPD - her vent weaning will depend on her neurological improvement (5) Elevated LFTs: Code(s): R79.89 - Other specified abnormal findings of blood chemistry Status: Acute Assessment and Plan: Elevated LFTs likely related to cardiac arrest -will hydrate patient, -LFTs are improving (6) COPD (chronic obstructive pulmonary disease): Code(s): J44.9 - Chronic obstructive pulmonary disease, unspecified Status: Acute Assessment and Plan: Patient with history of COPD but does not appear in any exacerbation -patient on prednisone at home likely for COPD but unsure -continue bronchodilators, mechanical ventilation (7) Paroxysmal atrial fibrillation: Code(s): I48.0 - Paroxysmal atrial fibrillation Status: Acute Assessment and Plan: Patient currently in sinus rhythm, rate controlled, has been on Coumadin at home -her INR is subtherapeutic now hence pale start pa
--- NOTE | 2021-03-04 09:14 | WPDNEUROLOGY ---
Neurology EEG Report General Information Date of Study: 03/03/21 TEST eeg DIAGNOSIS anoxic encephalpathy CONDITION OF RECORDING 0n vent and sedated EEG NUMBER [id number] CLINICAL HISTORY comatose
--- NOTE | 2021-03-04 09:18 | WPDNEUROLOGY ---
Neurology EEG Report DIAGNOSIS Anoxic encephalopathy CONDITION OF RECORDING coma toes CLINICAL HISTORY patient is on vent and sedated subsequent to cardiac arrest at present patient is comatose EEG DESCRIPTION whole record consists of diffuse very low voltage 15 to 21 hertz per 2nd beta activity admixed with intermittent muscle artifacts and electrode artifacts. Photic stimulation not done. Hyperventilation obviously not done. Non paroxysmal. Nonfocal. Nonlateralizing. IMPRESSION Abnormal record due to the presence of diffuse low-voltage beta activity without any change throughout the tracing and also with no evidence of the seizure-like activity .clinical correlation recommended
--- NOTE | 2021-03-04 10:23 | PM.PNCARD ---
Progress Note: A&P Assessment and Plan (1) Cardiac arrest: Code(s): I46.9 - Cardiac arrest, cause unspecified Status: Acute Assessment and Plan: Patient had an asystolic and PDA arrest, no evidence of any torsade or ventricular arrhythmias at the time of the arrest or since then. No evidence of acute NE Takes sotalol, but No evidence of ventricular arrhythmias Has COPD but does not appear to have significant CO2 retention No evidence of PE Hemodynamically stable since admission. Continue supportive care. (2) Elevated troponin I level: Code(s): R77.8 - Other specified abnormalities of plasma proteins Status: Acute Assessment and Plan: Type 2 NE secondary to cardiac arrest. She did have some lateral ST depression on admission but apparently cardiac catheterization in September did not show any CAD. (3) Paroxysmal atrial fibrillation: Code(s): I48.0 - Paroxysmal atrial fibrillation Status: Acute Assessment and Plan: History of paroxysmal AFib and atrial flutter, taking sotalol, with a AFib ablation in August 2020 in [place]. Records have been requested Currently in sinus rhythm Potassium is being aggressively replaced (4) Chronic anticoagulation: Code(s): Z79.01 - intermediate accountant (current) use of anticoagulants Status: Acute Assessment and Plan: Therapeutically anticoagulated with warfarin. INR has drifted down. On enoxaparin at this point which is reasonable (5) Chronic kidney disease: Code(s): N18.9 - Chronic kidney disease, unspecified Status: Acute Assessment and Plan: Has stage IIIB kidney disease, presumably chronic. (6) COPD (chronic obstructive pulmonary disease): Code(s): J44.9 - Chronic obstructive pulmonary disease, unspecified Status: Acute Assessment and Plan: Apparently takes prednisone chronically at home. May need ongoing steroids. (7) Elevated LFTs: Code(s): R79.89 - Other specified abnormal findings of blood chemistry Status: Acute Assessment and Plan: Likely secondary to the cardiac arrest (8) Acute respiratory failure with hypoxia: Code(s): J96.01 - Acute respiratory failure with hypoxia Status: Acute Assessment and Plan: On ventilator, FiO2 60% (9) Myoclonic jerking: Code(s): G25.3 - Myoclonus Status: Acute Assessment and Plan: On Keppra. 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 Unfortunately no significant improvement. Likely significant anoxic injury has occurred. Reportedly Jamb Cutter to discuss further with family today Subjective Date/time seen: 03/04/21 10:23 Interval history: Reason for consult: Cardiac arrest, acute respiratory failure, myoclonic jerks, elevated LFTs Date of service 03/03/2021: Unfortunately, no significant or meaningful improvement to this point. Not responsive. Date of service 03/04/2021: No changes. Not responsive. No arrhythmia Review of Systems Review of Systems: ROS unobtainable: Yes unobtainable due to endotracheal tube, unobtainable due to medical condition and unobtainable due to mental status Cardiovascular: Cardiovascular: Reports syncope Neurologic: Reports syncope Exam Narrative: Well-groomed middle-aged female who is sedated and unresponsive, intubated. Const: General: no acute distress HENMT: Mouth: Yes moist mucous membranes Eyes: General: appearance normal, both eyes and all related structures Neck: Neck: supple Thyroid: thyroid normal Carotids: no bruits Resp: Effort & Inspection: normal respiratory effort Auscultation: clear to auscultation bilaterally Cardio: Rate: tachycardic Rhythm: regular rhythm Heart sounds: no murmurs and no rubs GI: Inspection: non-distended Other: Urostomy bag in place, healed midline scar Skin: General skin exam: normal color and no rashes or lesions noted Neuro: Cognition (Neuro): abnormal cognition
--- NOTE | 2021-03-04 11:36 | PCDIET ---
ICU Rounding Note: Patient tolerating Vital 1.2 at 40mL/hr. Recommended increase to 60mL/hr goal rate for 1584kcal, 99g protein and 1070mL free water over 22 hours/day now that Propofol has been discontinued. RN increasing water flushes to 100mL every 4 hours, as ordered. Last recorded weight is 85.5kg which is down from last review. -I/O. Bowel Motility: Last documented BM on 03/01/21 x 1. Labs Reviewed: WBC (12.1), RBC (3.49), Hgb (9.9), Hct (31.3), Glu (172), BUN (24), K (3.1), Na (150), Alb (3.0) Meds Noted: D5 at 100mL/hr, Albuterol, Solu Cortef, Atrovent, Keppra, Protonix, KCl Additional Notes: No documented pressure sores. Following daily in ICU rounds. Assessing/reassessing every Tuesday/Tuesday.
[2021-03-04 12:34] LABS: Glucose Point of Care 198 mg/dl (65-105)
[2021-03-04 17:56] LABS: Glucose Point of Care 190 mg/dl (65-105)
[2021-03-04 19:21] LABS: Anion Gap 8 mmol/L (8-16); Blood Urea Nitrogen 24 mg/dL (7-17); Calcium 8.4 mg/dL (8.4-10.2); Carbon Dioxide 23 mmol/L (22-30); Chloride 114 mmol/L (98-107); Estimated CRCL calculation 74 ml/min; Estimated Glomerular Filt Rate > 60; Glucose 227 mg/dL (65-110); Potassium 3.7 mmol/L (3.4-5.0); Sodium 145 mmol/L (137-145)
[2021-03-05] VITALS (29 sets, daily range): BP systolic 117–199; BP diastolic 64–106; PULSE 84–137; RESP 19–58; TEMP 36.8–38.1; O2SAT 93–98
[2021-03-05 00:11] LABS: Glucose Point of Care 178 mg/dl (65-105)
[2021-03-05] MEDS: PROPOFOL IV EMULSION 100 ML 17.06 MG IV CONT (02:20)
[2021-03-05] MEDS: ALBUTEROL SULFATE NEB 2.5 MG/0.5 ML INH INHALATION ×4 (02:25→20:49)
[2021-03-05] MEDS: IPRATROPIUM BR 0.02% INH SOLN 0.5 MG/2.5 ML VIAL INHALATION ×4 (02:25→20:49)
[2021-03-05 04:52] LABS: Base Excess ABG 1.2 mEq/l (+/-2.0); Carboxyhemoglobin 0.3 % THb (0-2.0); Fractional Inspired Oxygen 30 %; HCO3 ABG 24.2 mEq/l (22.0-26.0); Methemoglobin ABG 0.2 %THb (0-1.5); Oxygen Content ABG 15.3 %vol (16.0-22.0); Oxygen Saturation ABG 96.8 % (95.0-100.0); PCO2 ABG 33.1 mmHg (35.0-45.0); PO2 FiO2 Ratio Arterial Blood 2.73 %; Reduced Hemoglobin 4.5 %THb (0-5.0); Total Hemoglobin 11.4 g/dL (12.0-18.0); pH ABG 7.482 (7.350-7.450)
[2021-03-05 04:53] LABS: Device VENTILATOR; Modified Allen's Test Pass; Site Drawn LEFT RADIAL
[2021-03-05 04:54] LABS: Arterial Blood Gas PEEP 5 cmH2O; Arterial Blood Gas Tidal Volume 420 ml; Arterial Blood Gas Vent Mode CMV; Arterial Blood Gas Ventilator rate 18 /MIN
[2021-03-05 05:05] LABS: Hematocrit 31.5 % (37.0-47.0); Hemoglobin 10.2 g/dL (12.0-15.0); Mean Corpuscular HGB Conc 32.4 g/dl (32-36); Mean Corpuscular Hemoglobin 28.8 pg (26-34); Mean Platelet Volume 10.1 fl (7.4-10.4); Platelet Count Result 175 k/mm3 (150-375); Red Blood Count 3.54 M/mm3 (4.2-5.4); Red Cell Distribution Width 15.6 % (11.5-14.5); White Blood Count 13.5 K/mm3 (4.5-10.0)
[2021-03-05] MEDS: CENTRAL LINE FLUSH 10 ML IV PUSH ×3 (05:10→22:15)
[2021-03-05] MEDS: levETIRAcetam 500MG/NACL 100ML 500 MG/100 ML BAG 400 MG IVPB ×2 (05:10→17:44)
[2021-03-05] MEDS: HYDROCORTISONE SODIUM SUCCINATE 100 MG/2 ML VIAL 50 MG IV PUSH ×2 (05:10→17:44)
[2021-03-05 05:18] LABS: Alanine Aminotransferase 44 U/L (4-35); Albumin Level 3.2 g/dL (3.5-5.1); Alkaline Phosphatase 74 U/L (38-126); Anion Gap 4 mmol/L (8-16); Aspartate Amino Transferase 64 U/L (14-36); Bilirubin,Total 0.4 mg/dL (0.2-1.3); Blood Urea Nitrogen 27 mg/dL (7-17); Calcium 8.8 mg/dL (8.4-10.2); Carbon Dioxide 26 mmol/L (22-30); Chloride 116 mmol/L (98-107); Estimated CRCL calculation 66 ml/min; Estimated Glomerular Filt Rate > 60; Glucose 180 mg/dL (65-110); Phosphorus 2.2 mg/dL (2.5-4.5); Potassium 3.4 mmol/L (3.4-5.0); Sodium 146 mmol/L (137-145)
[2021-03-05] MEDS: POTASSIUM CHLORIDE 20 MEQ PACKET (FOR LIQUID) 40 MEQ PO (08:27)
[2021-03-05] MEDS: ASPIRIN 81 MG CHEWABLE TABLET FEED TUBE (08:27)
[2021-03-05] MEDS: ENOXAPARIN 100 MG/ML SYRINGE 85 MG SUB-Q ×2 (08:27→20:13)
[2021-03-05] MEDS: PANTOPRAZOLE SODIUM IV 40 MG VIAL IV PUSH (08:27)
--- NOTE | 2021-03-05 08:36 | WPDINTPN ---
Progress Note: A&P Assessment and Plan (1) Cardiac arrest: Code(s): I46.9 - Cardiac arrest, cause unspecified Status: Acute Assessment and Plan: Patient was asystole and PEA arrest of unknown etiology, patient is on sotalol but there is no evidence of prolonged QT intervals, EKGs did not show any torsades of ventricular arrhythmias. According the ER physician's patient was down for about 25 minutes -no evidence of acute SC, -patient has a history of COPD but her ABGs did not show hypercapnia -CTA chest with no evidence of PE or dissection -hemodynamically stable -status post target temperature management I reviewed her records obtained from [facility] where patient was admitted in September of this year with ?cardiac arrest her echocardiogram had a similar findings at at that time the form of 60-65% EF aortic stenosis AI and PH. Patient also had AFib and underwent ablation later in the course. Will discuss with Cardiology -echocardiogram 1. Complete two-dimensional, color flow and Doppler transthoracic echocardiogram is performed. 2. Strain analysis performed. 3. Left ventricular chamber dimension is normal. 4. Left ventricular systolic function is normal, estimated at 65-70%. 5. There is mildly increased left ventricular wall thickness. 6. The left ventricular diastolic function is normal. 7. Global longitudinal strain is normal at -22 %. 8. Left atrial chamber dimension is moderately enlarged. 9. There is moderate aortic valve stenosis with a peak velocity of 258 cm/s, mean gradient of 15 mmHg, and aortic valve area of 1.5 cm2. 10. There is moderate to severe aortic valve regurgitation. 11. There is moderate aortic valve calcification. 12. There is moderate mitral valve regurgitation. 13. There is mild tricuspid valve regurgitation. 14. Severe pulmonary hypertension, estimated pulmonary arterial systolic pressure is 60 mmHg. (2) Anoxic brain injury: Code(s): G93.1 - Anoxic brain damage, not elsewhere classified Status: Acute Assessment and Plan: - status post target temperature management -CT scan of the brain did not show any acute intracranial abnormality, chronic left parietal lobe infarction and chronic age-related findings -appreciate Neurology evaluation and recommendations - continue to hold propofol as much as possible -EEG 10/5 Abnormal record due to the presence of diffuse low-voltage beta activity without any change throughout the tracing and also with no evidence of the seizure-like activity .clinical correlation recommended Will repeat CT head today (3) Myoclonic jerking: Code(s): G25.3 - Myoclonus Status: Acute Assessment and Plan: likely secondary to anoxic brain injury -patient has been started on Keppra, will continue and monitor -also on propofol (4) Acute respiratory failure with hypoxia: Code(s): J96.01 - Acute respiratory failure with hypoxia Status: Acute Assessment and Plan: Acute respiratory failure due to cardiac arrest, -intubated in the field on 03/01/2021 -on CMV mode of ventilation, peep of 5, and 30% FiO2 -chest x-ray and ABGs reviewed, -continue bronchodilators given history of COPD - her vent weaning will depend on her neurological improvement (5) Elevated LFTs: Code(s): R79.89 - Other specified abnormal findings of blood chemistry Status: Acute Assessment and Plan: Elevated LFTs likely related to cardiac arrest -will hydrate patient, -LFTs are improving (6) COPD (chronic obstructive pulmonary disease): Code(s): J44.9 - Chronic obstructive pulmonary disease, unspecified Status: Acute Assessment and Plan: Patient with history of COPD but does not appear in any exacerbation -patient on prednisone at home likely for COPD but unsure -continue bronchodilators, mechanical ventilation (7) Paroxysmal atrial fibrillation: Code(s): I
[2021-03-05] MEDS: LABETALOL HCL INJ 100 MG/20 ML VIAL 20 MG IV PUSH ×2 (09:17→16:08)
--- NOTE | 2021-03-05 10:31 | PM.IMPN ---
Progress Note: A&P Additional Plan START OF DOCTOR BEBA?S PROGRESS NOTE Subjective: The patient is unresponsive and she is not being sedated Objective: General: -eyes open presumably awake but unresponsive -No acute distress -No dyspnea -No tachypnea Heart: -iRegular rate -Regular rhythm -No murmurs -No gallops -No rubs Lungs: -No wheeze -No rhonchi -No rales Abdomen: -Normal bowel sounds in all four quadrants -No rebound -No guarding -No tenderness Extremities: -2/4 pulse in all four extremities -No clubbing -No cyanosis -No edema Additional Details / Additional Findings / Exceptions / Miscellaneous: No response to noxious stimuli Pertinent Laboratory Results / Pertinent Radiology Results / Pertinent Diagnostic Results / Pertinent Vital Signs: Heart rate 102 beats per minute, blood pressure 174/100, white blood cell count 30.5, hemoglobin 10.2, sodium 146, phosphorus 2.2, AST 64, ALT 44 Assessment / Plan: Cardiopulmonary arrest with PEA noted. Patient status post intubation March 01, 2021. Turn q.2 hours. DuoNeb q.6 hours. Ventilator management per leather skinner Ventilator settings as of 10:30 a.m. March 05, 2021: CMV, rate 30, tidal volume 420, peep 5, FiO2 30% Query pneumonia History of bladder cancer, status post ileal conduit placement Proximal atrial fibrillation, status post cardiac ablation. Metoprolol 25 mg NG q.12 hours COPD. Hydrocortisone 50 mg IV q.12 hours Depression Hyperglycemia, likely due to stress reaction. Hemoglobin A1c within normal limits. Will check fingerstick glucose q.6 hours and provide insulin sliding scale Hypertriglyceridemia Rheumatoid arthritis. Hydrocortisone 50 mg IV q.12 hours Myoclonic jerks. Keppra 500 mg IV q.12 hours Moderate aortic aortic stenosis Moderate to severe aortic regurgitation Moderate mitral regurgitation Severe pulmonary hypertension Anemia. Monitor hemoglobin levels intermittently. Check serum ferritin, iron panel, fecal occult blood Acute renal deficiency. Will monitor creatinine intermittently Elevated troponin. Likely due to cardiopulmonary arrest. Aspirin 81 mg mg daily plus Lovenox 85 mg subcutaneously b.i.d. Marijuana use Transaminitis, likely sequelae of cardiopulmonary arrest. Will monitor LFTs periodically with CMP GI prophylaxis. Protonix 40 mg IV daily DVT prophylaxis. Lovenox 85 mg subcutaneously q.12 hours Disposition: Given the patient's current neurological status, prognosis appears poor END OF DOCTOR BEBA?S PROGRESS NOTE Subjective Date/time seen: 03/05/21 10:31 Objective Data Vital Signs Vital Signs: Vital Signs - 24 hr 03/04/21 11:28 03/04/21 12:00 03/04/21 12:39 Temperature 99.7 F H Pulse Rate 137 H 138 H 130 H Respiratory Rate 40 H 40 H Blood Pressure 175/85 H Pulse Oximetry 95 95 03/04/21 13:00 03/04/21 14:00 03/04/21 14:05 Temperature Pulse Rate 115 H 123 H Respiratory Rate 29 H 34 H Blood Pressure 143/76 H 122/68 Pulse Oximetry 94 03/04/21 14:16 03/04/21 14:29 03/04/21 16:00 Temperature 99.6 F Pulse Rate 119 H 107 H 117 H Respiratory Rate 31 H 26 H 28 H Blood Pressure 138/76 Pulse Oximetry 94 96 03/04/21 17:30 03/04/21 18:00 03/04/21 19:57 Temperature Pulse Rate 111 H 106 H 105 H Respiratory Rate 30 H 28 H Blood Pressure 149/83 H Pulse Oximetry 96 96 03/04/21 20:00 03/04/21 20:13 03/04/21 20:15 Temperature 99.1 F Pulse Rate 103 H 110 H 108 H Respiratory Rate 28 H 22 H Blood Pressure 134/74 Pulse Oximetry 96 94 03/04/21 20:18 03/04/21 22:00 03/04/21 22:43 Temperature Pulse Rate 108 H 105 H 107 H Respiratory Rate 19 27 H Blood Pressure 142/79 H Pulse Oximetry 99 98 03/05/21 00:00 03/05/21 02:00 03/05/21 02:20 Temperature 98.3 F Pulse Rate 106 H 106 H 110 H Respiratory Rate 30 H 29 H 32 H Blood Pressure 145/82 H 140/83 Pulse Oximetr
--- NOTE | 2021-03-05 10:37 | PCDIET ---
ICU Rounding Note: Patient tolerating Vital 1.2 at 60mL/hr with 200mL water flush every 4 hours. Residuals 180mL and below. Recommend phosphorus replacement, if medically appropriate. Last recorded weight is 88.3kg which is increased from last review. +I/O. Bowel Motility: Last documented BM on 03/01/21 x 1. Labs Reviewed: WBC (13.5), RBC (3.54), Hgb (10.2), Hct (31.5), Glu (180), BUN (27), Na (146), Alb (3.2), PO4 (2.2) Meds Noted: Albuterol, Solu Cortef, Atrovent, Normodyne, Keppra, Protonix, KCl Additional Notes: RN reports Propofol currently off. increased water flush from 100mL to 200mL every 4 hours. Sodium improved, but still elevated. No documented pressure sores. Following daily in ICU rounds. Assessing/reassessing every Tuesday/Tuesday.
--- NOTE | 2021-03-05 11:24 | PM.PNCARD ---
Progress Note: A&P Assessment and Plan (1) Cardiac arrest: Code(s): I46.9 - Cardiac arrest, cause unspecified Status: Acute Assessment and Plan: Patient had an asystolic and PDA arrest, no evidence of any torsade or ventricular arrhythmias at the time of the arrest or since then. No evidence of acute NV Takes sotalol, but No evidence of ventricular arrhythmias Has COPD but does not appear to have significant CO2 retention No evidence of PE Hemodynamically stable since admission. Continue supportive care. (2) Elevated troponin I level: Code(s): R77.8 - Other specified abnormalities of plasma proteins Status: Acute Assessment and Plan: Type 2 NV secondary to cardiac arrest. She did have some lateral ST depression on admission but apparently cardiac catheterization in September did not show any CAD. No changes today (3) Paroxysmal atrial fibrillation: Code(s): I48.0 - Paroxysmal atrial fibrillation Status: Acute Assessment and Plan: History of paroxysmal AFib and atrial flutter, taking sotalol, with a AFib ablation in August 2020 in [place]. Records have been requested Currently in sinus rhythm Potassium is being aggressively replaced (4) Chronic anticoagulation: Code(s): Z79.01 - skilled nursing (current) use of anticoagulants Status: Acute Assessment and Plan: Therapeutically anticoagulated with warfarin. INR has drifted down. On enoxaparin at this point which is reasonable (5) Chronic kidney disease: Code(s): N18.9 - Chronic kidney disease, unspecified Status: Acute Assessment and Plan: Has stage IIIB kidney disease, presumably chronic. (6) COPD (chronic obstructive pulmonary disease): Code(s): J44.9 - Chronic obstructive pulmonary disease, unspecified Status: Acute Assessment and Plan: Apparently takes prednisone chronically at home. May need ongoing steroids. (7) Elevated LFTs: Code(s): R79.89 - Other specified abnormal findings of blood chemistry Status: Acute Assessment and Plan: Likely secondary to the cardiac arrest (8) Acute respiratory failure with hypoxia: Code(s): J96.01 - Acute respiratory failure with hypoxia Status: Acute Assessment and Plan: On ventilator, FiO2 60% (9) Myoclonic jerking: Code(s): G25.3 - Myoclonus Status: Acute Assessment and Plan: On Keppra. 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 Unfortunately no significant improvement. Likely significant anoxic injury has occurred. Reportedly Salesperson Books to discuss further with family today Subjective Date/time seen: 03/05/21 11:24 Interval history: Reason for consult: Cardiac arrest, acute respiratory failure, myoclonic jerks, elevated LFTs Date of service 03/03/2021: Unfortunately, no significant or meaningful improvement to this point. Not responsive. Date of service 03/04/2021: No changes. Not responsive. No arrhythmia Date of service 03/05/2021: Still not responsive. Heart rate and blood pressure will increase with reduction of sedation. Review of Systems Review of Systems: ROS unobtainable: Yes unobtainable due to endotracheal tube, unobtainable due to medical condition and unobtainable due to mental status Cardiovascular: Cardiovascular: Reports syncope Neurologic: Reports syncope Exam Narrative: Well-groomed middle-aged female who is sedated and unresponsive, intubated. Const: General: no acute distress HENMT: Mouth: Yes moist mucous membranes Eyes: General: appearance normal, both eyes and all related structures Neck: Neck: supple Thyroid: thyroid normal Resp: Effort & Inspection: normal respiratory effort Auscultation: clear to auscultation bilaterally Cardio: Rate: tachycardic Rhythm: regular rhythm Heart sounds: no murmurs and no rubs GI: Inspection: non-distended Other: Urostomy bag in place, healed midline
[2021-03-05 11:31] LABS: Iron 41 ug/dL (37-170)
[2021-03-05 11:40] LABS: Percent Iron Saturation 13 % (20-50)
[2021-03-05 12:39] LABS: Glucose Point of Care 170 mg/dl (65-105)
[2021-03-05] MEDS: PROPOFOL IV EMULSION 100 ML 11.38 MG IV CONT (16:37)
[2021-03-05 17:52] LABS: Glucose Point of Care 185 mg/dl (65-105)
[2021-03-05] MEDS: MINERAL OIL/WHITE PETROLATUM OINTMENT 1 APPLIC EACH EYE (20:13)
[2021-03-05] MEDS: ARTIFICIAL TEARS OPHTH SOLN 15 ML BOTTLE 1 DROP EACH EYE (20:13)
[2021-03-05] MEDS: METOPROLOL TARTRATE 25 MG TABLET PO (20:13)
[2021-03-06] VITALS (27 sets, daily range): BP systolic 112–182; BP diastolic 62–95; PULSE 83–123; RESP 18–36; TEMP 36.6–39.6; O2SAT 90–96
[2021-03-06] MEDS: PROPOFOL IV EMULSION 100 ML 10.6 MG IV CONT (00:17)
[2021-03-06 01:47] LABS: Glucose Point of Care 182 mg/dl (65-105)
[2021-03-06 04:27] LABS: Alveolar/Arterial O2 Gradient 107.8 mmHg; Base Excess ABG 0.3 mEq/l (+/-2.0); Fractional Inspired Oxygen 30 %; HCO3 ABG 22.4 mEq/l (22.0-26.0); Oxygen Content ABG 14.7 %vol (16.0-22.0); Oxygen Saturation ABG 96.1 % (95.0-100.0); Oxyhemoglobin 93.2 % THb (90.0-100.0); PCO2 ABG 28.4 mmHg (35.0-45.0); PO2 ABG 72.7 mmHg (80.0-100.0); PO2 FiO2 Ratio Arterial Blood 2.42 %; Total Hemoglobin 11.2 g/dL (12.0-18.0)
[2021-03-06 04:29] LABS: Device VENTILATOR; Modified Allen's Test Pass; Site Drawn LEFT RADIAL; pH ABG 7.515 (7.350-7.450)
[2021-03-06 04:30] LABS: Arterial Blood Gas PEEP 5 cmH2O; Arterial Blood Gas Tidal Volume 420 ml; Arterial Blood Gas Vent Mode CMV; Arterial Blood Gas Ventilator rate 18 /MIN
[2021-03-06] MEDS: HYDROCORTISONE SODIUM SUCCINATE 100 MG/2 ML VIAL 50 MG IV PUSH ×2 (05:57→18:14)
[2021-03-06] MEDS: levETIRAcetam 500MG/NACL 100ML 500 MG/100 ML BAG 400 MG IVPB ×2 (05:57→18:17)
[2021-03-06] MEDS: CENTRAL LINE FLUSH 10 ML IV PUSH ×3 (05:58→20:11)
[2021-03-06 06:19] LABS: Hematocrit 31.7 % (37.0-47.0); Hemoglobin 10.1 g/dL (12.0-15.0); Mean Corpuscular HGB Conc 31.9 g/dl (32-36); Mean Corpuscular Hemoglobin 28.5 pg (26-34); Mean Corpuscular Volume 89.5 fl (80-100); Mean Platelet Volume 10.3 fl (7.4-10.4); Platelet Count Result 178 k/mm3 (150-375); Red Blood Count 3.54 M/mm3 (4.2-5.4); Red Cell Distribution Width 15.7 % (11.5-14.5); White Blood Count 12.5 K/mm3 (4.5-10.0)
[2021-03-06 06:35] LABS: Alanine Aminotransferase 37 U/L (4-35); Albumin Level 3.1 g/dL (3.5-5.1); Alkaline Phosphatase 66 U/L (38-126); Anion Gap 6 mmol/L (8-16); Aspartate Amino Transferase 57 U/L (14-36); Bilirubin,Total 0.4 mg/dL (0.2-1.3); Blood Urea Nitrogen 34 mg/dL (7-17); Carbon Dioxide 27 mmol/L (22-30); Chloride 115 mmol/L (98-107); Estimated CRCL calculation 67 ml/min; Estimated Glomerular Filt Rate > 60; Glucose 169 mg/dL (65-110); Magnesium 2.1 mg/dL (1.6-2.3); Phosphorus 2.6 mg/dL (2.5-4.5); Potassium 3.3 mmol/L (3.4-5.0); Sodium 148 mmol/L (137-145)
[2021-03-06 06:41] LABS: Prothrombin Time 13.2 Seconds (11.1-14.7)
--- NOTE | 2021-03-06 08:12 | PC.NURSE ---
updated Daughter Delfina Light on patient being very critical. Daughter called confused about her mother being on life support , RN explained again that she has been on the ventilator at FIO2 100% like I told her last night and requiring even more blood pressure support medicine. RN readdressed code status and daughter still wants her to be full code.
[2021-03-06] MEDS: IPRATROPIUM BR 0.02% INH SOLN 0.5 MG/2.5 ML VIAL INHALATION ×3 (08:15→20:36)
[2021-03-06] MEDS: ALBUTEROL SULFATE NEB 2.5 MG/0.5 ML INH INHALATION ×3 (08:15→20:36)
[2021-03-06] MEDS: POTASSIUM CHLORIDE 20 MEQ PACKET (FOR LIQUID) 40 MEQ FEED TUBE (08:41)
[2021-03-06] MEDS: ENOXAPARIN 100 MG/ML SYRINGE 85 MG SUB-Q ×2 (08:42→20:08)
[2021-03-06] MEDS: METOPROLOL TARTRATE 25 MG TABLET PO ×2 (08:42→20:09)
[2021-03-06] MEDS: ASPIRIN 81 MG CHEWABLE TABLET FEED TUBE (08:42)
[2021-03-06] MEDS: ARTIFICIAL TEARS OPHTH SOLN 15 ML BOTTLE 1 DROP EACH EYE ×2 (08:43→20:09)
[2021-03-06] MEDS: PANTOPRAZOLE SODIUM IV 40 MG VIAL IV PUSH (08:43)
[2021-03-06] MEDS: MINERAL OIL/WHITE PETROLATUM OINTMENT 1 APPLIC EACH EYE ×2 (08:46→20:08)
[2021-03-06] MEDS: AMOXICILLIN/CLAVULANATE K 875-125 MG TAB 1 TABLET PO ×2 (08:50→20:10)
--- NOTE | 2021-03-06 09:43 | WPDINTPN ---
Progress Note: A&P Assessment and Plan (1) Cardiac arrest: Code(s): I46.9 - Cardiac arrest, cause unspecified Status: Acute Assessment and Plan: Patient was asystole and PEA arrest of unknown etiology, patient is on sotalol but there is no evidence of prolonged QT intervals, EKGs did not show any torsades of ventricular arrhythmias. According the ER physician's patient was down for about 25 minutes -no evidence of acute MO, -patient has a history of COPD but her ABGs did not show hypercapnia -CTA chest with no evidence of PE or dissection -hemodynamically stable -status post target temperature management I reviewed her records obtained from [facility] where patient was admitted in September of this year with ?cardiac arrest her echocardiogram had a similar findings at at that time the form of 60-65% EF aortic stenosis AI and PH. Patient also had AFib and underwent ablation later in the course. Will discuss with Cardiology -echocardiogram 1. Complete two-dimensional, color flow and Doppler transthoracic echocardiogram is performed. 2. Strain analysis performed. 3. Left ventricular chamber dimension is normal. 4. Left ventricular systolic function is normal, estimated at 65-70%. 5. There is mildly increased left ventricular wall thickness. 6. The left ventricular diastolic function is normal. 7. Global longitudinal strain is normal at -22 %. 8. Left atrial chamber dimension is moderately enlarged. 9. There is moderate aortic valve stenosis with a peak velocity of 258 cm/s, mean gradient of 15 mmHg, and aortic valve area of 1.5 cm2. 10. There is moderate to severe aortic valve regurgitation. 11. There is moderate aortic valve calcification. 12. There is moderate mitral valve regurgitation. 13. There is mild tricuspid valve regurgitation. 14. Severe pulmonary hypertension, estimated pulmonary arterial systolic pressure is 60 mmHg. (2) Anoxic brain injury: Code(s): G93.1 - Anoxic brain damage, not elsewhere classified Status: Acute Assessment and Plan: - status post target temperature management -CT scan of the brain did not show any acute intracranial abnormality, chronic left parietal lobe infarction and chronic age-related findings -appreciate Neurology evaluation and recommendations - continue to hold propofol as much as possible -EEG 03/03 Abnormal record due to the presence of diffuse low-voltage beta activity without any change throughout the tracing and also with no evidence of the seizure-like activity .clinical correlation recommended Repeat head CT 10/7 showed sinusitis and no other change (3) Myoclonic jerking: Code(s): G25.3 - Myoclonus Status: Acute Assessment and Plan: likely secondary to anoxic brain injury -patient has been started on Keppra, will continue and monitor -also on propofol (4) Acute respiratory failure with hypoxia: Code(s): J96.01 - Acute respiratory failure with hypoxia Status: Acute Assessment and Plan: Acute respiratory failure due to cardiac arrest, -intubated in the field on 03/01/2021 -on CMV mode of ventilation, peep of 5, and 30% FiO2 -chest x-ray and ABGs reviewed, -continue bronchodilators given history of COPD - her vent weaning will depend on her neurological improvement (5) Elevated LFTs: Code(s): R79.89 - Other specified abnormal findings of blood chemistry Status: Acute Assessment and Plan: Elevated LFTs likely related to cardiac arrest -will hydrate patient, -LFTs are improving (6) COPD (chronic obstructive pulmonary disease): Code(s): J44.9 - Chronic obstructive pulmonary disease, unspecified Status: Acute Assessment and Plan: Patient with history of COPD but does not appear in any exacerbation -patient on prednisone at home likely for COPD but unsure -continue bronchodilators, mechanical ventilation (7) Paroxysmal atrial
--- NOTE | 2021-03-06 09:55 | PM.PNCARD ---
Progress Note: A&P Assessment and Plan (1) Cardiac arrest: Code(s): I46.9 - Cardiac arrest, cause unspecified Status: Acute Assessment and Plan: Patient had an asystolic and PDA arrest, no evidence of any torsade or ventricular arrhythmias at the time of the arrest or since then. No evidence of acute IL Takes sotalol, but No evidence of ventricular arrhythmias Has COPD but does not appear to have significant CO2 retention No evidence of PE Hemodynamically stable since admission. Continue supportive care. (2) Elevated troponin I level: Code(s): R77.8 - Other specified abnormalities of plasma proteins Status: Acute Assessment and Plan: Type 2 IL secondary to cardiac arrest. She did have some lateral ST depression on admission but apparently cardiac catheterization in September did not show any CAD. No changes today (3) Paroxysmal atrial fibrillation: Code(s): I48.0 - Paroxysmal atrial fibrillation Status: Acute Assessment and Plan: History of paroxysmal AFib and atrial flutter, taking sotalol, with a AFib ablation in August 2020 in [place]. Records have been requested Currently in sinus rhythm Potassium is being aggressively replaced (4) Chronic anticoagulation: Code(s): Z79.01 - senior care (current) use of anticoagulants Status: Acute Assessment and Plan: Therapeutically anticoagulated with warfarin. INR has drifted down. On enoxaparin at this point which is reasonable (5) Chronic kidney disease: Code(s): N18.9 - Chronic kidney disease, unspecified Status: Acute Assessment and Plan: Has stage IIIB kidney disease, presumably chronic. (6) COPD (chronic obstructive pulmonary disease): Code(s): J44.9 - Chronic obstructive pulmonary disease, unspecified Status: Acute Assessment and Plan: Apparently takes prednisone chronically at home. May need ongoing steroids. (7) Elevated LFTs: Code(s): R79.89 - Other specified abnormal findings of blood chemistry Status: Acute Assessment and Plan: Likely secondary to the cardiac arrest (8) Acute respiratory failure with hypoxia: Code(s): J96.01 - Acute respiratory failure with hypoxia Status: Acute Assessment and Plan: On ventilator, FiO2 60% (9) Myoclonic jerking: Code(s): G25.3 - Myoclonus Status: Acute Assessment and Plan: On Keppra. 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 Unfortunately no significant improvement. Likely significant anoxic injury has occurred. Family wants to continue with full support. Subjective Date/time seen: 03/06/21 09:55 Interval history: Reason for consult: Cardiac arrest, acute respiratory failure, myoclonic jerks, elevated LFTs Date of service 03/03/2021: Unfortunately, no significant or meaningful improvement to this point. Not responsive. Date of service 03/04/2021: No changes. Not responsive. No arrhythmia Date of service 03/05/2021: Still not responsive. Heart rate and blood pressure will increase with reduction of sedation. Date of service 03/06/2021: No significant changes. Remains intubated and sedated. Review of Systems Review of Systems: ROS unobtainable: Yes unobtainable due to endotracheal tube, unobtainable due to medical condition and unobtainable due to mental status Exam Narrative: middle-aged female who is sedated and unresponsive, intubated. Const: General: no acute distress HENMT: Mouth: Yes moist mucous membranes Eyes: General: appearance normal, both eyes and all related structures Neck: Neck: supple Thyroid: thyroid normal Carotids: no bruits Lymphatic: lymphadenopathy not noted Resp: Effort & Inspection: normal respiratory effort Auscultation: rhonchi Cardio: Rate: tachycardic Rhythm: regular rhythm Heart sounds: no murmurs and no rubs GI: Inspection: non-distended Other: Urostomy bag in place, healed
[2021-03-06 10:23] LABS: Creatinine Urine 32.6 mg/dL
[2021-03-06 10:28] LABS: Sodium Urine Random 76 meq/L
--- NOTE | 2021-03-06 11:39 | PCDIET ---
Nutrition Follow-Up Complete: Nutrition Diagnosis: Inadequate oral intake related to oral intubation as evidenced by NPO status. Nutrition Goal: Patient to meet estimated nutritional needs. Goal in progress. Patient tolerating Vital 1.2 at 60mL/hr goal rate, per RN. Residuals documented as 290mL and below. Water flush of 200mL every 4 hours continues. Last recorded weight is 87.4 kg which is down from last review. Bowel Motility: Last documented BM on 03/01/21. Recommend adding medication to promote BM, if medically appropriate. Labs Reviewed: WBC (12.5), RBC (3.54), Hgb (10.1), Hct (31.7), BUN (34), K (3.3), Na (148), Alb (3.1) Meds Noted: Albuterol, Augmentin, Solu Cortef, Atrovent, Keppra, Lopressor, Protonix, KCl Additional Notes: No documented skin breakdown. Will continue to monitor with same goal. Nutrition Monitoring and Evaluation: Follow up every Tuesday/Tuesday.
[2021-03-06 12:06] LABS: Glucose Point of Care 198 mg/dl (65-105)
[2021-03-06 18:17] LABS: Glucose Point of Care 163 mg/dl (65-105)
[2021-03-07] VITALS (27 sets, daily range): BP systolic 119–155; BP diastolic 74–92; PULSE 95–132; RESP 20–36; TEMP 37.1–39.5; O2SAT 93–100
[2021-03-07] MEDS: ALBUTEROL SULFATE NEB 2.5 MG/0.5 ML INH INHALATION ×4 (01:30→20:23)
[2021-03-07] MEDS: IPRATROPIUM BR 0.02% INH SOLN 0.5 MG/2.5 ML VIAL INHALATION ×4 (01:31→20:23)
[2021-03-07 05:29] LABS: Hematocrit 33.5 % (37.0-47.0); Hemoglobin 10.4 g/dL (12.0-15.0); Mean Corpuscular Hemoglobin 27.7 pg (26-34); Mean Corpuscular Volume 89.3 fl (80-100); Mean Platelet Volume 10.3 fl (7.4-10.4); Platelet Count Result 200 k/mm3 (150-375); Red Blood Count 3.75 M/mm3 (4.2-5.4); Red Cell Distribution Width 16.1 % (11.5-14.5); White Blood Count 18.7 K/mm3 (4.5-10.0)
[2021-03-07 05:31] LABS: Alveolar/Arterial O2 Gradient 107.7 mmHg; Carboxyhemoglobin 0.1 % THb (0-2.0); Fractional Inspired Oxygen 30 %; HCO3 ABG 20.6 mEq/l (22.0-26.0); Methemoglobin ABG 0.3 %THb (0-1.5); Oxygen Content ABG 15.4 %vol (16.0-22.0); Oxygen Saturation ABG 96.6 % (95.0-100.0); Oxyhemoglobin 94.2 % THb (90.0-100.0); PCO2 ABG 25.8 mmHg (35.0-45.0); PO2 ABG 75.9 mmHg (80.0-100.0); PO2 FiO2 Ratio Arterial Blood 2.53 %; Reduced Hemoglobin 5.4 %THb (0-5.0); Total Hemoglobin 11.6 g/dL (12.0-18.0)
[2021-03-07 05:32] LABS: pH ABG 7.521 (7.350-7.450)
[2021-03-07 05:33] LABS: Arterial Blood Gas PEEP 5 cmH2O; Arterial Blood Gas Vent Mode CMV; Arterial Blood Gas Ventilator rate 18 /MIN; Device VENTILATOR; Modified Allen's Test Pass; Site Drawn LEFT RADIAL
[2021-03-07 05:34] LABS: Arterial Blood Gas Tidal Volume 380 ml
[2021-03-07 05:48] LABS: Anion Gap 6 mmol/L (8-16); Blood Urea Nitrogen 38 mg/dL (7-17); Carbon Dioxide 26 mmol/L (22-30); Chloride 113 mmol/L (98-107); Potassium 3.7 mmol/L (3.4-5.0); Sodium 145 mmol/L (137-145)
[2021-03-07 05:49] LABS: Alanine Aminotransferase 47 U/L (4-35); Albumin Level 3.2 g/dL (3.5-5.1); Alkaline Phosphatase 65 U/L (38-126); Aspartate Amino Transferase 60 U/L (14-36); Bilirubin,Total 0.4 mg/dL (0.2-1.3); Calcium 8.9 mg/dL (8.4-10.2); Estimated CRCL calculation 60 ml/min; Estimated Glomerular Filt Rate 56; Glucose 225 mg/dL (65-110)
[2021-03-07] MEDS: HYDROCORTISONE SODIUM SUCCINATE 100 MG/2 ML VIAL 50 MG IV PUSH ×2 (05:56→18:12)
[2021-03-07] MEDS: CENTRAL LINE FLUSH 10 ML IV PUSH ×3 (05:57→20:16)
[2021-03-07] MEDS: levETIRAcetam 500MG/NACL 100ML 500 MG/100 ML BAG 400 MG IVPB ×2 (06:00→18:14)
[2021-03-07 06:12] LABS: Glucose Point of Care 187 mg/dl (65-105)
[2021-03-07] MEDS: PANTOPRAZOLE SODIUM IV 40 MG VIAL IV PUSH (09:16)
[2021-03-07] MEDS: ARTIFICIAL TEARS OPHTH SOLN 15 ML BOTTLE 1 DROP EACH EYE ×2 (09:16→20:16)
[2021-03-07] MEDS: METOPROLOL TARTRATE 25 MG TABLET PO ×2 (09:16→20:16)
[2021-03-07] MEDS: MINERAL OIL/WHITE PETROLATUM OINTMENT 1 APPLIC EACH EYE ×2 (09:16→20:16)
[2021-03-07] MEDS: AMOXICILLIN/CLAVULANATE K 875-125 MG TAB 1 TABLET PO (09:16)
--- NOTE | 2021-03-07 09:38 | WPDINTPN ---
Progress Note: A&P Assessment and Plan (1) Cardiac arrest: Code(s): I46.9 - Cardiac arrest, cause unspecified Status: Acute Assessment and Plan: Patient was asystole and PEA arrest of unknown etiology, patient is on sotalol but there is no evidence of prolonged QT intervals, EKGs did not show any torsades of ventricular arrhythmias. According the ER physician's patient was down for about 25 minutes -no evidence of acute MA, -patient has a history of COPD but her ABGs did not show hypercapnia -CTA chest with no evidence of PE or dissection -hemodynamically stable -status post target temperature management I reviewed her records obtained from [facility] where patient was admitted in September of this year with ?cardiac arrest her echocardiogram had a similar findings at at that time the form of 60-65% EF aortic stenosis AI and PH. Patient also had AFib and underwent ablation later in the course. Will discuss with Cardiology -echocardiogram 1. Complete two-dimensional, color flow and Doppler transthoracic echocardiogram is performed. 2. Strain analysis performed. 3. Left ventricular chamber dimension is normal. 4. Left ventricular systolic function is normal, estimated at 65-70%. 5. There is mildly increased left ventricular wall thickness. 6. The left ventricular diastolic function is normal. 7. Global longitudinal strain is normal at -22 %. 8. Left atrial chamber dimension is moderately enlarged. 9. There is moderate aortic valve stenosis with a peak velocity of 258 cm/s, mean gradient of 15 mmHg, and aortic valve area of 1.5 cm2. 10. There is moderate to severe aortic valve regurgitation. 11. There is moderate aortic valve calcification. 12. There is moderate mitral valve regurgitation. 13. There is mild tricuspid valve regurgitation. 14. Severe pulmonary hypertension, estimated pulmonary arterial systolic pressure is 60 mmHg. (2) Anoxic brain injury: Code(s): G93.1 - Anoxic brain damage, not elsewhere classified Status: Acute Assessment and Plan: - status post target temperature management -CT scan of the brain did not show any acute intracranial abnormality, chronic left parietal lobe infarction and chronic age-related findings -appreciate Neurology evaluation and recommendations - continue to hold propofol as much as possible -EEG 03/03 Abnormal record due to the presence of diffuse low-voltage beta activity without any change throughout the tracing and also with no evidence of the seizure-like activity .clinical correlation recommended Repeat head CT 10/7 showed sinusitis and no other change (3) Myoclonic jerking: Code(s): G25.3 - Myoclonus Status: Acute Assessment and Plan: likely secondary to anoxic brain injury -patient has been started on Keppra, will continue and monitor -also on propofol (4) Acute respiratory failure with hypoxia: Code(s): J96.01 - Acute respiratory failure with hypoxia Status: Acute Assessment and Plan: Acute respiratory failure due to cardiac arrest, -intubated in the field on 03/01/2021 -on CMV mode of ventilation, peep of 5, and 30% FiO2 -chest x-ray and ABGs reviewed, -continue bronchodilators given history of COPD - her vent weaning will depend on her neurological improvement (5) Sinusitis: Code(s): J32.9 - Chronic sinusitis, unspecified Status: Acute Assessment and Plan: Yesterday patient had small amount of purulent discharge coming from nose trial and also has sinusitis on CT scan She does not have NG but has OG and endotracheal tube White count has increased and patient is now afebrile Switched to IV Zosyn Repeat blood and sputum cultures Change Galo I do not see any significant infiltrate on the chest x-ray to suggest pneumonia at this time (6) Elevated LFTs: Code(s): R79.89 - Other specified abnormal findings of blood chemistry Statu
--- NOTE | 2021-03-07 10:45 | PM.IMPN ---
Progress Note: A&P Additional Plan START OF DOCTOR BEBA?S PROGRESS NOTE Subjective: The patient is intubated and unresponsive. She is not sedated Objective: General: -unresponsive -No acute distress -No dyspnea -No tachypnea Heart: -iRegular rate -Regular rhythm -No murmurs -No gallops -No rubs Lungs: -No wheeze -No rhonchi -No rales Abdomen: -Normal bowel sounds in all four quadrants -No rebound -No guarding -No tenderness Extremities: -2/4 pulse in all four extremities -No clubbing -No cyanosis -No edema Additional Details / Additional Findings / Exceptions / Miscellaneous: Pertinent Laboratory Results / Pertinent Radiology Results / Pertinent Diagnostic Results / Pertinent Vital Signs: Heart rate 103 beats per minute, respiration 22, white blood count 18.7, hemoglobin 10.4, AST 60, ALT 47 Assessment / Plan: Cardiopulmonary arrest with PE 8 noted in the field. Patient status post intubation March 01, 2021. Turn q.2 hours. Ventilator management as per door captain. Current ventilator settings as of 10:45 a.m. on March 07, 2021: CMV, rate 23, tidal volume 380, peep 5, FiO2 30% Anoxic brain injury. I will follow up on neurology's final recommendations. Keppra 500 mg IV q.12 hours for myoclonic jerks. 03/04/2021: EEG: Abnormal record due to the presence of diffuse low-voltage beta activity without any change throughout the tracing and also with no evidence of the seizure-like activity .clinical correlation recommended Pneumonia. DuoNeb q.6 hours plus Zosyn 3.375 g IV q.6 hours Sinusitis. Zosyn 3.375 g IV q.6 hours History of bladder cancer, status post ileal conduit placement Paroxysmal atrial fibrillation, status post cardiac ablation. Lovenox 85 mg subcutaneously q.12 hours plus metoprolol 25 mg NG q.12 hours COPD Depression Hyperglycemia, likely due to stress reaction and/or hydrocortisone therapy. Will check fingerstick glucose q.6 hours and provide insulin sliding scale Hypertriglyceridemia Rheumatoid arthritis. Hydrocortisone 50 mg IV q.12 hours Moderate aortic stenosis Moderate to severe aortic regurgitation Moderate mitral regurgitation Severe pulmonary hypertension Anemia with borderline iron deficiency. Will monitor hemoglobin intermittently Acute renal insufficiency resolved Marijuana use Transaminitis. Will monitor LFTs periodically with CMP GI prophylaxis. Protonix 40 mg IV daily DVT prophylaxis. Lovenox 85 mg subcutaneously q.12 hours Disposition: END OF DOCTOR [facility]?S PROGRESS NOTE Subjective Date/time seen: 03/07/21 10:45 Objective Data Vital Signs Vital Signs: Vital Signs - 24 hr 03/06/21 11:38 03/06/21 12:00 03/06/21 14:00 Temperature 100.6 F H Pulse Rate 103 H 103 H 112 H Respiratory Rate 33 H 36 H Blood Pressure 161/82 H 182/95 H Pulse Oximetry 94 93 92 03/06/21 14:43 03/06/21 16:00 03/06/21 16:46 Temperature 99.6 F Pulse Rate 115 H 114 H 117 H Respiratory Rate 26 H 33 H Blood Pressure 149/84 H Pulse Oximetry 92 93 93 03/06/21 18:00 03/06/21 20:00 03/06/21 20:09 Temperature 100.8 F H 103.2 F H Pulse Rate 120 H 121 H 123 H Respiratory Rate 30 H 30 H Blood Pressure 145/84 H 148/90 H Pulse Oximetry 92 92 03/06/21 20:39 03/06/21 21:00 03/06/21 21:30 Temperature 103.2 F H 103.2 F H Pulse Rate 123 H Respiratory Rate Blood Pressure Pulse Oximetry 92 03/06/21 22:00 03/06/21 23:36 03/07/21 00:00 Temperature 102.6 F H 102.1 F H Pulse Rate 112 H 107 H 108 H Respiratory Rate 24 H 25 H Blood Pressure 133/77 133/78 Pulse Oximetry 93 95 96 03/07/21 01:35 03/07/21 02:00 03/07/21 04:00 Temperature 102.0 F H 100.5 F H Pulse Rate 111 H 111 H 110 H Respiratory Rate 28 H 25 H Blood Pressure 150/92 H 155/87 H Pulse Oximetry 95 95 94 03/07/21 05:12 03/07/21 06:00 03/07/21 08:00 Temperature 100.6 F H 100.4 F H Pulse R
--- NOTE | 2021-03-07 10:47 | WPDCN ---
Assessment and Plan Assessment and plan (1) Epistaxis: Code(s): R04.0 - Epistaxis Status: Acute Assessment and Plan: Blateral right worse than left epistaxis in this patient with PEA and now anoxic brain injury. Placed a right rhinorocket. She has what may be nasal polyps (potential source for bleeding) but this may also be significant edema of the nasal mucosa. Recommend 3 days to leave the rhinorocket in. Will defer to primary team on use of anticoagulants as epistaxis is not as severe as cardiac risk factors although any holding of blood thinners will help prevent further epistaxis. Can call me to remove the packs on Tuesday unless staff here is comfortable removing on their own at that time. Discussed with nurse taking care of her today. HPI Data of Consult Date/Time: 03/07/21 10:47 Requesting Physician: Charla Burden MD Primary Care Provider: PHYSICIAN NOT ON STAFF Consult Narrative Reason for consult: epistaxis Narrative: Mariam Lombardo is a 60 year old female with CVA, presented in PEA and has been hospitalized for nearly a week and was on ASA and lovenox but started developing epistaxis over last 24 hours prompting ENT referral. Appears to be bilateral. Anticoagulants have been held. She has anoxic brain injury, currently on tube feeds, ventilator, off sedation, not currently responsive. Intact gag reflex. Review of Systems Review of Systems: ROS unobtainable: Yes unobtainable due to endotracheal tube and unobtainable due to mental status PMFSH Past Medical History Medical History Atrial fibrillation Bladder cancer Chronic anticoagulation Paroxysmal atrial fibrillation Surgical History Surgical History H/O cardiac radiofrequency ablation H/O total cystectomy History of ileal conduit Family History Family History Mother COPD (chronic obstructive pulmonary disease) Father Leukemia Sibling Atrial fibrillation Social History Social History Social History: History of tobacco abuse Smoking packs per day: 1 Smoking cigarettes per day: 20.0 Years smoked: 30 Smoking pack-years: 30.00 Smoking status: Former smoker Tobacco type: cigarettes Smoking end date: 11/27/20 Alcohol intake: current Drinks per week: 3 Substance use: current Substance use type: marijuana Last use: 02/28/21 Spiritual care concerns: No Meds Home Medications and Allergies Home Medications Medication Instructions Recorded Confirmed Type furosemide 20 mg PO DAILY 03/01/21 03/01/21 History prednisone 5 mg PO DAILY 03/01/21 03/01/21 History sotalol 120 mg PO BID 03/01/21 03/01/21 History umeclidinium-vilanterol [Anoro 1 inh INHALATION DAILY 03/01/21 03/01/21 History Ellipta] venlafaxine 75 mg PO DAILY 03/01/21 03/01/21 History warfarin 5 mg PO DAILY 03/01/21 03/01/21 History Allergies Allergy/AdvReac Type Severity Reaction Status Date / Time tetracycline Allergy Intermediate HIVES Verified 07/02/11 15:59 ADHESIVES Allergy Unknown SKIN Uncoded 07/12/11 07:34 IRRITATION Vital Signs Vital Signs - 24 hr 03/06/21 11:38 03/06/21 12:00 03/06/21 14:00 Temperature 38.1 C H Pulse Rate 103 H 103 H 112 H Respiratory Rate 33 H 36 H Blood Pressure 161/82 H 182/95 H Pulse Oximetry 94 93 92 03/06/21 14:43 03/06/21 16:00 03/06/21 16:46 Temperature 37.6 C Pulse Rate 115 H 114 H 117 H Respiratory Rate 26 H 33 H Blood Pressure 149/84 H Pulse Oximetry 92 93 93 03/06/21 18:00 03/06/21 20:00 03/06/21 20:09 Temperature 38.2 C H 39.6 C H Pulse Rate 120 H 121 H 123 H Respiratory Rate 30 H 30 H Blood Pressure 145/84 H 148/90 H Pulse Oximetry 92 92 03/06/21 20:39 03/06/21 21:00 03/06/21 21:30 Temperature 39.6 C H 39.6 C H Puls
[2021-03-07 12:07] LABS: Glucose Point of Care 208 mg/dl (65-105)
[2021-03-07] MEDS: INSULIN ASPART (*BKC) 100 UNITS/ML SUB-Q ×3 (12:09→23:47)
--- NOTE | 2021-03-07 14:12 | PM.PNCARD ---
Progress Note: A&P Assessment and Plan (1) Cardiac arrest: Code(s): I46.9 - Cardiac arrest, cause unspecified Status: Acute Assessment and Plan: Patient had an asystolic and PEA arrest, no evidence of any torsade or ventricular arrhythmias then or to date. No evidence of acute VT Taken off Sotalol, remains on metoprolol 25 mg p.o. q.12 hours. No evidence of ventricular arrhythmias or QT prolongation to support Sotalol as etiology. Has COPD but does not appear to have significant CO2 retention No evidence of PE Hemodynamically stable since admission. Continue supportive care. Patient remains critically ill with a poor prognosis. Continue supportive care. Neurologic recovery of paramount importance (2) Elevated troponin I level: Code(s): R77.8 - Other specified abnormalities of plasma proteins Status: Acute Assessment and Plan: Type 2 VT secondary to cardiac arrest. She did have some lateral ST depression on admission but apparently cardiac catheterization in September did not show any CAD. No changes today. Off anticoagulation and aspirin due to epistaxis. H&H stable thus far. Continue to monitor (3) Paroxysmal atrial fibrillation: Code(s): I48.0 - Paroxysmal atrial fibrillation Status: Acute Assessment and Plan: History of paroxysmal AFib and atrial flutter, taking sotalol, with a AFib ablation in August 2020 in [place]. Records have been requested Currently in sinus rhythm with intermittent SVT off sotalol. (4) Chronic anticoagulation: Code(s): Z79.01 - termite renewal inspector (current) use of anticoagulants Status: Acute Assessment and Plan: Off Warfarin. INR 1.0. Anticoagulation discontinued due to epistaxis. (5) Chronic kidney disease: Code(s): N18.9 - Chronic kidney disease, unspecified Status: Acute Assessment and Plan: Has history of stage IIIB kidney disease, presumably chronic, stable at present. (6) COPD (chronic obstructive pulmonary disease): Code(s): J44.9 - Chronic obstructive pulmonary disease, unspecified Status: Acute Assessment and Plan: Apparently takes prednisone chronically at home. May need ongoing steroids. (7) Elevated LFTs: Code(s): R79.89 - Other specified abnormal findings of blood chemistry Status: Acute Assessment and Plan: Secondary to the cardiac arrest (8) Acute respiratory failure with hypoxia: Code(s): J96.01 - Acute respiratory failure with hypoxia Status: Acute Assessment and Plan: On ventilator, FiO2 30% (9) Myoclonic jerking: Code(s): G25.3 - Myoclonus Status: Acute Assessment and Plan: On Keppra. 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 Unfortunately no significant neurologic improvement. Findings concerning for significant anoxic injury. Family wants to continue with full support at this time. Subjective Date/time seen: Date of service: 03/07/21 13:20 Interval history: Follow-up for Cardiac arrest, acute respiratory failure, myoclonic jerks, elevated LFTs Date of service 03/03/2021: Unfortunately, no significant or meaningful improvement to this point. Not responsive. Date of service 03/04/2021: No changes. Not responsive. No arrhythmia Date of service 03/05/2021: Still not responsive. Heart rate and blood pressure will increase with reduction of sedation. Date of service 03/06/2021: No significant changes. Remains intubated and sedated. Date of service 03/07/2021: Patient not able to provide any history. No new changes, patient remains unresponsive, without significant sedation. Patient having significant epistaxis necessitating discontinuation of aspirin and anticoagulation. Sinus rhythm with intermittent brief SVT on telemetry overnight. Review of Systems Review of Systems: ROS unobtainable: Yes unobtainable due to endotracheal tube, unobtainable due to medical condition
[2021-03-07 18:24] LABS: Glucose Point of Care 209 mg/dl (65-105)
[2021-03-07 23:46] LABS: Glucose Point of Care 250 mg/dl (65-105)
[2021-03-07] MEDS: OXYMETAZOLINE HCL 0.05% NAS 15 ML BTL (*BKC) 1 SPRAY NASAL (23:54)
[2021-03-08] VITALS (31 sets, daily range): BP systolic 98–138; BP diastolic 58–81; PULSE 90–147; RESP 12–26; TEMP 37.8–39.3; O2SAT 96–100
[2021-03-08] MEDS: ALBUTEROL SULFATE NEB 2.5 MG/0.5 ML INH INHALATION ×3 (02:01→13:32)
[2021-03-08] MEDS: IPRATROPIUM BR 0.02% INH SOLN 0.5 MG/2.5 ML VIAL INHALATION ×3 (02:01→13:32)
[2021-03-08 05:11] LABS: Hematocrit 32.3 % (37.0-47.0); Hemoglobin 10.2 g/dL (12.0-15.0); Mean Corpuscular HGB Conc 31.6 g/dl (32-36); Mean Corpuscular Hemoglobin 28.7 pg (26-34); Mean Corpuscular Volume 90.7 fl (80-100); Mean Platelet Volume 10.2 fl (7.4-10.4); Platelet Count Result 178 k/mm3 (150-375); Red Blood Count 3.56 M/mm3 (4.2-5.4); Red Cell Distribution Width 16.1 % (11.5-14.5); White Blood Count 22.8 K/mm3 (4.5-10.0)
[2021-03-08 05:14] LABS: Alveolar/Arterial O2 Gradient 105.7 mmHg; Base Excess ABG 1.8 mEq/l (+/-2.0); Carboxyhemoglobin 0.3 % THb (0-2.0); Fractional Inspired Oxygen 30 %; HCO3 ABG 23.7 mEq/l (22.0-26.0); Methemoglobin ABG 0.3 %THb (0-1.5); Oxygen Content ABG 15.9 %vol (16.0-22.0); Oxygen Saturation ABG 96.4 % (95.0-100.0); Oxyhemoglobin 94.1 % THb (90.0-100.0); PO2 ABG 74.1 mmHg (80.0-100.0); PO2 FiO2 Ratio Arterial Blood 2.47 %; Reduced Hemoglobin 5.3 %THb (0-5.0)
[2021-03-08 05:17] LABS: Arterial Blood Gas PEEP 5 cmH2O; Arterial Blood Gas Vent Mode CMV; Arterial Blood Gas Ventilator rate 18 /MIN; Device VENTILATOR; Modified Allen's Test Pass; Site Drawn LEFT RADIAL; pH ABG 7.531 (7.350-7.450)
[2021-03-08 05:18] LABS: Arterial Blood Gas Tidal Volume 380 ml
[2021-03-08 05:40] LABS: Alanine Aminotransferase 59 U/L (4-35); Albumin Level 3.3 g/dL (3.5-5.1); Alkaline Phosphatase 62 U/L (38-126); Anion Gap 3 mmol/L (8-16); Aspartate Amino Transferase 58 U/L (14-36); Bilirubin,Total 0.4 mg/dL (0.2-1.3); Blood Urea Nitrogen 37 mg/dL (7-17); Calcium 9.1 mg/dL (8.4-10.2); Carbon Dioxide 28 mmol/L (22-30); Chloride 112 mmol/L (98-107); Estimated CRCL calculation 60 ml/min; Estimated Glomerular Filt Rate 56; Glucose 239 mg/dL (65-110); Magnesium 1.9 mg/dL (1.6-2.3); Potassium 3.5 mmol/L (3.4-5.0); Sodium 143 mmol/L (137-145)
[2021-03-08] MEDS: HYDROCORTISONE SODIUM SUCCINATE 100 MG/2 ML VIAL 50 MG IV PUSH (06:12)
[2021-03-08] MEDS: CENTRAL LINE FLUSH 10 ML IV PUSH ×3 (06:13→20:57)
[2021-03-08] MEDS: levETIRAcetam 500MG/NACL 100ML 500 MG/100 ML BAG 400 MG IVPB ×2 (06:15→18:23)
[2021-03-08] MEDS: INSULIN ASPART (*BKC) 100 UNITS/ML SUB-Q ×4 (06:54→23:39)
[2021-03-08 06:59] LABS: Glucose Point of Care 227 mg/dl (65-105)
[2021-03-08] MEDS: METOPROLOL TARTRATE 25 MG TABLET PO ×2 (08:52→20:56)
[2021-03-08] MEDS: POTASSIUM CHLORIDE 20 MEQ PACKET (FOR LIQUID) 40 MEQ FEED TUBE (08:52)
[2021-03-08] MEDS: ARTIFICIAL TEARS OPHTH SOLN 15 ML BOTTLE 1 DROP EACH EYE (09:01)
[2021-03-08] MEDS: PANTOPRAZOLE SODIUM IV 40 MG VIAL IV PUSH (09:01)
[2021-03-08] MEDS: INSULIN GLARGINE (*BKC) 100 UNITS/ML 15 UNITS SUB-Q (09:01)
[2021-03-08] MEDS: MINERAL OIL/WHITE PETROLATUM OINTMENT 1 APPLIC EACH EYE ×2 (09:02→20:56)
--- NOTE | 2021-03-08 09:10 | WPDINTPN ---
Progress Note: A&P Assessment and Plan (1) Cardiac arrest: Code(s): I46.9 - Cardiac arrest, cause unspecified Status: Acute Assessment and Plan: Patient was asystole and PEA arrest of unknown etiology, patient is on sotalol but there is no evidence of prolonged QT intervals, EKGs did not show any torsades of ventricular arrhythmias. According the ER physician's patient was down for about 25 minutes -no evidence of acute PR, -patient has a history of COPD but her ABGs did not show hypercapnia -CTA chest with no evidence of PE or dissection -hemodynamically stable -status post target temperature management I reviewed her records obtained from [facility], [place], operated by [facility] where patient was admitted in September of this year with ?cardiac arrest her echocardiogram had a similar findings at at that time the form of 60-65% EF aortic stenosis AI and PH. Patient also had AFib and underwent ablation later in the course. Will discuss with Cardiology -echocardiogram 1. Complete two-dimensional, color flow and Doppler transthoracic echocardiogram is performed. 2. Strain analysis performed. 3. Left ventricular chamber dimension is normal. 4. Left ventricular systolic function is normal, estimated at 65-70%. 5. There is mildly increased left ventricular wall thickness. 6. The left ventricular diastolic function is normal. 7. Global longitudinal strain is normal at -22 %. 8. Left atrial chamber dimension is moderately enlarged. 9. There is moderate aortic valve stenosis with a peak velocity of 258 cm/s, mean gradient of 15 mmHg, and aortic valve area of 1.5 cm2. 10. There is moderate to severe aortic valve regurgitation. 11. There is moderate aortic valve calcification. 12. There is moderate mitral valve regurgitation. 13. There is mild tricuspid valve regurgitation. 14. Severe pulmonary hypertension, estimated pulmonary arterial systolic pressure is 60 mmHg. (2) Anoxic brain injury: Code(s): G93.1 - Anoxic brain damage, not elsewhere classified Status: Acute Assessment and Plan: - status post target temperature management -CT scan of the brain did not show any acute intracranial abnormality, chronic left parietal lobe infarction and chronic age-related findings -appreciate Neurology evaluation and recommendations - continue to hold propofol as much as possible -EEG 03/03 Abnormal record due to the presence of diffuse low-voltage beta activity without any change throughout the tracing and also with no evidence of the seizure-like activity .clinical correlation recommended Repeat head CT 10/7 showed sinusitis and no other change -there has been no significant improvement in her mental status over last few days (3) Myoclonic jerking: Code(s): G25.3 - Myoclonus Status: Acute Assessment and Plan: likely secondary to anoxic brain injury -patient has been started on Keppra, will continue and monitor -also on propofol (4) Acute respiratory failure with hypoxia: Code(s): J96.01 - Acute respiratory failure with hypoxia Status: Acute Assessment and Plan: Acute respiratory failure due to cardiac arrest, -intubated in the field on 03/01/2021 -on CMV mode of ventilation, peep of 5, and 30% FiO2. I have placed her on pressure support 15/5 with adequate tidal volumes and rate and will continue -chest x-ray and ABGs reviewed, -continue bronchodilators given history of COPD - her vent weaning will depend on her neurological improvement (5) Sinusitis: Code(s): J32.9 - Chronic sinusitis, unspecified Status: Acute Assessment and Plan: Patient was having small amount of purulent discharge coming from nostrils and also had sinusitis on CT scan She does not have NG but has OG and endotracheal tube White count has increased and patient is now afebrile Patient was Switched to IV Zosyn. She continues to have fevers and will expand antibiotic cover
--- NOTE | 2021-03-08 09:49 | PM.IMPN ---
Progress Note: A&P Additional Plan START OF DOCTOR BEBA?S PROGRESS NOTE Subjective: The patient is intubated and unresponsive. She is not sedated Objective: General: -unresponsive -No acute distress -No dyspnea -No tachypnea Heart: -iRegular rate -Regular rhythm -No murmurs -No gallops -No rubs Lungs: -No wheeze -No rhonchi -No rales Abdomen: -Normal bowel sounds in all four quadrants -No rebound -No guarding -No tenderness Extremities: -2/4 pulse in all four extremities -No clubbing -No cyanosis -bimanual edema present Additional Details / Additional Findings / Exceptions / Miscellaneous: Pupillary reflex present Pertinent Laboratory Results / Pertinent Radiology Results / Pertinent Diagnostic Results / Pertinent Vital Signs: Heart rate 113, temperature 102.3?, respirations 21, white blood count 22.8, hemoglobin 10.2, AST 50, ALT 59 Assessment / Plan: Cardiopulmonary arrest with PE 8 noted in the field. Patient status post intubation March 01, 2021. Turn q.2 hours. Ventilator management as per flexible babysitter. Current ventilator settings as of 9:56 a.m. on March 08, 2021: Spontaneous. Backup rate 14. Pressure support 15, peep: 5, FiO2 30% Anoxic brain injury. I will follow up on neurology's final recommendations. Keppra 500 mg IV q.12 hours for myoclonic jerks. 03/04/2021: EEG: Abnormal record due to the presence of diffuse low-voltage beta activity without any change throughout the tracing and also with no evidence of the seizure-like activity .clinical correlation recommended Pneumonia. DuoNeb q.6 hours plus Zosyn 3.375 g IV q.6 hours Sinusitis. Zosyn 3.375 g IV q.6 hours Epistaxis. I appreciate otolaryngology evaluate the patient History of bladder cancer, status post ileal conduit placement Paroxysmal atrial fibrillation, status post cardiac ablation. Lovenox 85 mg subcutaneously q.12 hours plus metoprolol 25 mg NG q.12 hours COPD Depression Hyperglycemia, likely due to stress reaction and/or hydrocortisone therapy. Will check fingerstick glucose q.6 hours and provide insulin sliding scale plus Lantus 15 units subcutaneously daily Hypertriglyceridemia Rheumatoid arthritis. Hydrocortisone 50 mg IV daily Moderate aortic stenosis Moderate to severe aortic regurgitation Moderate mitral regurgitation Severe pulmonary hypertension Anemia with borderline iron deficiency. Will monitor hemoglobin intermittently Acute renal insufficiency resolved Marijuana use Transaminitis. Will monitor LFTs periodically with CMP GI prophylaxis. Protonix 40 mg IV daily DVT prophylaxis. Lovenox 85 mg subcutaneously q.12 hours Disposition: Poor prognosis END OF DOCTOR BEBA?S PROGRESS NOTE Subjective Date/time seen: 03/08/21 09:49 Objective Data Vital Signs Vital Signs: Vital Signs - 24 hr 03/07/21 10:00 03/07/21 11:30 03/07/21 12:00 Temperature 98.7 F Pulse Rate 103 H 110 H 98 Respiratory Rate 22 H 20 Blood Pressure 139/88 139/78 Pulse Oximetry 99 95 98 03/07/21 14:00 03/07/21 14:27 03/07/21 14:28 Temperature Pulse Rate 98 97 97 Respiratory Rate 20 21 H Blood Pressure 132/79 Pulse Oximetry 96 98 03/07/21 14:35 03/07/21 16:00 03/07/21 17:14 Temperature 99.4 F Pulse Rate 100 121 H 111 H Respiratory Rate 22 H 22 H Blood Pressure 130/74 Pulse Oximetry 100 95 03/07/21 18:00 03/07/21 20:00 03/07/21 20:16 Temperature 103.1 F H Pulse Rate 116 H 125 H 125 H Respiratory Rate 22 H 36 H Blood Pressure 130/85 144/89 H Pulse Oximetry 97 97 03/07/21 20:24 03/07/21 20:36 03/07/21 22:00 Temperature 103.0 F H Pulse Rate 124 H 127 H 109 H Respiratory Rate 25 H 23 H 21 H Blood Pressure 119/75 Pulse Oximetry 96 98 03/07/21 22:51 03/08/21 00:00 03/08/21 02:00 Temperature 102.8 F H 102.5 F H Pulse Rate 106 H 109 H 110 H Respiratory Rate 23 H 23 H Blood Pressure 134/77 135/73
[2021-03-08 12:38] LABS: Glucose Point of Care 241 mg/dl (65-105)
[2021-03-08] MEDS: METOPROLOL TARTRATE INJ 5 MG/5 ML VIAL IV PUSH ×2 (16:15→19:47)
[2021-03-08 18:32] LABS: Glucose Point of Care 209 mg/dl (65-105)
--- NOTE | 2021-03-08 19:53 | ECG_ITS ---
Measurements Intervals [place] Rate: 152 P: GA: 0 QRS: 19 QRSD: 85 T: 56 QT: 270 QTc: 430 Interpretive Statements ATRIAL FIBRILLATION WITH RAPID VENTRICULAR RESPONSE NONSPECIFIC ST & T-WAVE ABNORMALITY- INF/LAT LEADS BASELINE ARTIFACT- II, III, AVF, V4-V6 ABNORMAL ECG Electronically Signed On 03-09-2021 8:06:20 CDT by Uzair Shook D.O.
[2021-03-08] MEDS: AMIODARONE 150 MG/D5W 100 ML 150 MG/100 ML BAG 600 MG IV CONT (20:23)
[2021-03-08] MEDS: AMIODARONE 360 MG/D5W 200 ML 360 MG/200 ML BAG 33.33 MG IV CONT (20:24)
--- NOTE | 2021-03-08 21:00 | PC.NURSE ---
Patient placed on cooling blanket for elevated temp.
[2021-03-08 23:38] LABS: Glucose Point of Care 213 mg/dl (65-105)
[2021-03-09] VITALS (31 sets, daily range): BP systolic 95–148; BP diastolic 59–107; PULSE 86–153; RESP 18–33; TEMP 36.7–39.5; O2SAT 99–100
[2021-03-09] MEDS: AMIODARONE 360 MG/D5W 200 ML 360 MG/200 ML BAG 33.33 MG IV CONT ×4 (01:04→19:00)
[2021-03-09] MEDS: METOPROLOL TARTRATE INJ 5 MG/5 ML VIAL IV PUSH ×2 (01:11→05:48)
[2021-03-09 04:55] LABS: Alveolar/Arterial O2 Gradient 107.9 mmHg; Base Excess ABG 2.6 mEq/l (+/-2.0); Fractional Inspired Oxygen 30 %; Oxygen Saturation ABG 96.7 % (95.0-100.0); Oxyhemoglobin 94.2 % THb (90.0-100.0); PCO2 ABG 27.2 mmHg (35.0-45.0); PO2 FiO2 Ratio Arterial Blood 2.47 %; Total Hemoglobin 11.3 g/dL (12.0-18.0)
[2021-03-09 04:56] LABS: pH ABG 7.564 (7.350-7.450)
[2021-03-09 04:57] LABS: Arterial Blood Gas Vent Mode CMV; Arterial Blood Gas Ventilator rate 18 /MIN; Device VENTILATOR; Modified Allen's Test Pass; Site Drawn RIGHT RADIAL
[2021-03-09 04:58] LABS: Arterial Blood Gas PEEP 5 cmH2O; Arterial Blood Gas Tidal Volume 380 ml
[2021-03-09 05:08] LABS: Hematocrit 32.2 % (37.0-47.0); Hemoglobin 10.1 g/dL (12.0-15.0); Mean Corpuscular HGB Conc 31.4 g/dl (32-36); Mean Corpuscular Hemoglobin 28.7 pg (26-34); Mean Corpuscular Volume 91.5 fl (80-100); Mean Platelet Volume 10.7 fl (7.4-10.4); Platelet Count Result 182 k/mm3 (150-375); Red Blood Count 3.52 M/mm3 (4.2-5.4); White Blood Count 23.5 K/mm3 (4.5-10.0)
[2021-03-09 05:22] LABS: Alanine Aminotransferase 94 U/L (4-35); Albumin Level 3.3 g/dL (3.5-5.1); Alkaline Phosphatase 64 U/L (38-126); Anion Gap 8 mmol/L (8-16); Aspartate Amino Transferase 75 U/L (14-36); Bilirubin,Total 0.3 mg/dL (0.2-1.3); Blood Urea Nitrogen 30 mg/dL (7-17); Calcium 8.5 mg/dL (8.4-10.2); Carbon Dioxide 27 mmol/L (22-30); Chloride 110 mmol/L (98-107); Estimated CRCL calculation 75 ml/min; Estimated Glomerular Filt Rate > 60; Glucose 245 mg/dL (65-110); Magnesium 1.9 mg/dL (1.6-2.3); Sodium 145 mmol/L (137-145)
[2021-03-09] MEDS: CENTRAL LINE FLUSH 10 ML IV PUSH ×3 (05:28→20:28)
[2021-03-09] MEDS: levETIRAcetam 500MG/NACL 100ML 500 MG/100 ML BAG 400 MG IVPB ×2 (05:28→17:20)
[2021-03-09] MEDS: INSULIN ASPART (*BKC) 100 UNITS/ML SUB-Q ×4 (05:29→20:19)
--- NOTE | 2021-03-09 10:26 | PM.IMPN ---
Progress Note: A&P Additional Plan START OF DOCTOR BEBA?S PROGRESS NOTE Subjective: The patient is intubated and unresponsive. She is not sedated Objective: General: -unresponsive -No acute distress -No dyspnea -No tachypnea Heart: -iRegular rate -Regular rhythm -No murmurs -No gallops -No rubs Lungs: -No wheeze -No rhonchi -No rales Abdomen: -Normal bowel sounds in all four quadrants -No rebound -No guarding -No tenderness Extremities: -2/4 pulse in all four extremities -No clubbing -No cyanosis -bimanual edema present Additional Details / Additional Findings / Exceptions / Miscellaneous: Pupillary reflex present Pertinent Laboratory Results / Pertinent Radiology Results / Pertinent Diagnostic Results / Pertinent Vital Signs: Heart rate 125, white blood cell count 23.5, hemoglobin 10.1, potassium 3, AST 75, ALT 94 Assessment / Plan: Cardiopulmonary arrest with PE 8 noted in the field. Patient status post intubation March 01, 2021. Turn q.2 hours. Ventilator management as per pet adoption counselor. Current ventilator settings as of 10:35 a.m. on March 09, 2021: CMV, rate 24, tidal volume 380, peep 5, FiO2 30% Anoxic brain injury. I will follow up on neurology's final recommendations. Keppra 500 mg IV q.12 hours for myoclonic jerks. 03/04/2021: EEG: Abnormal record due to the presence of diffuse low-voltage beta activity without any change throughout the tracing and also with no evidence of the seizure-like activity .clinical correlation recommended Pneumonia. DuoNeb q.6 hours plus Zosyn 3.375 g IV q.6 hours plus vancomycin 1250 mg IV q.18 hours Sinusitis. Zosyn 3.375 g IV q.6 hours Epistaxis. I appreciate otolaryngology evaluate the patient History of bladder cancer, status post ileal conduit placement Paroxysmal atrial fibrillation, status post cardiac ablation. Lovenox 85 mg subcutaneously q.12 hours plus metoprolol 25 mg NG q.12 hours plus IV amiodarone drip COPD Depression Hyperglycemia, likely due to stress reaction and/or hydrocortisone therapy. Will check fingerstick glucose q.6 hours and provide insulin sliding scale plus Lantus 30 units subcutaneously daily Hypertriglyceridemia Rheumatoid arthritis. Hydrocortisone 20 mg IV daily Moderate aortic stenosis Moderate to severe aortic regurgitation Moderate mitral regurgitation Severe pulmonary hypertension Anemia with borderline iron deficiency. Will monitor hemoglobin intermittently Acute renal insufficiency resolved Marijuana use Hypokalemia. Monitor potassium levels intermittently and supplements as necessary Transaminitis. Will monitor LFTs periodically with CMP GI prophylaxis. Protonix 40 mg IV daily DVT prophylaxis. Lovenox 85 mg subcutaneously q.12 hours Disposition: Poor prognosis END OF DOCTOR BEBA?S PROGRESS NOTE Subjective Date/time seen: 03/09/21 10:26 Objective Data Vital Signs Vital Signs: Vital Signs - 24 hr 03/08/21 11:14 03/08/21 11:29 03/08/21 12:00 Temperature 100.1 F H Pulse Rate 92 101 H Respiratory Rate 12 Blood Pressure 120/78 Pulse Oximetry 99 100 99 03/08/21 13:30 03/08/21 13:32 03/08/21 14:00 Temperature Pulse Rate 96 115 H 105 H Respiratory Rate 21 H 14 Blood Pressure 116/72 Pulse Oximetry 99 98 03/08/21 16:00 03/08/21 16:15 03/08/21 16:57 Temperature 100.4 F H Pulse Rate 140 H 144 H 98 Respiratory Rate 16 Blood Pressure 135/61 Pulse Oximetry 99 98 03/08/21 18:00 03/08/21 19:47 03/08/21 20:00 Temperature Pulse Rate 104 H 133 H 131 H Respiratory Rate 24 H 20 Blood Pressure 114/58 L 98/63 L Pulse Oximetry 99 98 03/08/21 20:23 03/08/21 20:47 03/08/21 20:48 Temperature Pulse Rate 134 H 147 H 141 H Respiratory Rate Blood Pressure 105/81 Pulse Oximetry 100 03/08/21 20:56 03/08/21 21:00 03/08/21 22:00 Temperature 102.7 F H Pulse Rate 133 H 130 H 135 H Res
[2021-03-09] MEDS: ARTIFICIAL TEARS OPHTH SOLN 15 ML BOTTLE 1 DROP EACH EYE ×2 (10:30→20:28)
[2021-03-09] MEDS: MINERAL OIL/WHITE PETROLATUM OINTMENT 1 APPLIC EACH EYE ×2 (10:30→20:28)
[2021-03-09] MEDS: HYDROCORTISONE SODIUM SUCCINATE 100 MG/2 ML VIAL 50 MG IV PUSH (10:31)
[2021-03-09] MEDS: INSULIN GLARGINE (*BKC) 100 UNITS/ML 30 UNITS SUB-Q (10:32)
[2021-03-09] MEDS: METOPROLOL TARTRATE 25 MG TABLET PO ×2 (10:33→20:26)
[2021-03-09] MEDS: PANTOPRAZOLE SODIUM IV 40 MG VIAL IV PUSH (10:34)
--- NOTE | 2021-03-09 10:50 | WPDINTPN ---
Progress Note: A&P Assessment and Plan (1) Cardiac arrest: Code(s): I46.9 - Cardiac arrest, cause unspecified Status: Acute Assessment and Plan: Patient was asystole and PEA arrest of unknown etiology, patient is on sotalol but there is no evidence of prolonged QT intervals, EKGs did not show any torsades of ventricular arrhythmias. According the ER physician's patient was down for about 25 minutes -no evidence of acute LA, -patient has a history of COPD but her ABGs did not show hypercapnia -CTA chest with no evidence of PE or dissection -hemodynamically stable -status post target temperature management I reviewed her records obtained from [facility] where patient was admitted in September of this year with ?cardiac arrest her echocardiogram had a similar findings at at that time the form of 60-65% EF aortic stenosis AI and PH. Patient also had AFib and underwent ablation later in the course. Will discuss with Cardiology -Echocardiogram 1. Complete two-dimensional, color flow and Doppler transthoracic echocardiogram is performed. 2. Strain analysis performed. 3. Left ventricular chamber dimension is normal. 4. Left ventricular systolic function is normal, estimated at 65-70%. 5. There is mildly increased left ventricular wall thickness. 6. The left ventricular diastolic function is normal. 7. Global longitudinal strain is normal at -22 %. 8. Left atrial chamber dimension is moderately enlarged. 9. There is moderate aortic valve stenosis with a peak velocity of 258 cm/s, mean gradient of 15 mmHg, and aortic valve area of 1.5 cm2. 10. There is moderate to severe aortic valve regurgitation. 11. There is moderate aortic valve calcification. 12. There is moderate mitral valve regurgitation. 13. There is mild tricuspid valve regurgitation. 14. Severe pulmonary hypertension, estimated pulmonary arterial systolic pressure is 60 mmHg. (2) Anoxic brain injury: Code(s): G93.1 - Anoxic brain damage, not elsewhere classified Status: Acute Assessment and Plan: - status post target temperature management -CT scan of the brain did not show any acute intracranial abnormality, chronic left parietal lobe infarction and chronic age-related findings -appreciate Neurology evaluation and recommendations - continue to hold propofol as much as possible -EEG 03/03 Abnormal record due to the presence of diffuse low-voltage beta activity without any change throughout the tracing and also with no evidence of the seizure-like activity .clinical correlation recommended Repeat head CT 10/7 showed sinusitis and no other change -there has been no significant improvement in her mental status over last few days (3) Myoclonic jerking: Code(s): G25.3 - Myoclonus Status: Acute Assessment and Plan: likely secondary to anoxic brain injury -patient has been started on Keppra, will continue and monitor -also often and on propofol (4) Acute respiratory failure with hypoxia: Code(s): J96.01 - Acute respiratory failure with hypoxia Status: Acute Assessment and Plan: Acute respiratory failure due to cardiac arrest, -intubated in the field on 03/01/2021 -on CMV mode of ventilation, peep of 5, and 30% FiO2. I have placed her on pressure support 15/5 with adequate tidal volumes and rate and will continue -chest x-ray and ABGs reviewed, -continue bronchodilators given history of COPD - her vent weaning will depend on her neurological improvement (5) Sinusitis: Code(s): J32.9 - Chronic sinusitis, unspecified Status: Acute Assessment and Plan: Patient was having small amount of purulent discharge coming from nostrils and also had sinusitis on CT scan She does not have NG but has OG and endotracheal tube White count has increased and patient is now febrile Continue IV vancomycin and IV Zosyn. Sputum and blood cultures are negative as of now Sh
[2021-03-09 10:55] LABS: Glucose Point of Care 190 mg/dl (65-105)
--- NOTE | 2021-03-09 11:26 | PCDIET ---
ICU Rounding Note: Patient tolerating Vital 1.2 at 60mL/hr with 200mL water flush every 4 hours. Suggested change to Glucerna 1.2; however, MD plans to taper steroids which may help blood sugars. Gastric residuals 120mL and below. Last recorded weight is 89.4kg which is increased from last review. Bowel Motility: Last documented BM on 03/08/21 x 2. Labs Reviewed: WBC (23.5), RBC (3.52), Hgb (10.1), Hct (32.2), Glu (245), BUN (30), K (3.0), Alb (3.3) Meds Noted: Amiodarone, Solu Cortef, Novolog, Lantus, Keppra, Lopressor, Protonix, Zosyn, Vancomycin, KCl Additional Notes: No pressure sores documented. Following daily in ICU rounds. Assessing/reassessing every Tuesday/Tuesday.
[2021-03-09 13:18] LABS: Glucose Point of Care 253 mg/dl (65-105)
[2021-03-09 18:15] LABS: Glucose Point of Care 275 mg/dl (65-105)
[2021-03-09 20:17] LABS: Glucose Point of Care 264 mg/dl (65-105)
[2021-03-10] VITALS (28 sets, daily range): BP systolic 85–127; BP diastolic 48–72; PULSE 85–120; RESP 18–24; TEMP 36.6–38.7; O2SAT 99–100
[2021-03-10 00:36] LABS: Glucose Point of Care 209 mg/dl (65-105)
[2021-03-10] MEDS: AMIODARONE 360 MG/D5W 200 ML 360 MG/200 ML BAG 33.33 MG IV CONT ×4 (00:37→18:27)
[2021-03-10] MEDS: INSULIN ASPART (*BKC) 100 UNITS/ML SUB-Q ×5 (00:38→21:04)
[2021-03-10 04:25] LABS: Hematocrit 30.2 % (37.0-47.0); Hemoglobin 9.7 g/dL (12.0-15.0); Mean Corpuscular HGB Conc 32.1 g/dl (32-36); Mean Corpuscular Volume 90.1 fl (80-100); Platelet Count Result 182 k/mm3 (150-375); Red Blood Count 3.35 M/mm3 (4.2-5.4); Red Cell Distribution Width 15.7 % (11.5-14.5); White Blood Count 20.7 K/mm3 (4.5-10.0)
[2021-03-10 04:32] LABS: Alanine Aminotransferase 152 U/L (4-35); Albumin Level 3.1 g/dL (3.5-5.1); Alkaline Phosphatase 68 U/L (38-126); Anion Gap 6 mmol/L (8-16); Aspartate Amino Transferase 92 U/L (14-36); Bilirubin,Total 0.5 mg/dL (0.2-1.3); Blood Urea Nitrogen 26 mg/dL (7-17); Calcium 8.7 mg/dL (8.4-10.2); Carbon Dioxide 26 mmol/L (22-30); Chloride 104 mmol/L (98-107); Estimated CRCL calculation 85 ml/min; Estimated Glomerular Filt Rate > 60; Glucose 252 mg/dL (65-110); Magnesium 1.6 mg/dL (1.6-2.3); Potassium 3.4 mmol/L (3.4-5.0); Sodium 136 mmol/L (137-145)
[2021-03-10 05:06] LABS: Alveolar/Arterial O2 Gradient 99.2 mmHg; Base Excess ABG -1.9 mEq/l (+/-2.0); Carboxyhemoglobin 0.3 % THb (0-2.0); Fractional Inspired Oxygen 30 %; HCO3 ABG 20.6 mEq/l (22.0-26.0); Methemoglobin ABG 0.3 %THb (0-1.5); Oxygen Content ABG 14.4 %vol (16.0-22.0); Oxygen Saturation ABG 96.9 % (95.0-100.0); Oxyhemoglobin 94.4 % THb (90.0-100.0); PCO2 ABG 27.8 mmHg (35.0-45.0); PO2 FiO2 Ratio Arterial Blood 2.73 %; Total Hemoglobin 10.8 g/dL (12.0-18.0); pH ABG 7.487 (7.350-7.450)
[2021-03-10 05:07] LABS: Arterial Blood Gas Ventilator rate 18 /MIN; Device VENTILATOR; Modified Allen's Test Pass; Site Drawn RIGHT RADIAL
[2021-03-10 05:08] LABS: Arterial Blood Gas PEEP 5 cmH2O; Arterial Blood Gas Tidal Volume 380 ml; Arterial Blood Gas Vent Mode CMV
[2021-03-10 05:10] LABS: Osmolality, Urine 580 mOsm/kg (50-1200)
[2021-03-10] MEDS: levETIRAcetam 500MG/NACL 100ML 500 MG/100 ML BAG 400 MG IVPB ×2 (05:43→17:08)
[2021-03-10] MEDS: CENTRAL LINE FLUSH 10 ML IV PUSH ×3 (05:44→20:47)
[2021-03-10] MEDS: INSULIN GLARGINE (*BKC) 100 UNITS/ML 30 UNITS SUB-Q (08:09)
[2021-03-10] MEDS: HYDROCORTISONE SODIUM SUCCINATE 100 MG/2 ML VIAL 20 MG IV PUSH (08:10)
[2021-03-10] MEDS: MINERAL OIL/WHITE PETROLATUM OINTMENT 1 APPLIC EACH EYE ×2 (08:10→20:46)
[2021-03-10] MEDS: ARTIFICIAL TEARS OPHTH SOLN 15 ML BOTTLE 1 DROP EACH EYE ×2 (08:10→20:46)
[2021-03-10] MEDS: METOPROLOL TARTRATE 25 MG TABLET PO (08:10)
[2021-03-10] MEDS: PANTOPRAZOLE SODIUM IV 40 MG VIAL IV PUSH (08:11)
[2021-03-10 08:19] LABS: Glucose Point of Care 224 mg/dl (65-105)
[2021-03-10 08:53] LABS: Add Urine Microscopic? YES; Appearance Urine Cloudy (Clear); Bacteria Urine 1+ /hpf; Bilirubin Urine Negative (Negative); Blood Urine 1+ (Negative); Color Urine Yellow (Yellow); Glucose Urine UA 3+ mg/dL (Negative); Ketones Urine Negative (Negative); Leukocyte Esterase Ur Trace LEU/UL (Negative); Mucus Urine Few /lpf; Nitrate Urine Positive (Negative); Protein Urine 1+ mg/dL (Negative); Specific Grav Ur 1.017 (1.001-1.035); Squamous Epithelial Cell Urine Occasional /hpf (Few); Urobilinogen Urine Negative mg/dL (<2.0); WBC Urine 51-75 /hpf
--- NOTE | 2021-03-10 11:21 | PCDIET ---
Nutrition Follow-Up Complete: Nutrition Diagnosis: Inadequate oral intake related to oral intubation as evidenced by NPO status. Nutrition Goal: Patient to meet estimated nutritional needs. Goal met. Patient tolerating Vital 1.2 at 60mL/hr goal rate. Residuals 225mL and below. Water flush continues at 200mL every 4 hours. Last recorded weight is 89.5 kg which is stable. Bowel Motility: Last documented BM on 03/08/21 x 2. Labs Reviewed: WBC (20.7), RBC (3.35), Hgb (9.7), Hct (30.2), Glu (252), BUN (26), Na (136), Alb (3.1) Meds Noted: Amiodarone, Keppra, Solu Cortef, Novolog, Lantus, Lopressor, Protonix, Zosyn, Miralax, Vancomycin Additional Notes: No documented skin breakdown. Will continue to monitor with same goal. Nutrition Monitoring and Evaluation: Follow up every Tuesday/Tuesday.
--- NOTE | 2021-03-10 11:49 | WPDINTPN ---
Progress Note: A&P Assessment and Plan (1) Cardiac arrest: Code(s): I46.9 - Cardiac arrest, cause unspecified Status: Acute Assessment and Plan: Patient was asystole and PEA arrest of unknown etiology, patient is on sotalol but there is no evidence of prolonged QT intervals, EKGs did not show any torsades of ventricular arrhythmias. According the ER physician's patient was down for about 25 minutes -no evidence of acute ME, -patient has a history of COPD but her ABGs did not show hypercapnia -CTA chest with no evidence of PE or dissection -hemodynamically stable -status post target temperature management I reviewed her records obtained from [facility] where patient was admitted in September of this year with ?cardiac arrest her echocardiogram had a similar findings at at that time the form of 60-65% EF aortic stenosis AI and PH. Patient also had AFib and underwent ablation later in the course. Will discuss with Cardiology -Echocardiogram 1. Complete two-dimensional, color flow and Doppler transthoracic echocardiogram is performed. 2. Strain analysis performed. 3. Left ventricular chamber dimension is normal. 4. Left ventricular systolic function is normal, estimated at 65-70%. 5. There is mildly increased left ventricular wall thickness. 6. The left ventricular diastolic function is normal. 7. Global longitudinal strain is normal at -22 %. 8. Left atrial chamber dimension is moderately enlarged. 9. There is moderate aortic valve stenosis with a peak velocity of 258 cm/s, mean gradient of 15 mmHg, and aortic valve area of 1.5 cm2. 10. There is moderate to severe aortic valve regurgitation. 11. There is moderate aortic valve calcification. 12. There is moderate mitral valve regurgitation. 13. There is mild tricuspid valve regurgitation. 14. Severe pulmonary hypertension, estimated pulmonary arterial systolic pressure is 60 mmHg. (2) Anoxic brain injury: Code(s): G93.1 - Anoxic brain damage, not elsewhere classified Status: Acute Assessment and Plan: - status post target temperature management -CT scan of the brain did not show any acute intracranial abnormality, chronic left parietal lobe infarction and chronic age-related findings -appreciate Neurology evaluation and recommendations - continue to hold propofol as much as possible -EEG 03/03 Abnormal record due to the presence of diffuse low-voltage beta activity without any change throughout the tracing and also with no evidence of the seizure-like activity .clinical correlation recommended Repeat head CT 10/7 showed sinusitis and no other change -there has been no significant improvement in her mental status over last few days (3) Myoclonic jerking: Code(s): G25.3 - Myoclonus Status: Acute Assessment and Plan: likely secondary to anoxic brain injury -continue Keppra, -continue to monitor -also often and on propofol (4) Acute respiratory failure with hypoxia: Code(s): J96.01 - Acute respiratory failure with hypoxia Status: Acute Assessment and Plan: Acute respiratory failure due to cardiac arrest, -intubated in the field on 03/01/2021 -on CMV mode of ventilation, peep of 5, and 30% FiO2. -chest x-ray and ABGs reviewed, -continue bronchodilators given history of COPD - her vent weaning will depend on her neurological improvement -will discuss with family during tracheostomy and PEG tube placement (5) Sinusitis: Code(s): J32.9 - Chronic sinusitis, unspecified Status: Acute Assessment and Plan: Patient was having small amount of purulent discharge coming from nostrils and also had sinusitis on CT scan She does not have NG but has OG and endotracheal tube White count has increased and patient is now febrile Continue IV vancomycin and IV Zosyn. Sputum and blood cultures are negative as of now She does not have a Galo and has a urostomy I do
[2021-03-10 12:22] LABS: Glucose Point of Care 190 mg/dl (65-105)
[2021-03-10] MEDS: NOREPINEPHRINE 8 MG/D5W 250 ML 8 MG/250 ML BAG 9.38 MG IV CONT (13:15)
--- NOTE | 2021-03-10 13:48 | PM.IMPN ---
Progress Note: A&P Additional Plan Anoxic brain injury. Neurology and ICU rounding. Continue Keppra 500 mg IV q.12 hours for myoclonic jerks. 03/04/2021: EEG: Abnormal record due to the presence of diffuse low-voltage beta activity without any change throughout the tracing and also with no evidence of the seizure-like activity .clinical correlation recommended. Icu has spoken to family about poor prognosis. Pneumonia. DuoNeb q.6 hours plus Zosyn 3.375 g IV q.6 hours plus vancomycin 1250 mg IV q.18 hours Sinusitis. Zosyn 3.375 g IV q.6 hours Epistaxis. I appreciate otolaryngology evaluate the patient History of bladder cancer, status post ileal conduit placement Paroxysmal atrial fibrillation, status post cardiac ablation. Lovenox 85 mg subcutaneously q.12 hours plus metoprolol 25 mg NG q.12 hours plus IV amiodarone drip COPD Depression Hyperglycemia, likely due to stress reaction and/or hydrocortisone therapy. Will check fingerstick glucose q.6 hours and provide insulin sliding scale plus Lantus 30 units subcutaneously daily Hypertriglyceridemia Rheumatoid arthritis. Hydrocortisone 20 mg IV daily Moderate aortic stenosis Moderate to severe aortic regurgitation Moderate mitral regurgitation Severe pulmonary hypertension Anemia with borderline iron deficiency. Will monitor hemoglobin intermittently Acute renal insufficiency resolved Marijuana use Hypokalemia. Monitor potassium levels intermittently and supplements as necessary Transaminitis. Will monitor LFTs periodically with CMP GI prophylaxis. Protonix 40 mg IV daily Subjective Date/time seen: 03/10/21 13:48 Interval history: 60-year-old female with past medical history significant for bladder cancer status post ileal conduit placement, atrial fibrillation, sinus node ablation, cardiac arrest. Admtted to icu with cardiac arrest and anoxic brain injury. Review of Systems Review of Systems: All systems reviewed & are unremarkable except as noted in HPI and below Exam Const: General: other (Pt is intubated and on sedation in icu ) HENMT: Head: normal to inspection Cardio: Rate: regular rate Rhythm: regular rhythm GI: Inspection: normal to inspection GI Palp: No abdominal tenderness, No Guarding due to palpation present (GI) and No Hepatomegaly present Auscultation: normal bowel sounds Neuro: General: oriented to person Objective Data Vital Signs Vital Signs: Vital Signs - 24 hr 03/09/21 14:00 03/09/21 16:00 03/09/21 16:50 Temperature Pulse Rate 92 110 H 108 H Respiratory Rate 22 H 20 Blood Pressure 95/65 L 104/67 Pulse Oximetry 100 100 100 03/09/21 18:00 03/09/21 18:44 03/09/21 19:00 Temperature Pulse Rate 108 H 111 H 112 H Respiratory Rate 18 Blood Pressure 95/60 L Pulse Oximetry 100 03/09/21 20:00 03/09/21 20:06 03/09/21 20:26 Temperature 37.5 C Pulse Rate 110 H 105 H 106 H Respiratory Rate 33 H Blood Pressure 109/67 Pulse Oximetry 100 100 03/09/21 22:00 03/09/21 23:16 03/09/21 23:32 Temperature Pulse Rate 99 86 99 Respiratory Rate 20 20 Blood Pressure 106/66 Pulse Oximetry 100 100 100 03/10/21 00:00 03/10/21 00:37 03/10/21 02:00 Temperature 38.7 C H 37.4 C Pulse Rate 99 88 114 H Respiratory Rate 23 H 24 H Blood Pressure 100/71 100/71 111/71 Pulse Oximetry 100 100 03/10/21 02:37 03/10/21 03:58 03/10/21 04:00 Temperature 37.1 C Pulse Rate 94 94 109 H Respiratory Rate 24 H 21 H Blood Pressure 119/48 L Pulse Oximetry 100 100 100 03/10/21 04:49 03/10/21 06:00 03/10/21 06:08 Temperature Pulse Rate 111 H 108 H 103 H Respiratory Rate 20 Blood Pressure 93/72 L 93/72 L Pulse Oximetry 100 99 03/10/21 08:00 03/10/21 08:10 03/10/21 09:35 Temperature 36.8 C Pulse Rate 102 H 101 H 102 H Respiratory Rate 22 H Blood Pressure 105/71 Pulse Oximetry 100 100 03/10/21 10:00 03/10/21 12:00 Temperature 37.2 C Pulse Rate 85 97
[2021-03-10 16:23] LABS: Glucose Point of Care 214 mg/dl (65-105)
[2021-03-10 20:52] LABS: Glucose Point of Care 211 mg/dl (65-105)
[2021-03-11] VITALS (30 sets, daily range): BP systolic 101–132; BP diastolic 9–95; PULSE 63–128; RESP 18–25; TEMP 36.4–37.1; O2SAT 99–100
[2021-03-11 00:34] LABS: Glucose Point of Care 207 mg/dl (65-105)
[2021-03-11] MEDS: AMIODARONE 360 MG/D5W 200 ML 360 MG/200 ML BAG 33.33 MG IV CONT ×3 (00:34→11:55)
[2021-03-11] MEDS: INSULIN ASPART (*BKC) 100 UNITS/ML SUB-Q ×4 (00:35→20:01)
[2021-03-11 05:06] LABS: Alveolar/Arterial O2 Gradient 89.8 mmHg; Base Excess ABG 3.2 mEq/l (+/-2.0); Carboxyhemoglobin 0.5 % THb (0-2.0); Fractional Inspired Oxygen 30 %; HCO3 ABG 25.6 mEq/l (22.0-26.0); Methemoglobin ABG 0.1 %THb (0-1.5); Oxygen Content ABG 20.9 %vol (16.0-22.0); Oxygen Saturation ABG 97.3 % (95.0-100.0); Oxyhemoglobin 95.6 % THb (90.0-100.0); PCO2 ABG 32.7 mmHg (35.0-45.0); PO2 ABG 85.7 mmHg (80.0-100.0); PO2 FiO2 Ratio Arterial Blood 2.86 %; Reduced Hemoglobin 3.8 %THb (0-5.0); Total Hemoglobin 15.5 g/dL (12.0-18.0)
[2021-03-11 05:09] LABS: Device VENTILATOR; Site Drawn RIGHT RADIAL; pH ABG 7.511 (7.350-7.450)
[2021-03-11 05:10] LABS: Arterial Blood Gas PEEP 5 cmH2O; Arterial Blood Gas Tidal Volume 380 ml; Arterial Blood Gas Vent Mode CMV; Arterial Blood Gas Ventilator rate 18 /MIN
[2021-03-11 05:17] LABS: Hematocrit 30.2 % (37.0-47.0); Hemoglobin 9.6 g/dL (12.0-15.0); Mean Corpuscular HGB Conc 31.8 g/dl (32-36); Mean Corpuscular Hemoglobin 28.5 pg (26-34); Mean Corpuscular Volume 89.6 fl (80-100); Mean Platelet Volume 11.3 fl (7.4-10.4); Platelet Count Result 200 k/mm3 (150-375); Red Blood Count 3.37 M/mm3 (4.2-5.4); Red Cell Distribution Width 15.5 % (11.5-14.5)
[2021-03-11 05:26] LABS: Alanine Aminotransferase 131 U/L (4-35); Alkaline Phosphatase 70 U/L (38-126); Anion Gap 7 mmol/L (8-16); Aspartate Amino Transferase 52 U/L (14-36); Bilirubin,Total 0.3 mg/dL (0.2-1.3); Blood Urea Nitrogen 25 mg/dL (7-17); Calcium 8.8 mg/dL (8.4-10.2); Carbon Dioxide 29 mmol/L (22-30); Chloride 102 mmol/L (98-107); Estimated CRCL calculation 67 ml/min; Estimated Glomerular Filt Rate > 60; Glucose 184 mg/dL (65-110); Magnesium 1.7 mg/dL (1.6-2.3); Potassium 3.2 mmol/L (3.4-5.0); Sodium 138 mmol/L (137-145)
[2021-03-11] MEDS: CENTRAL LINE FLUSH 10 ML IV PUSH ×3 (05:26→20:03)
[2021-03-11 05:34] LABS: Glucose Point of Care 165 mg/dl (65-105)
[2021-03-11] MEDS: levETIRAcetam 500MG/NACL 100ML 500 MG/100 ML BAG 400 MG IVPB ×2 (06:03→19:51)
[2021-03-11 07:29] LABS: Glucose Point of Care 150 mg/dl (65-105)
[2021-03-11] MEDS: MAGNESIUM SULF 2 GM/WATER 50ML 2 GM/50 ML BAG IVPB (07:49)
[2021-03-11] MEDS: POTASSIUM CHLORIDE 20 MEQ PACKET (FOR LIQUID) 40 MEQ PO (07:49)
[2021-03-11] MEDS: ARTIFICIAL TEARS OPHTH SOLN 15 ML BOTTLE 1 DROP EACH EYE ×2 (07:50→20:00)
[2021-03-11] MEDS: HYDROCORTISONE SODIUM SUCCINATE 100 MG/2 ML VIAL 20 MG IV PUSH (07:50)
[2021-03-11] MEDS: MINERAL OIL/WHITE PETROLATUM OINTMENT 1 APPLIC EACH EYE ×2 (07:51→20:01)
[2021-03-11] MEDS: PANTOPRAZOLE SODIUM IV 40 MG VIAL IV PUSH (07:51)
[2021-03-11] MEDS: METOPROLOL TARTRATE 25 MG TABLET PO ×2 (07:51→20:02)
[2021-03-11] MEDS: INSULIN GLARGINE (*BKC) 100 UNITS/ML 30 UNITS SUB-Q (08:03)
--- NOTE | 2021-03-11 08:43 | WPDINTPN ---
Progress Note: A&P Assessment and Plan (1) Cardiac arrest: Code(s): I46.9 - Cardiac arrest, cause unspecified Status: Acute Assessment and Plan: Patient was asystole and PEA arrest of unknown etiology, patient is on sotalol but there is no evidence of prolonged QT intervals, EKGs did not show any torsades of ventricular arrhythmias. According the ER physician's patient was down for about 25 minutes -no evidence of acute [place], -patient has a history of COPD but her ABGs did not show hypercapnia -CTA chest with no evidence of PE or dissection -hemodynamically stable -status post target temperature management Records were reviewed which were obtained from [facility] where patient was admitted in September of this year with ?cardiac arrest her echocardiogram had a similar findings at at that time the form of 60-65% EF aortic stenosis AI and PH. Patient also had AFib and underwent ablation later in the course. Will discuss with Cardiology -Echocardiogram 1. Complete two-dimensional, color flow and Doppler transthoracic echocardiogram is performed. 2. Strain analysis performed. 3. Left ventricular chamber dimension is normal. 4. Left ventricular systolic function is normal, estimated at 65-70%. 5. There is mildly increased left ventricular wall thickness. 6. The left ventricular diastolic function is normal. 7. Global longitudinal strain is normal at -22 %. 8. Left atrial chamber dimension is moderately enlarged. 9. There is moderate aortic valve stenosis with a peak velocity of 258 cm/s, mean gradient of 15 mmHg, and aortic valve area of 1.5 cm2. 10. There is moderate to severe aortic valve regurgitation. 11. There is moderate aortic valve calcification. 12. There is moderate mitral valve regurgitation. 13. There is mild tricuspid valve regurgitation. 14. Severe pulmonary hypertension, estimated pulmonary arterial systolic pressure is 60 mmHg. (2) Anoxic brain injury: Code(s): G93.1 - Anoxic brain damage, not elsewhere classified Status: Acute Assessment and Plan: - status post target temperature management -CT scan of the brain did not show any acute intracranial abnormality, chronic left parietal lobe infarction and chronic age-related findings -appreciate Neurology evaluation and recommendations - continue to hold propofol as much as possible -EEG 03/03 Abnormal record due to the presence of diffuse low-voltage beta activity without any change throughout the tracing and also with no evidence of the seizure-like activity .clinical correlation recommended Repeat head CT 03/05 showed sinusitis and no other change -there has been no significant improvement in her mental status despite patient being off all sedation -will repeat EEG and discuss with Neurology (3) Myoclonic jerking: Code(s): G25.3 - Myoclonus Status: Acute Assessment and Plan: likely secondary to anoxic brain injury -continue Keppra, -continue to monitor -also often and on propofol (4) Acute respiratory failure with hypoxia: Code(s): J96.01 - Acute respiratory failure with hypoxia Status: Acute Assessment and Plan: Acute respiratory failure due to cardiac arrest, -intubated in the field on 03/01/2021 -on CMV mode of ventilation, peep of 5, and 30% FiO2. -chest x-ray and ABGs reviewed, -continue bronchodilators given history of COPD - her vent weaning will depend on her neurological improvement -will discuss with family during tracheostomy and PEG tube placement (5) Sinusitis: Code(s): J32.9 - Chronic sinusitis, unspecified Status: Acute Assessment and Plan: Patient was having small amount of purulent discharge coming from nostrils and also had sinusitis on CT scan She does not have NG but has OG and endotracheal tube White count improving Continue IV vancomycin (initiated on 05/10/2021) and IV Zosy (initiated on 03/07/2021) Sputum
--- NOTE | 2021-03-11 08:57 | PC.NURSE ---
Rhino rocket removed per Dr. Samym sandra
--- NOTE | 2021-03-11 10:25 | WPDNEUROLOGY ---
Neurology EEG Report General Information Date of Study: 03/11/21 TEST eeg DIAGNOSIS anoxic encephalopathy CONDITION OF RECORDING coma toes EEG NUMBER [id number] CLINICAL HISTORY this is a repeat EEG on a patient that came in last week following a cardiac arrest. Has been off sedation for the last 4 days with no change in the neurological examination and remains unresponsive EEG DESCRIPTION whole record consists of no brain activity admixed with multiple muscle and eye movement artifacts. Obviously hyperventilation not done and photic stimulation not done non paroxysmal nonfocal nonlateralizing IMPRESSION abnormal record due to the absence of cortical activity. Multiple muscle artifacts are noted throughout the tracing
[2021-03-11 11:50] LABS: Glucose Point of Care 214 mg/dl (65-105)
--- NOTE | 2021-03-11 12:13 | PCDIET ---
ICU Rounding Note: Patient tolerating Vital 1.2 at 60mL/hr goal rate with 200mL water flush every 4 hours. Last recorded weight is 89.6kg which is stable with last review. Bowel Motility: BM x 1 today. Labs Reviewed: WBC (17.0), RBC (3.37), Hgb (9.6), Hct (30.2), Glu (184), BUN (25), K (3.2), Alb (3.0) Meds Noted: Magnesium Sulfate, Zosyn, KCl, Lopressor, Vancomycin, Keppra, Protonix, Amiodarone, Lantus, Xopenex Additional Notes: No documented skin breakdown. Following daily in ICU rounds. Assessing/reassessing every Tuesday/Tuesday.
--- NOTE | 2021-03-11 13:16 | PM.IMPN ---
Progress Note: A&P Assessment and Plan (1) Hyperglycemia: Code(s): R73.9 - Hyperglycemia, unspecified Status: Acute Assessment and Plan: SEE BELOW (2) Epistaxis: Code(s): R04.0 - Epistaxis Status: Acute (3) Anoxic brain injury: Code(s): G93.1 - Anoxic brain damage, not elsewhere classified Status: Acute (4) DVT prophylaxis: Code(s): Z29.9 - Encounter for prophylactic measures, unspecified Status: Acute (5) Paroxysmal atrial fibrillation: Code(s): I48.0 - Paroxysmal atrial fibrillation Status: Acute (6) Chronic kidney disease: Code(s): N18.9 - Chronic kidney disease, unspecified Status: Acute (7) Elevated troponin I level: Code(s): R77.8 - Other specified abnormalities of plasma proteins Status: Acute (8) Elevated LFTs: Code(s): R79.89 - Other specified abnormal findings of blood chemistry Status: Acute (9) Myoclonic jerking: Code(s): G25.3 - Myoclonus Status: Acute (10) Acute respiratory failure with hypoxia: Code(s): J96.01 - Acute respiratory failure with hypoxia Status: Acute (11) Cardiac arrest: Code(s): I46.9 - Cardiac arrest, cause unspecified Status: Acute Additional Plan Anoxic brain injury. Neurology and ICU rounding. Continue Keppra 500 mg IV q.12 hours for myoclonic jerks. 03/04/2021: EEG: Abnormal record due to the presence of diffuse low-voltage beta activity without any change throughout the tracing and also with no evidence of the seizure-like activity .clinical correlation recommended. Icu has spoken to family about poor prognosis. PT HAD EEG today 03/11/2021 Pneumonia. DuoNeb q.6 hours plus Zosyn 3.375 g IV q.6 hours plus vancomycin 1250 mg IV q.18 hours Sinusitis. Zosyn 3.375 g IV q.6 hours Epistaxis. I appreciate otolaryngology evaluate the patient History of bladder cancer, status post ileal conduit placement Paroxysmal atrial fibrillation, status post cardiac ablation. Lovenox 85 mg subcutaneously q.12 hours plus metoprolol 25 mg NG q.12 hours plus IV amiodarone drip COPD Depression Hyperglycemia, likely due to stress reaction and/or hydrocortisone therapy. Will check fingerstick glucose q.6 hours and provide insulin sliding scale plus Lantus 30 units subcutaneously daily Hypertriglyceridemia Rheumatoid arthritis. Hydrocortisone 20 mg IV daily Moderate aortic stenosis Moderate to severe aortic regurgitation Moderate mitral regurgitation Severe pulmonary hypertension Anemia with borderline iron deficiency. Will monitor hemoglobin intermittently Acute renal insufficiency resolved Marijuana use Hypokalemia. Monitor potassium levels intermittently and supplements as necessary Transaminitis. Will monitor LFTs periodically with CMP GI prophylaxis. Protonix 40 mg IV daily Subjective Date/time seen: 03/11/21 13:16 Interval history: 60-year-old female with past medical history significant for bladder cancer status post ileal conduit placement, atrial fibrillation, sinus node ablation, cardiac arrest. Admtted to icu with cardiac arrest and anoxic brain injury. poor prognosis no change in status. pt had EEG today. Review of Systems Review of Systems: ROS unobtainable: Yes unobtainable due to endotracheal tube and unobtainable due to medical condition (On ventilator support) Exam Const: General: other (Pt is intubated and on sedation in icu ) HENMT: Head: normal to inspection Cardio: Rate: regular rate Rhythm: regular rhythm GI: Inspection: normal to inspection Auscultation: normal bowel sounds Objective Data Vital Signs Vital Signs: Vital Signs - 24 hr 03/10/21 13:55 03/10/21 14:00 03/10/21 16:00 Temperature 36.6 C Pulse Rate 89 102 H 104 H Respiratory Rate 20 18 Blood Pressure 101/56 L 110/63 Pulse Oximetry 100 100 100 03/10/21 17:00 03/10/21 18:00 03/10/21 20:00 Temperature
[2021-03-11 16:12] LABS: Glucose Point of Care 222 mg/dl (65-105)
--- NOTE | 2021-03-11 17:43 | ECG_ITS ---
Measurements Intervals [place] Rate: 73 P: 53 IA: 122 QRS: 20 QRSD: 97 T: 61 QT: 431 QTc: 476 Interpretive Statements SINUS RHYTHM BASELINE WANDER- II, II, AVR, AVL, AVF NORMAL ECG Electronically Signed On 03-12-2021 8:31:29 CDT by Uzair Shook D.O.
[2021-03-11] MEDS: AMIODARONE 360 MG/D5W 200 ML 360 MG/200 ML BAG 16.67 MG IV CONT (18:15)
--- NOTE | 2021-03-11 19:23 | PHAR ---
Patient's keppra to be administered late due to no access to medication at thia time. Pharmacy contacted.
[2021-03-11 20:08] LABS: Glucose Point of Care 204 mg/dl (65-105)
[2021-03-11 23:39] LABS: Glucose Point of Care 233 mg/dl (65-105)
[2021-03-12] VITALS (24 sets, daily range): BP systolic 95–134; BP diastolic 53–71; PULSE 60–79; RESP 18–24; TEMP 36.4–36.9; O2SAT 100
[2021-03-12] MEDS: INSULIN ASPART (*BKC) 100 UNITS/ML SUB-Q ×3 (00:32→16:28)
[2021-03-12 04:12] LABS: Glucose Point of Care 118 mg/dl (65-105)
[2021-03-12] MEDS: CENTRAL LINE FLUSH 10 ML IV PUSH ×3 (05:01→20:20)
[2021-03-12] MEDS: levETIRAcetam 500MG/NACL 100ML 500 MG/100 ML BAG 400 MG IVPB ×2 (05:01→18:14)
[2021-03-12] MEDS: AMIODARONE 360 MG/D5W 200 ML 360 MG/200 ML BAG 16.67 MG IV CONT (05:02)
[2021-03-12 05:04] LABS: Estimated CRCL calculation 75 ml/min; Estimated Glomerular Filt Rate > 60
[2021-03-12 05:23] LABS: Alveolar/Arterial O2 Gradient 98.4 mmHg; Base Excess ABG 2.5 mEq/l (+/-2.0); Carboxyhemoglobin 0.3 % THb (0-2.0); Fractional Inspired Oxygen 30 %; HCO3 ABG 24.6 mEq/l (22.0-26.0); Methemoglobin ABG 0.3 %THb (0-1.5); Oxygen Content ABG 12.7 %vol (16.0-22.0); Oxygen Saturation ABG 97.3 % (95.0-100.0); Oxyhemoglobin 95.1 % THb (90.0-100.0); PO2 ABG 81.4 mmHg (80.0-100.0); PO2 FiO2 Ratio Arterial Blood 2.71 %; Reduced Hemoglobin 4.3 %THb (0-5.0); Total Hemoglobin 9.4 g/dL (12.0-18.0)
[2021-03-12 05:24] LABS: Device VENTILATOR; Modified Allen's Test Pass; Site Drawn LEFT RADIAL; pH ABG 7.546 (7.350-7.450)
[2021-03-12 05:25] LABS: Arterial Blood Gas PEEP 5 cmH2O; Arterial Blood Gas Tidal Volume 380 ml; Arterial Blood Gas Vent Mode CMV; Arterial Blood Gas Ventilator rate 18 /MIN
[2021-03-12 05:34] LABS: Vancomycin Trough 19.2 ug/mL (10.0-20.0)
[2021-03-12 07:34] LABS: Glucose Point of Care 125 mg/dl (65-105)
[2021-03-12] MEDS: ARTIFICIAL TEARS OPHTH SOLN 15 ML BOTTLE 1 DROP EACH EYE ×2 (07:56→20:16)
[2021-03-12] MEDS: HYDROCORTISONE SODIUM SUCCINATE 100 MG/2 ML VIAL 20 MG IV PUSH (07:57)
[2021-03-12] MEDS: MINERAL OIL/WHITE PETROLATUM OINTMENT 1 APPLIC EACH EYE ×2 (07:57→20:17)
[2021-03-12] MEDS: PANTOPRAZOLE SODIUM IV 40 MG VIAL IV PUSH (08:00)
[2021-03-12] MEDS: METOPROLOL TARTRATE 25 MG TABLET PO ×2 (08:00→20:20)
[2021-03-12 09:53] LABS: Vancomycin Trough 16.1 ug/mL (10.0-20.0)
[2021-03-12 11:22] LABS: Glucose Point of Care 201 mg/dl (65-105)
[2021-03-12] MEDS: INSULIN GLARGINE (*BKC) 100 UNITS/ML 30 UNITS SUB-Q (11:25)
--- NOTE | 2021-03-12 11:49 | WPDINTPN ---
Progress Note: A&P Assessment and Plan (1) Cardiac arrest: Code(s): I46.9 - Cardiac arrest, cause unspecified Status: Acute Assessment and Plan: Patient was asystole and PEA arrest of unknown etiology, patient is on sotalol but there is no evidence of prolonged QT intervals, EKGs did not show any torsades of ventricular arrhythmias. According the ER physician's patient was down for about 25 minutes -no evidence of acute [place], -patient has a history of COPD but her ABGs did not show hypercapnia -CTA chest with no evidence of PE or dissection -hemodynamically stable -status post target temperature management Records were reviewed which were obtained from [facility] where patient was admitted in September of this year with ?cardiac arrest her echocardiogram had a similar findings at at that time the form of 60-65% EF aortic stenosis AI and PH. Patient also had AFib and underwent ablation later in the course. Will discuss with Cardiology -Echocardiogram 1. Complete two-dimensional, color flow and Doppler transthoracic echocardiogram is performed. 2. Strain analysis performed. 3. Left ventricular chamber dimension is normal. 4. Left ventricular systolic function is normal, estimated at 65-70%. 5. There is mildly increased left ventricular wall thickness. 6. The left ventricular diastolic function is normal. 7. Global longitudinal strain is normal at -22 %. 8. Left atrial chamber dimension is moderately enlarged. 9. There is moderate aortic valve stenosis with a peak velocity of 258 cm/s, mean gradient of 15 mmHg, and aortic valve area of 1.5 cm2. 10. There is moderate to severe aortic valve regurgitation. 11. There is moderate aortic valve calcification. 12. There is moderate mitral valve regurgitation. 13. There is mild tricuspid valve regurgitation. 14. Severe pulmonary hypertension, estimated pulmonary arterial systolic pressure is 60 mmHg. (2) Anoxic brain injury: Code(s): G93.1 - Anoxic brain damage, not elsewhere classified Status: Acute Assessment and Plan: - status post target temperature management -CT scan of the brain did not show any acute intracranial abnormality, chronic left parietal lobe infarction and chronic age-related findings -appreciate Neurology evaluation and recommendations - continue to hold propofol as much as possible -EEG 03/03 Abnormal record due to the presence of diffuse low-voltage beta activity without any change throughout the tracing and also with no evidence of the seizure-like activity .clinical correlation recommended Repeat head CT 03/05 showed sinusitis and no other change -there has been no significant improvement in her mental status despite patient being off all sedation - Repeat EEG on 03/11/2021 showed abnormal record due to the absence of cerebral activity, multiple muscle artifacts are noted throughout the tracing. -I discussed with neurologist, who stated that the EEG was pretty ominous, no cerebral activity was present. Prognosis is very poor (3) Myoclonic jerking: Code(s): G25.3 - Myoclonus Status: Acute Assessment and Plan: likely secondary to anoxic brain injury -continue Keppra, -continue to monitor -also often and on propofol (4) Acute respiratory failure with hypoxia: Code(s): J96.01 - Acute respiratory failure with hypoxia Status: Acute Assessment and Plan: Acute respiratory failure due to cardiac arrest, -intubated in the field on 03/01/2021 -on CMV mode of ventilation, peep of 5, and 30% FiO2. -chest x-ray and ABGs reviewed, -continue bronchodilators given history of COPD - her vent weaning will depend on her neurological improvement -will discuss with family during tracheostomy and PEG tube placement (5) Sinusitis: Code(s): J32.9 - Chronic sinusitis, unspecified Status: Acute Assessment and Plan: Patient was having small amount
--- NOTE | 2021-03-12 11:51 | PCDIET ---
ICU Rounding Note: Patient tolerating Vital 1.2 at 60mL/hr goal rate with 200mL water flush every 4 hours. Last recorded weight is 89.1kg which is slightly decreased from last review. Bowel Motility: Last documented BM on 03/11/21 x 1. Labs Reviewed: Glu (125) Meds Noted: Protonix, Zosyn, Keppra, Lopressor, Lantus, Vancomycin, Amiodarone, Solu Cortef, Novolog Additional Notes: No documented skin breakdown. Following daily in ICU rounds. Assessing/reassessing every Tuesday/Tuesday.
[2021-03-12 16:15] LABS: IFOB Positive Control Positive; Immunochemical Fecal Occult Bl Positive (N)
[2021-03-12 16:25] LABS: Glucose Point of Care 218 mg/dl (65-105)
[2021-03-12 20:01] LABS: Glucose Point of Care 151 mg/dl (65-105)
--- NOTE | 2021-03-12 21:01 | PM.IMPN ---
Progress Note: A&P Assessment and Plan (1) Cardiac arrest: Code(s): I46.9 - Cardiac arrest, cause unspecified Status: Acute Assessment and Plan: Patient had asystole and PEA arrest of unknown etiology. Patient was on sotalol but there is no evidence of QT prolongation. Patient's down time was approximately 25 minutes. No evidence of acute [place]. patient does have history of COPD but no evidence of hypercarbia on initial ABG. CT of the chest with no evidence of PE or dissection. Patient did have echocardiogram that demonstrated EF 65-70%, normal diastolic function, global longitudinal strain -22, moderate left atrial enlargement, moderate aortic valve stenosis, moderate to severe aortic valve regurgitation, moderate mitral valve regurgitation, severe pulmonary hypertension with RVSP of 60 Patient underwent targeted temperature management is the has anoxic brain injury. (2) Anoxic brain injury: Code(s): G93.1 - Anoxic brain damage, not elsewhere classified Status: Acute Assessment and Plan: CT demonstrated no acute intercranial process. Patient had EEG 03/03/2021 demonstrating diffuse low-voltage beta activity without change her tracing and no evidence of seizure-like activity. Repeat CT 03/05/2021 showed sinusitis. Sedation was discontinued and patient remains unresponsive. Patient still is breathing over the vent and has corneal reflexes. Repeat EEG 03/11/2021 demonstrated abnormal recording with absence of cerebral activity with him a double muscle artifacts noted throughout the tracing. The overall EEG recording was ominous and prognosis is dire. (3) Acute respiratory failure with hypoxia: Code(s): J96.01 - Acute respiratory failure with hypoxia Status: Acute Assessment and Plan: Patient intubated 03/01/2021 due to cardiac arrest patient remains on a ventilator and is over breathing the vent. (4) Myoclonic jerking: Code(s): G25.3 - Myoclonus Status: Acute Assessment and Plan: Due to anoxic brain injury. Patient is on Keppra. (5) Hyperglycemia: Code(s): R73.9 - Hyperglycemia, unspecified Status: Acute Assessment and Plan: Continues 6 hour sliding scale insulin (6) Epistaxis: Code(s): R04.0 - Epistaxis Status: Acute Assessment and Plan: Resolved (7) Sinusitis: Qualifiers: Sinusitis location: unspecified location Chronicity: unspecified Qualified Code(s): J32.9 - Chronic sinusitis, unspecified Code(s): J32.9 - Chronic sinusitis, unspecified Status: Acute Assessment and Plan: Patient remains on Zosyn (03/07/2021) and vancomycin (03/10/2021) (8) Paroxysmal atrial fibrillation: Code(s): I48.0 - Paroxysmal atrial fibrillation Status: Acute Assessment and Plan: Patient remains on amiodarone infusion. She is also on IV and p.o. metoprolol Lovenox and aspirin discontinued due to epistaxis Cardiology has been following with the patient. Subjective Date/time seen: 03/12/21 10:01 Interval history: Eeg 03/11/2021 demonstrated absence of cerebral activity. Prognosis extremely poor. Review of Systems Review of Systems: ROS unobtainable: Yes unobtainable due to endotracheal tube Exam Narrative: PHYSICAL EXAM: WEIGHT 89.1 kg BMI 29.9 General: Overweight, intubated HEENT: Eye deviation to the left, ET tube and OG present, head is normocephalic atraumatic, drooling Respiratory: Equal breath sounds, ventilator Cardiovascular: Regular rate, probable peripheral pulses Gastrointestinal: Soft, distended, positive bowel sounds, urostomy in place Skin: Normal temperature is hot, non jaundice Musculoskeletal: Generalized anasarca, no cyanosis Neurological: Eye deviation to the left, rhythmic blinking Psychiatric: Unable to assess due to medical condition : Deferred Hematologic/lymphatic: Dried blood at the lips, no petechiae Objectiv
[2021-03-12 23:49] LABS: Glucose Point of Care 173 mg/dl (65-105)
[2021-03-13] VITALS (24 sets, daily range): BP systolic 92–136; BP diastolic 43–79; PULSE 63–80; RESP 18–26; TEMP 36.6–37; O2SAT 100
[2021-03-13 05:05] LABS: Alveolar/Arterial O2 Gradient 87.9 mmHg; Base Excess ABG 1.4 mEq/l (+/-2.0); Carboxyhemoglobin 0.3 % THb (0-2.0); Fractional Inspired Oxygen 30 %; HCO3 ABG 24.6 mEq/l (22.0-26.0); Methemoglobin ABG 0.2 %THb (0-1.5); Oxygen Saturation ABG 97.2 % (95.0-100.0); Oxyhemoglobin 95.1 % THb (90.0-100.0); PCO2 ABG 33.6 mmHg (35.0-45.0); PO2 ABG 86.5 mmHg (80.0-100.0); PO2 FiO2 Ratio Arterial Blood 2.88 %; Reduced Hemoglobin 4.4 %THb (0-5.0); Total Hemoglobin 10.4 g/dL (12.0-18.0); pH ABG 7.482 (7.350-7.450)
[2021-03-13 05:06] LABS: Device VENTILATOR; Modified Allen's Test Pass; Site Drawn LEFT RADIAL
[2021-03-13 05:07] LABS: Arterial Blood Gas PEEP 5 cmH2O; Arterial Blood Gas Tidal Volume 380 ml; Arterial Blood Gas Vent Mode CMV; Arterial Blood Gas Ventilator rate 18 /MIN
[2021-03-13] MEDS: CENTRAL LINE FLUSH 10 ML IV PUSH ×3 (05:11→21:49)
[2021-03-13 05:14] LABS: Glucose Point of Care 196 mg/dl (65-105)
[2021-03-13 05:34] LABS: Basophils Absolute Auto 0.1 K/mm3 (0.0-0.1); Basophils Percent Auto 0.5 % (0.2-1.2); Eosinophils Absolute Auto 0.1 K/mm3 (0-0.3); Eosinophils Percent Auto 0.8 % (0-4.4); Hematocrit 27.6 % (37.0-47.0); Hemoglobin 8.7 g/dL (12.0-15.0); Immature Granulocyte Absolute 0.63 K/mm3 (0.00-0.031); Immature Granulocyte Percent A 4.2 % (0-0.5); Lymphocytes Absolute Auto 1.19 K/mm3 (0.9-3.2); Mean Corpuscular HGB Conc 31.5 g/dl (32-36); Mean Corpuscular Hemoglobin 28.2 pg (26-34); Mean Corpuscular Volume 89.6 fl (80-100); Mean Platelet Volume 11.4 fl (7.4-10.4); Monocytes Absolute Auto 0.8 K/mm3 (0.1-0.6); Monocytes Percent Auto 5.4 % (2.6-8.5); Neutrophils Absolute Auto 12.1 K/mm3 (1.3-6.7); Neutrophils Percent Auto 81.1 % (45.5-73.1); Nucleated Red Blood Cells Perc 0.1 % (0.0-0.2); Platelet Count Result 225 k/mm3 (150-375); Red Blood Count 3.08 M/mm3 (4.2-5.4); Red Cell Distribution Width 15.7 % (11.5-14.5); White Blood Count 14.9 K/mm3 (4.5-10.0)
[2021-03-13] MEDS: levETIRAcetam 500MG/NACL 100ML 500 MG/100 ML BAG 400 MG IVPB ×2 (05:54→17:07)
[2021-03-13 06:00] LABS: Anion Gap 7 mmol/L (8-16); Blood Urea Nitrogen 26 mg/dL (7-17); Calcium 8.7 mg/dL (8.4-10.2); Carbon Dioxide 26 mmol/L (22-30); Chloride 104 mmol/L (98-107); Estimated CRCL calculation 65 ml/min; Estimated Glomerular Filt Rate > 60; Glucose 214 mg/dL (65-110); Magnesium 1.8 mg/dL (1.6-2.3); Potassium 3.2 mmol/L (3.4-5.0); Sodium 137 mmol/L (137-145)
--- NOTE | 2021-03-13 08:29 | PM.IMPN ---
Progress Note: A&P Assessment and Plan (1) Cardiac arrest: Code(s): I46.9 - Cardiac arrest, cause unspecified Status: Acute Assessment and Plan: Patient had asystole and PEA arrest of unknown etiology. Patient was on sotalol but there is no evidence of QT prolongation. Patient's down time was approximately 25 minutes. No evidence of acute [place]. patient does have history of COPD but no evidence of hypercarbia on initial ABG. CT of the chest with no evidence of PE or dissection. Patient did have echocardiogram that demonstrated EF 65-70%, normal diastolic function, global longitudinal strain -22, moderate left atrial enlargement, moderate aortic valve stenosis, moderate to severe aortic valve regurgitation, moderate mitral valve regurgitation, severe pulmonary hypertension with RVSP of 60 Patient underwent target temperature management for her anoxic brain injury. Records were reviewed which were obtained from [facility] where patient was admitted in September of this year with ?cardiac arrest her echocardiogram had a similar findings at at that time the form of 60-65% EF aortic stenosis AI and PH. Patient also had AFib and underwent ablation later in the course. (2) Anoxic brain injury: Code(s): G93.1 - Anoxic brain damage, not elsewhere classified Status: Acute Assessment and Plan: CT demonstrated no acute intercranial process. Patient had EEG 03/03/2021 demonstrating diffuse low-voltage beta activity without change her tracing and no evidence of seizure-like activity. Repeat CT 03/05/2021 showed sinusitis. Sedation was discontinued and patient remains unresponsive. Patient still is breathing over the vent and has corneal reflexes. Repeat EEG 03/11/2021 demonstrated abnormal recording with absence of cerebral activity with him a double muscle artifacts noted throughout the tracing. The overall EEG recording was ominous and prognosis is dire. (3) Acute respiratory failure with hypoxia: Code(s): J96.01 - Acute respiratory failure with hypoxia Status: Acute Assessment and Plan: Patient intubated 03/01/2021 due to cardiac arrest patient remains on a ventilator and is breathing over the vent. (4) Myoclonic jerking: Code(s): G25.3 - Myoclonus Status: Acute Assessment and Plan: Likely related to anoxic brain injury. Patient is on Keppra. (5) Hyperglycemia: Code(s): R73.9 - Hyperglycemia, unspecified Status: Acute Assessment and Plan: Continues 6 hour sliding scale insulin (6) Epistaxis: Code(s): R04.0 - Epistaxis Status: Acute Assessment and Plan: Resolved (7) Sinusitis: Qualifiers: Chronicity: unspecified Sinusitis location: unspecified location Qualified Code(s): J32.9 - Chronic sinusitis, unspecified Code(s): J32.9 - Chronic sinusitis, unspecified Status: Acute Assessment and Plan: Patient remains on Zosyn (03/07/2021) and vancomycin (03/10/2021) (8) Paroxysmal atrial fibrillation: Code(s): I48.0 - Paroxysmal atrial fibrillation Status: Acute Assessment and Plan: Patient remains rate controlled on amiodarone infusion. She is also on IV and p.o. metoprolol Lovenox and aspirin discontinued due to epistaxis Cardiology has been following with the patient. Additional Plan Previously on stress dose hydrocortisone at this time as patient is on chronic low-dose prednisone at home. Currently tapered toward her home dose of prednisone. DVT prophylaxis -SCDx Stress ulcer prophylaxis - PPI Nutrition -tolerating tube feeds, will continue Code Status - Full Code Subjective Date/time seen: 03/13/21 08:29 Interval history: S: Patient remains intubated. Review of Systems Review of Systems: All systems reviewed & are unremarkable except as noted in HPI and below ROS unobtainable: Yes unobtainable due to endotracheal
[2021-03-13] MEDS: POTASSIUM CHLORIDE 20 MEQ PACKET (FOR LIQUID) 40 MEQ FEED TUBE (08:40)
[2021-03-13] MEDS: MAGNESIUM SULFATE 3GM/D5W100ML 3 GM/100 ML BAG IVPB (08:40)
[2021-03-13] MEDS: HYDROCORTISONE SODIUM SUCCINATE 100 MG/2 ML VIAL 20 MG IV PUSH (08:40)
[2021-03-13] MEDS: PANTOPRAZOLE SODIUM IV 40 MG VIAL IV PUSH (08:41)
[2021-03-13] MEDS: MINERAL OIL/WHITE PETROLATUM OINTMENT 1 APPLIC EACH EYE ×2 (08:41→21:47)
[2021-03-13] MEDS: ARTIFICIAL TEARS OPHTH SOLN 15 ML BOTTLE 1 DROP EACH EYE ×2 (08:41→21:48)
[2021-03-13] MEDS: METOPROLOL TARTRATE 25 MG TABLET PO ×2 (08:41→21:48)
[2021-03-13] MEDS: INSULIN GLARGINE (*BKC) 100 UNITS/ML 30 UNITS SUB-Q (08:54)
[2021-03-13 08:59] LABS: Glucose Point of Care 197 mg/dl (65-105)
--- NOTE | 2021-03-13 11:09 | PCDIET ---
Nutrition Follow-Up Complete: Nutrition Diagnosis: Inadequate oral intake related to oral intubation as evidenced by NPO status. Nutrition Goal: Patient to meet estimated nutritional needs. Goal met. Patient continues to tolerate Vital 1.2 at 60mL/hr with 200mL water flush every 4 hours. Last recorded weight is 82.1 kg which is down from last review. Bowel Motility: +BM today, per RN. Labs Reviewed: WBC (14.9), RBC (3.08), Hgb (8.7), Hct (27.6), Glu (214), K (3.2) Meds Noted: Protonix, Solu Cortef, Lantus, Zosyn, Keppra, Lopressor, KCl, Vancomycin, Magnesium Sulfate Additional Notes: Right breast abrasion documented; no pressure sores. Will continue to monitor with same goal. Nutrition Monitoring and Evaluation: Follow up every Tuesday/Tuesday.
--- NOTE | 2021-03-13 11:42 | WPDINTPN ---
Progress Note: A&P Assessment and Plan (1) Cardiac arrest: Code(s): I46.9 - Cardiac arrest, cause unspecified Status: Acute Assessment and Plan: Patient was asystole and PEA arrest of unknown etiology, patient is on sotalol but there is no evidence of prolonged QT intervals, EKGs did not show any torsades of ventricular arrhythmias. According the ER physician's patient was down for about 25 minutes -no evidence of acute [place], -patient has a history of COPD but her ABGs did not show hypercapnia -CTA chest with no evidence of PE or dissection -hemodynamically stable -status post target temperature management Records were reviewed which were obtained from [facility] where patient was admitted in September of this year with ?cardiac arrest her echocardiogram had a similar findings at at that time the form of 60-65% EF aortic stenosis AI and PH. Patient also had AFib and underwent ablation later in the course. Will discuss with Cardiology -Echocardiogram 1. Complete two-dimensional, color flow and Doppler transthoracic echocardiogram is performed. 2. Strain analysis performed. 3. Left ventricular chamber dimension is normal. 4. Left ventricular systolic function is normal, estimated at 65-70%. 5. There is mildly increased left ventricular wall thickness. 6. The left ventricular diastolic function is normal. 7. Global longitudinal strain is normal at -22 %. 8. Left atrial chamber dimension is moderately enlarged. 9. There is moderate aortic valve stenosis with a peak velocity of 258 cm/s, mean gradient of 15 mmHg, and aortic valve area of 1.5 cm2. 10. There is moderate to severe aortic valve regurgitation. 11. There is moderate aortic valve calcification. 12. There is moderate mitral valve regurgitation. 13. There is mild tricuspid valve regurgitation. 14. Severe pulmonary hypertension, estimated pulmonary arterial systolic pressure is 60 mmHg. (2) Anoxic brain injury: Code(s): G93.1 - Anoxic brain damage, not elsewhere classified Status: Acute Assessment and Plan: - status post target temperature management -CT scan of the brain did not show any acute intracranial abnormality, chronic left parietal lobe infarction and chronic age-related findings -appreciate Neurology evaluation and recommendations - continue to hold propofol as much as possible -EEG 03/03 Abnormal record due to the presence of diffuse low-voltage beta activity without any change throughout the tracing and also with no evidence of the seizure-like activity .clinical correlation recommended Repeat head CT 03/05 showed sinusitis and no other change -there has been no significant improvement in her mental status despite patient being off all sedation - Repeat EEG on 03/11/2021 showed abnormal record due to the absence of cerebral activity, multiple muscle artifacts are noted throughout the tracing. -I discussed with neurologist, who stated that the EEG was pretty ominous, no cerebral activity was present. Prognosis is very poor (3) Myoclonic jerking: Code(s): G25.3 - Myoclonus Status: Acute Assessment and Plan: likely secondary to anoxic brain injury -continue Keppra, -continue to monitor -also often and on propofol (4) Acute respiratory failure with hypoxia: Code(s): J96.01 - Acute respiratory failure with hypoxia Status: Acute Assessment and Plan: Acute respiratory failure due to cardiac arrest, -intubated in the field on 03/01/2021 -on CMV mode of ventilation, peep of 5, and 30% FiO2. -chest x-ray and ABGs reviewed, -continue bronchodilators given history of COPD - her vent weaning will depend on her neurological improvement -will discuss with family during tracheostomy and PEG tube placement (5) Sinusitis: Qualifiers: Sinusitis location: unspecified location Chronicity: unspecified Qualified Code(s): J32.9 - Chronic sinusitis
[2021-03-13 12:25] LABS: Glucose Point of Care 219 mg/dl (65-105)
[2021-03-13 12:41] LABS: Glucose Point of Care 217 mg/dl (65-105)
[2021-03-13] MEDS: INSULIN ASPART (*BKC) 100 UNITS/ML SUB-Q (12:42)
[2021-03-13 15:55] LABS: Glucose Point of Care 172 mg/dl (65-105)
[2021-03-13 21:57] LABS: Glucose Point of Care 90 mg/dl (65-105)
[2021-03-14] VITALS (22 sets, daily range): BP systolic 90–145; BP diastolic 44–77; PULSE 6–99; RESP 18–24; TEMP 36.3–36.7; O2SAT 100
[2021-03-14 01:13] LABS: Glucose Point of Care 123 mg/dl (65-105)
[2021-03-14 04:52] LABS: Alveolar/Arterial O2 Gradient 86.1 mmHg; Base Excess ABG 2.9 mEq/l (+/-2.0); Carboxyhemoglobin 0.3 % THb (0-2.0); Fractional Inspired Oxygen 30 %; HCO3 ABG 26.1 mEq/l (22.0-26.0); Methemoglobin ABG 0.2 %THb (0-1.5); Oxygen Content ABG 13.1 %vol (16.0-22.0); Oxygen Saturation ABG 97.3 % (95.0-100.0); PCO2 ABG 34.8 mmHg (35.0-45.0); PO2 ABG 86.9 mmHg (80.0-100.0); Reduced Hemoglobin 4.5 %THb (0-5.0); Total Hemoglobin 9.7 g/dL (12.0-18.0); pH ABG 7.493 (7.350-7.450)
[2021-03-14 04:53] LABS: Arterial Blood Gas Vent Mode CMV; Arterial Blood Gas Ventilator rate 18 /MIN; Device VENTILATOR; Modified Allen's Test Pass; Site Drawn RIGHT RADIAL
[2021-03-14 04:54] LABS: Arterial Blood Gas PEEP 5 cmH2O; Arterial Blood Gas Tidal Volume 380 ml
[2021-03-14 05:20] LABS: Basophils Absolute Auto 0.1 K/mm3 (0.0-0.1); Basophils Percent Auto 0.5 % (0.2-1.2); Eosinophils Absolute Auto 0.1 K/mm3 (0-0.3); Eosinophils Percent Auto 0.8 % (0-4.4); Hematocrit 28.5 % (37.0-47.0); Hemoglobin 8.7 g/dL (12.0-15.0); Immature Granulocyte Absolute 0.64 K/mm3 (0.00-0.031); Immature Granulocyte Percent A 4.4 % (0-0.5); Lymphocytes Absolute Auto 1.31 K/mm3 (0.9-3.2); Lymphocytes Percent Auto 9.1 % (18.3-44.2); Mean Corpuscular HGB Conc 30.5 g/dl (32-36); Mean Corpuscular Hemoglobin 28.4 pg (26-34); Mean Corpuscular Volume 93.1 fl (80-100); Mean Platelet Volume 10.7 fl (7.4-10.4); Monocytes Absolute Auto 0.8 K/mm3 (0.1-0.6); Monocytes Percent Auto 5.5 % (2.6-8.5); Neutrophils Absolute Auto 11.5 K/mm3 (1.3-6.7); Neutrophils Percent Auto 79.7 % (45.5-73.1); Nucleated Red Blood Cells Perc 0.2 % (0.0-0.2); Platelet Count Result 260 k/mm3 (150-375); Red Blood Count 3.06 M/mm3 (4.2-5.4); Red Cell Distribution Width 15.9 % (11.5-14.5); White Blood Count 14.4 K/mm3 (4.5-10.0)
[2021-03-14] MEDS: CENTRAL LINE FLUSH 10 ML IV PUSH ×3 (05:28→23:12)
[2021-03-14 05:34] LABS: Alanine Aminotransferase 57 U/L (4-35); Albumin Level 3.1 g/dL (3.5-5.1); Alkaline Phosphatase 77 U/L (38-126); Anion Gap 4 mmol/L (8-16); Aspartate Amino Transferase 31 U/L (14-36); Bilirubin,Total 0.3 mg/dL (0.2-1.3); Blood Urea Nitrogen 25 mg/dL (7-17); Calcium 9.2 mg/dL (8.4-10.2); Carbon Dioxide 29 mmol/L (22-30); Chloride 106 mmol/L (98-107); Estimated CRCL calculation 73 ml/min; Estimated Glomerular Filt Rate > 60; Glucose 211 mg/dL (65-110); Phosphorus 3.3 mg/dL (2.5-4.5); Potassium 3.8 mmol/L (3.4-5.0); Sodium 139 mmol/L (137-145)
[2021-03-14] MEDS: levETIRAcetam 500MG/NACL 100ML 500 MG/100 ML BAG 400 MG IVPB ×2 (05:35→16:59)
[2021-03-14 05:42] LABS: Glucose Point of Care 176 mg/dl (65-105)
[2021-03-14] MEDS: HYDROCORTISONE SODIUM SUCCINATE 100 MG/2 ML VIAL 20 MG IV PUSH (08:29)
[2021-03-14] MEDS: METOPROLOL TARTRATE 25 MG TABLET PO ×2 (08:30→20:02)
[2021-03-14] MEDS: ARTIFICIAL TEARS OPHTH SOLN 15 ML BOTTLE 1 DROP EACH EYE ×2 (08:30→20:02)
[2021-03-14] MEDS: PANTOPRAZOLE SODIUM IV 40 MG VIAL IV PUSH (08:30)
[2021-03-14] MEDS: MINERAL OIL/WHITE PETROLATUM OINTMENT 1 APPLIC EACH EYE ×2 (08:30→20:03)
[2021-03-14 08:37] LABS: Glucose Point of Care 161 mg/dl (65-105)
[2021-03-14] MEDS: INSULIN GLARGINE (*BKC) 100 UNITS/ML 30 UNITS SUB-Q (08:37)
[2021-03-14 12:44] LABS: Glucose Point of Care 186 mg/dl (65-105)
[2021-03-14 16:22] LABS: Glucose Point of Care 183 mg/dl (65-105)
[2021-03-14 20:08] LABS: Glucose Point of Care 126 mg/dl (65-105)
[2021-03-14 20:54] LABS: Vancomycin Trough 14.6 ug/mL (10.0-20.0)
[2021-03-15] VITALS (22 sets, daily range): BP systolic 88–148; BP diastolic 48–75; PULSE 57–71; RESP 18–24; TEMP 35.7–36.6; O2SAT 98–100
[2021-03-15 02:40] LABS: Glucose Point of Care 167 mg/dl (65-105)
[2021-03-15] MEDS: CENTRAL LINE FLUSH 10 ML IV PUSH ×3 (06:21→20:55)
[2021-03-15] MEDS: levETIRAcetam 500MG/NACL 100ML 500 MG/100 ML BAG 400 MG IVPB ×2 (06:25→17:08)
[2021-03-15 06:36] LABS: Glucose Point of Care 124 mg/dl (65-105)
[2021-03-15 08:42] LABS: Glucose Point of Care 135 mg/dl (65-105)
[2021-03-15] MEDS: ARTIFICIAL TEARS OPHTH SOLN 15 ML BOTTLE 1 DROP EACH EYE ×2 (08:43→20:55)
[2021-03-15] MEDS: INSULIN GLARGINE (*BKC) 100 UNITS/ML 30 UNITS SUB-Q (08:43)
[2021-03-15] MEDS: MINERAL OIL/WHITE PETROLATUM OINTMENT 1 APPLIC EACH EYE ×2 (08:43→20:55)
[2021-03-15] MEDS: METOPROLOL TARTRATE 25 MG TABLET PO ×2 (08:44→20:55)
[2021-03-15] MEDS: HYDROCORTISONE SODIUM SUCCINATE 100 MG/2 ML VIAL 20 MG IV PUSH (08:44)
[2021-03-15] MEDS: PANTOPRAZOLE SODIUM IV 40 MG VIAL IV PUSH (08:44)
--- NOTE | 2021-03-15 11:29 | P.PNINT_ITS ---
Progress Note: A&P Assessment and Plan (1) Cardiac arrest: Code(s): I46.9 - Cardiac arrest, cause unspecified Status: Acute Assessment and Plan: Patient was asystole and PEA arrest of unknown etiology, patient is on sotalol but there is no evidence of prolonged QT intervals, EKGs did not show any torsades of ventricular arrhythmias. According the ER physician's patient was down for about 25 minutes -no evidence of acute IA, -patient has a history of COPD but her ABGs did not show hypercapnia -CTA chest with no evidence of PE or dissection -hemodynamically stable -status post target temperature management Records were reviewed which were obtained from [facility] where patient was admitted in September of this year with ?cardiac arrest her echocardiogram had a similar findings at at that time the form of 60-65% EF aortic stenosis AI and PH. Patient also had AFib and underwent ablation later in the course. Will discuss with Cardiology -Echocardiogram 1. Complete two-dimensional, color flow and Doppler transthoracic echocardiogram is performed. 2. Strain analysis performed. 3. Left ventricular chamber dimension is normal. 4. Left ventricular systolic function is normal, estimated at 65-70%. 5. There is mildly increased left ventricular wall thickness. 6. The left ventricular diastolic function is normal. 7. Global longitudinal strain is normal at -22 %. 8. Left atrial chamber dimension is moderately enlarged. 9. There is moderate aortic valve stenosis with a peak velocity of 258 cm/s, mean gradient of 15 mmHg, and aortic valve area of 1.5 cm2. 10. There is moderate to severe aortic valve regurgitation. 11. There is moderate aortic valve calcification. 12. There is moderate mitral valve regurgitation. 13. There is mild tricuspid valve regurgitation. 14. Severe pulmonary hypertension, estimated pulmonary arterial systolic pressure is 60 mmHg. (2) Anoxic brain injury: Code(s): G93.1 - Anoxic brain damage, not elsewhere classified Status: Acute Assessment and Plan: - status post target temperature management -CT scan of the brain did not show any acute intracranial abnormality, chronic left parietal lobe infarction and chronic age-related findings -appreciate Neurology evaluation and recommendations - continue to hold propofol as much as possible -EEG 03/03 Abnormal record due to the presence of diffuse low-voltage beta activity without any change throughout the tracing and also with no evidence of the seizure-like activity .clinical correlation recommended Repeat head CT 03/05 showed sinusitis and no other change -there has been no significant improvement in her mental status despite patient being off all sedation - Repeat EEG on 03/11/2021 showed abnormal record due to the absence of cerebral activity, multiple muscle artifacts are noted throughout the tracing. -I discussed with neurologist, who stated that the EEG was pretty ominous, no cerebral activity was present. Prognosis is very poor (3) Myoclonic jerking: Code(s): G25.3 - Myoclonus Status: Acute Assessment and Plan: likely secondary to anoxic brain injury -continue Keppra, -continue to monitor -also often and on propofol (4) Acute respiratory failure with hypoxia: Code(s): J96.01 - Acute respiratory failure with hypoxia Status: Acute Assessment and Plan: Acute respiratory failure due to cardiac arrest, -intubated in the field on 03/01/2021 -on CMV mode of ventilation, peep of 5, and 30% FiO2. -chest x-ray and ABGs revie
--- NOTE | 2021-03-15 11:37 | PM.IMPN ---
Progress Note: A&P Assessment and Plan (1) Cardiac arrest: Code(s): I46.9 - Cardiac arrest, cause unspecified Status: Acute Assessment and Plan: Patient was asystole and PEA arrest of unknown etiologyEKGs did not show any torsades of ventricular arrhythmias. According the ER physician's patient was down for about 25 minutes -no evidence of acute [place], -patient has a history of COPD but her ABGs did not show hypercapnia -CTA chest with no evidence of PE or dissection -hemodynamically stable -status post target temperature management Records were reviewed which were obtained from [facility] where patient was admitted in September of this year with ?cardiac arrest her echocardiogram had a similar findings at at that time the form of 60-65% EF aortic stenosis AI and PH. Patient also had AFib and underwent ablation later in the course. -Echocardiogram reviewed. 1. Complete two-dimensional, color flow and Doppler transthoracic echocardiogram is performed. 2. Strain analysis performed. 3. Left ventricular chamber dimension is normal. 4. Left ventricular systolic function is normal, estimated at 65-70%. 5. There is mildly increased left ventricular wall thickness. 6. The left ventricular diastolic function is normal. 7. Global longitudinal strain is normal at -22 %. 8. Left atrial chamber dimension is moderately enlarged. 9. There is moderate aortic valve stenosis with a peak velocity of 258 cm/s, mean gradient of 15 mmHg, and aortic valve area of 1.5 cm2. 10. There is moderate to severe aortic valve regurgitation. 11. There is moderate aortic valve calcification. 12. There is moderate mitral valve regurgitation. 13. There is mild tricuspid valve regurgitation. 14. Severe pulmonary hypertension, estimated pulmonary arterial systolic pressure is 60 mmHg. (2) Anoxic brain injury: Code(s): G93.1 - Anoxic brain damage, not elsewhere classified Status: Acute Assessment and Plan: Acute anoxic encephalopathy. - status post target temperature management -CT scan of the brain did not show any acute intracranial abnormality, chronic left parietal lobe infarction and chronic age-related findings - continue to hold propofol as much as possible -EEG 03/03 Abnormal record due to the presence of diffuse low-voltage beta activity without any change throughout the tracing and also with no evidence of the seizure-like activity .clinical correlation recommended Repeat head CT 03/05 showed sinusitis and no other change -there has been no significant improvement in her mental status despite patient being off all sedation - Repeat EEG on 03/11/2021 showed abnormal record due to the absence of cerebral activity, multiple muscle artifacts are noted throughout the tracing. -Per neurologist, the EEG was pretty ominous, no cerebral activity was present. Prognosis is very poor (3) Myoclonic jerking: Code(s): G25.3 - Myoclonus Status: Acute Assessment and Plan: likely secondary to anoxic brain injury -continue Keppra, -continue to monitor -also often and on propofol (4) Acute respiratory failure with hypoxia: Code(s): J96.01 - Acute respiratory failure with hypoxia Status: Acute Assessment and Plan: Acute respiratory failure due to cardiac arrest, -intubated in the field on 03/01/2021 -on CMV mode of ventilation, peep of 5, and 30% FiO2. -chest x-ray and ABGs reviewed, -continue bronchodilators given history of COPD - her vent weaning will depend on her neurological improvement -family planning to withdraw care on 03/17/2021 (5) Sinusitis: Qualifiers: Chronicity: unspecified Sinusitis location: unspecified location Qualified Code(s): J32.9 - Chronic sinusitis, unspecified Code(s): J32.9 - Chronic sinusitis, unspecified Status: Acute Assessment and Plan: Patient was having small amount of purulent discha
[2021-03-15 11:47] LABS: Glucose Point of Care 153 mg/dl (65-105)
[2021-03-15 16:29] LABS: Glucose Point of Care 216 mg/dl (65-105)
[2021-03-15] MEDS: INSULIN ASPART (*BKC) 100 UNITS/ML SUB-Q (17:07)
[2021-03-15 21:25] LABS: Glucose Point of Care 138 mg/dl (65-105)
[2021-03-16] VITALS (24 sets, daily range): BP systolic 96–128; BP diastolic 47–76; PULSE 61–84; RESP 18–27; TEMP 36.3–37.1; O2SAT 92–100
[2021-03-16 00:06] LABS: Glucose Point of Care 106 mg/dl (65-105)
[2021-03-16 04:27] LABS: Basophils Percent Auto 0.4 % (0.2-1.2); Eosinophils Absolute Auto 0.1 K/mm3 (0-0.3); Eosinophils Percent Auto 0.9 % (0-4.4); Hematocrit 29.5 % (37.0-47.0); Hemoglobin 9.1 g/dL (12.0-15.0); Immature Granulocyte Percent A 5.5 % (0-0.5); Lymphocytes Absolute Auto 1.22 K/mm3 (0.9-3.2); Lymphocytes Percent Auto 11.1 % (18.3-44.2); Mean Corpuscular HGB Conc 30.8 g/dl (32-36); Mean Corpuscular Hemoglobin 28.4 pg (26-34); Mean Corpuscular Volume 92.2 fl (80-100); Mean Platelet Volume 10.1 fl (7.4-10.4); Monocytes Absolute Auto 0.8 K/mm3 (0.1-0.6); Monocytes Percent Auto 7.2 % (2.6-8.5); Neutrophils Absolute Auto 8.2 K/mm3 (1.3-6.7); Neutrophils Percent Auto 74.9 % (45.5-73.1); Nucleated Red Blood Cells Perc 0.4 % (0.0-0.2); Platelet Count Result 276 k/mm3 (150-375); Red Cell Distribution Width 15.9 % (11.5-14.5)
[2021-03-16 04:38] LABS: Alanine Aminotransferase 43 U/L (4-35); Albumin Level 3.1 g/dL (3.5-5.1); Alkaline Phosphatase 77 U/L (38-126); Anion Gap 5 mmol/L (8-16); Aspartate Amino Transferase 35 U/L (14-36); Bilirubin,Total 0.5 mg/dL (0.2-1.3); Blood Urea Nitrogen 25 mg/dL (7-17); Calcium 9.4 mg/dL (8.4-10.2); Carbon Dioxide 29 mmol/L (22-30); Chloride 104 mmol/L (98-107); Estimated CRCL calculation 75 ml/min; Estimated Glomerular Filt Rate > 60; Glucose 127 mg/dL (65-110); Magnesium 1.6 mg/dL (1.6-2.3); Phosphorus 3.8 mg/dL (2.5-4.5); Potassium 3.8 mmol/L (3.4-5.0); Sodium 138 mmol/L (137-145)
[2021-03-16] MEDS: CENTRAL LINE FLUSH 10 ML IV PUSH ×3 (05:54→20:45)
[2021-03-16] MEDS: levETIRAcetam 500MG/NACL 100ML 500 MG/100 ML BAG 400 MG IVPB ×2 (05:54→17:00)
[2021-03-16] MEDS: METOPROLOL TARTRATE 25 MG TABLET PO ×2 (08:05→20:44)
[2021-03-16] MEDS: ARTIFICIAL TEARS OPHTH SOLN 15 ML BOTTLE 1 DROP EACH EYE ×2 (08:05→20:45)
[2021-03-16] MEDS: HYDROCORTISONE SODIUM SUCCINATE 100 MG/2 ML VIAL 20 MG IV PUSH (08:05)
[2021-03-16] MEDS: PANTOPRAZOLE SODIUM IV 40 MG VIAL IV PUSH (08:06)
[2021-03-16] MEDS: MINERAL OIL/WHITE PETROLATUM OINTMENT 1 APPLIC EACH EYE ×2 (08:06→20:45)
[2021-03-16] MEDS: MAGNESIUM SULF 2 GM/WATER 50ML 2 GM/50 ML BAG IVPB (08:15)
[2021-03-16] MEDS: INSULIN GLARGINE (*BKC) 100 UNITS/ML 30 UNITS SUB-Q (08:15)
[2021-03-16] MEDS: INSULIN ASPART (*BKC) 100 UNITS/ML SUB-Q (08:16)
[2021-03-16 08:33] LABS: Glucose Point of Care 207 mg/dl (65-105)
--- NOTE | 2021-03-16 09:27 | PM.IMPN ---
Progress Note: A&P Assessment and Plan (1) Cardiac arrest: Code(s): I46.9 - Cardiac arrest, cause unspecified Status: Acute Assessment and Plan: Patient was asystole and PEA arrest of unknown etiology. EKGs did not show any torsades of ventricular arrhythmias. According the ER physician's patient was down for about 25 minutes -no evidence of acute [place], -patient has a history of COPD but her ABGs did not show hypercapnia -CTA chest with no evidence of PE or dissection -hemodynamically stable -status post target temperature management Records were reviewed which were obtained from [facility] where patient was admitted in September of this year with ?cardiac arrest her echocardiogram had a similar findings at at that time the form of 60-65% EF aortic stenosis AI and PH. Patient also had AFib and underwent ablation later in the course. -Echocardiogram reviewed. 1. Complete two-dimensional, color flow and Doppler transthoracic echocardiogram is performed. 2. Strain analysis performed. 3. Left ventricular chamber dimension is normal. 4. Left ventricular systolic function is normal, estimated at 65-70%. 5. There is mildly increased left ventricular wall thickness. 6. The left ventricular diastolic function is normal. 7. Global longitudinal strain is normal at -22 %. 8. Left atrial chamber dimension is moderately enlarged. 9. There is moderate aortic valve stenosis with a peak velocity of 258 cm/s, mean gradient of 15 mmHg, and aortic valve area of 1.5 cm2. 10. There is moderate to severe aortic valve regurgitation. 11. There is moderate aortic valve calcification. 12. There is moderate mitral valve regurgitation. 13. There is mild tricuspid valve regurgitation. 14. Severe pulmonary hypertension, estimated pulmonary arterial systolic pressure is 60 mmHg. (2) Anoxic brain injury: Code(s): G93.1 - Anoxic brain damage, not elsewhere classified Status: Acute Assessment and Plan: Acute anoxic encephalopathy. - status post target temperature management -CT scan of the brain did not show any acute intracranial abnormality, chronic left parietal lobe infarction and chronic age-related findings - continue to hold sedation as much as possible -EEG 03/03 Abnormal record due to the presence of diffuse low-voltage beta activity without any change throughout the tracing and also with no evidence of the seizure-like activity .clinical correlation recommended Repeat head CT 03/05 showed sinusitis and no other change -there has been no significant improvement in her mental status despite patient being off all sedation - Repeat EEG on 03/11/2021 showed abnormal record due to the absence of cerebral activity, multiple muscle artifacts are noted throughout the tracing. -Per neurologist, the EEG was pretty ominous, no cerebral activity was present. Prognosis is guarded. (3) Myoclonic jerking: Code(s): G25.3 - Myoclonus Status: Acute Assessment and Plan: likely secondary to anoxic brain injury -continue Keppra, -continue to monitor -also often and on propofol (4) Acute respiratory failure with hypoxia: Code(s): J96.01 - Acute respiratory failure with hypoxia Status: Acute Assessment and Plan: Acute respiratory failure due to cardiac arrest, -intubated in the field on 03/01/2021 -on CMV mode of ventilation, peep of 5, tidal volume 380, and 30% FiO2. -chest x-ray and ABGs reviewed, -continue bronchodilators given history of COPD - her vent weaning will depend on her neurological improvement -family planning to withdraw care on 03/17/2021 (5) Sinusitis: Qualifiers: Sinusitis location: unspecified location Chronicity: unspecified Qualified Code(s): J32.9 - Chronic sinusitis, unspecified Code(s): J32.9 - Chronic sinusitis, unspecified Status: Acute Assessment and Plan: Patient was having small amount
--- NOTE | 2021-03-16 09:56 | WPDINTPN ---
Progress Note: A&P Assessment and Plan (1) Cardiac arrest: Code(s): I46.9 - Cardiac arrest, cause unspecified Status: Acute Assessment and Plan: Patient was asystole and PEA arrest of unknown etiology, patient is on sotalol but there is no evidence of prolonged QT intervals, EKGs did not show any torsades of ventricular arrhythmias. According the ER physician's patient was down for about 25 minutes -no evidence of acute IA, -patient has a history of COPD but her ABGs did not show hypercapnia -CTA chest with no evidence of PE or dissection -hemodynamically stable -status post target temperature management Records were reviewed which were obtained from [facility], [place], operated by [facility] where patient was admitted in September of this year with ?cardiac arrest her echocardiogram had a similar findings at at that time the form of 60-65% EF aortic stenosis AI and PH. Patient also had AFib and underwent ablation later in the course. Will discuss with Cardiology -Echocardiogram 1. Complete two-dimensional, color flow and Doppler transthoracic echocardiogram is performed. 2. Strain analysis performed. 3. Left ventricular chamber dimension is normal. 4. Left ventricular systolic function is normal, estimated at 65-70%. 5. There is mildly increased left ventricular wall thickness. 6. The left ventricular diastolic function is normal. 7. Global longitudinal strain is normal at -22 %. 8. Left atrial chamber dimension is moderately enlarged. 9. There is moderate aortic valve stenosis with a peak velocity of 258 cm/s, mean gradient of 15 mmHg, and aortic valve area of 1.5 cm2. 10. There is moderate to severe aortic valve regurgitation. 11. There is moderate aortic valve calcification. 12. There is moderate mitral valve regurgitation. 13. There is mild tricuspid valve regurgitation. 14. Severe pulmonary hypertension, estimated pulmonary arterial systolic pressure is 60 mmHg. (2) Anoxic brain injury: Code(s): G93.1 - Anoxic brain damage, not elsewhere classified Status: Acute Assessment and Plan: - status post target temperature management -CT scan of the brain did not show any acute intracranial abnormality, chronic left parietal lobe infarction and chronic age-related findings -appreciate Neurology evaluation and recommendations - continue to hold propofol as much as possible -EEG 03/03 Abnormal record due to the presence of diffuse low-voltage beta activity without any change throughout the tracing and also with no evidence of the seizure-like activity .clinical correlation recommended Repeat head CT 03/05 showed sinusitis and no other change -there has been no significant improvement in her mental status despite patient being off all sedation - Repeat EEG on 03/11/2021 showed abnormal record due to the absence of cerebral activity, multiple muscle artifacts are noted throughout the tracing. -I discussed with neurologist, who stated that the EEG was pretty ominous, no cerebral activity was present. Prognosis is very poor (3) Myoclonic jerking: Code(s): G25.3 - Myoclonus Status: Acute Assessment and Plan: likely secondary to anoxic brain injury -continue Keppra, -continue to monitor -also often and on propofol (4) Acute respiratory failure with hypoxia: Code(s): J96.01 - Acute respiratory failure with hypoxia Status: Acute Assessment and Plan: Acute respiratory failure due to cardiac arrest, -intubated in the field on 03/01/2021 -on CMV mode of ventilation, peep of 5, and 30% FiO2. -chest x-ray and ABGs reviewed, -continue bronchodilators given history of COPD - her vent weaning will depend on her neurological improvement -family planning to withdraw care on 03/17/2021 (5) Sinusitis: Qualifiers: Sinusitis location: unspecified location Chronicity: unspecified Qualified Code(s): J32.9 - Chronic sinusitis, unspecified
--- NOTE | 2021-03-16 11:27 | PCDIET ---
ICU Rounding Note: Patient tolerating Vital 1.2 at 60mL/hr goal rate with 200mL water flush every 4 hours. Residuals 300mL and below. MD decreasing water flush to 30mL every 4 hours and adding Banatrol for diarrhea. Last recorded weight is 88.6kg which is up from last review. I/O slightly positive. Bowel Motility: BM x 3 today. RN reports diarrhea. Labs Reviewed: WBC (11.0), RBC (32.0), Hgb (9.1), Hct (29.5), Glu (127) Meds Noted: Solu Cortef, Novolog, Lantus, Keppra, Lopressor, Magnesium Sulfate, Protonix, Zosyn, Vancomycin Additional Notes: Right breast abrasion. No documented pressure sores. Family planning for withdrawal of care tomorrow, 03/17/21. Following daily in ICU rounds. Assessing/reassessing every Tuesday/Tuesday.
[2021-03-16] MEDS: SCOPOLAMINE 1.5 MG PATCH TRANSDERM (11:42)
[2021-03-16 11:47] LABS: Glucose Point of Care 142 mg/dl (65-105)
[2021-03-16 16:49] LABS: Glucose Point of Care 158 mg/dl (65-105)
[2021-03-16 20:46] LABS: Glucose Point of Care 144 mg/dl (65-105)
[2021-03-16 23:33] LABS: Glucose Point of Care 123 mg/dl (65-105)
[2021-03-17] VITALS (17 sets, daily range): BP systolic 90–120; BP diastolic 49–76; PULSE 64–89; RESP 16–24; TEMP 36.9–37.2; O2SAT 90–100
[2021-03-17 05:36] LABS: Glucose Point of Care 106 mg/dl (65-105)
[2021-03-17] MEDS: levETIRAcetam 500MG/NACL 100ML 500 MG/100 ML BAG 400 MG IVPB (05:37)
[2021-03-17] MEDS: CENTRAL LINE FLUSH 10 ML IV PUSH (05:38)
[2021-03-17 08:13] LABS: Glucose Point of Care 117 mg/dl (65-105)
[2021-03-17] MEDS: ARTIFICIAL TEARS OPHTH SOLN 15 ML BOTTLE 1 DROP EACH EYE (08:50)
[2021-03-17] MEDS: METOPROLOL TARTRATE 25 MG TABLET PO (08:50)
[2021-03-17] MEDS: HYDROCORTISONE SODIUM SUCCINATE 100 MG/2 ML VIAL 20 MG IV PUSH (08:51)
[2021-03-17] MEDS: MINERAL OIL/WHITE PETROLATUM OINTMENT 1 APPLIC EACH EYE (08:51)
[2021-03-17] MEDS: PANTOPRAZOLE SODIUM IV 40 MG VIAL IV PUSH (08:52)
--- NOTE | 2021-03-17 09:30 | WPDINTPN ---
Progress Note: A&P Assessment and Plan (1) Cardiac arrest: Code(s): I46.9 - Cardiac arrest, cause unspecified Status: Acute Assessment and Plan: Patient was asystole and PEA arrest of unknown etiology, patient is on sotalol but there is no evidence of prolonged QT intervals, EKGs did not show any torsades of ventricular arrhythmias. According the ER physician's patient was down for about 25 minutes -no evidence of acute [place], -patient has a history of COPD but her ABGs did not show hypercapnia -CTA chest with no evidence of PE or dissection -hemodynamically stable -status post target temperature management Records were reviewed which were obtained from [facility] where patient was admitted in September of this year with ?cardiac arrest her echocardiogram had a similar findings at at that time the form of 60-65% EF aortic stenosis AI and PH. Patient also had AFib and underwent ablation later in the course. Will discuss with Cardiology -Echocardiogram 1. Complete two-dimensional, color flow and Doppler transthoracic echocardiogram is performed. 2. Strain analysis performed. 3. Left ventricular chamber dimension is normal. 4. Left ventricular systolic function is normal, estimated at 65-70%. 5. There is mildly increased left ventricular wall thickness. 6. The left ventricular diastolic function is normal. 7. Global longitudinal strain is normal at -22 %. 8. Left atrial chamber dimension is moderately enlarged. 9. There is moderate aortic valve stenosis with a peak velocity of 258 cm/s, mean gradient of 15 mmHg, and aortic valve area of 1.5 cm2. 10. There is moderate to severe aortic valve regurgitation. 11. There is moderate aortic valve calcification. 12. There is moderate mitral valve regurgitation. 13. There is mild tricuspid valve regurgitation. 14. Severe pulmonary hypertension, estimated pulmonary arterial systolic pressure is 60 mmHg. (2) Anoxic brain injury: Code(s): G93.1 - Anoxic brain damage, not elsewhere classified Status: Acute Assessment and Plan: - status post target temperature management -CT scan of the brain did not show any acute intracranial abnormality, chronic left parietal lobe infarction and chronic age-related findings -appreciate Neurology evaluation and recommendations - continue to hold propofol as much as possible -EEG 03/03 - Abnormal record due to the presence of diffuse low-voltage beta activity without any change throughout the tracing and also with no evidence of the seizure-like activity - Repeat head CT 03/05 showed sinusitis and no other change -there has been no significant improvement in her mental status despite patient being off all sedation - Repeat EEG on 03/11/2021 showed abnormal record due to the absence of cerebral activity, multiple muscle artifacts are noted throughout the tracing. -I discussed with neurologist, who stated that the EEG was pretty ominous, no cerebral activity was present. Prognosis is very poor (3) Myoclonic jerking: Code(s): G25.3 - Myoclonus Status: Acute Assessment and Plan: likely secondary to anoxic brain injury -continue Keppra, -continue to monitor (4) Acute respiratory failure with hypoxia: Code(s): J96.01 - Acute respiratory failure with hypoxia Status: Acute Assessment and Plan: Acute respiratory failure due to cardiac arrest, -intubated in the field on 03/01/2021 -on CMV mode of ventilation, peep of 5, and 30% FiO2. -chest x-ray and ABGs reviewed, -continue bronchodilators given history of COPD - her vent weaning will depend on her neurological improvement -family planning to withdraw care later today (5) Sinusitis: Qualifiers: Sinusitis location: unspecified location Chronicity: unspecified Qualified Code(s): J32.9 - Chronic sinusitis, unspecified Code(s): J32.9 - Chronic sinusitis, unspecified Status: Acut
--- NOTE | 2021-03-17 11:17 | PCDIET ---
Nutrition Follow-Up Complete: Nutrition Diagnosis: Inadequate oral intake related to oral intubation as evidenced by NPO status. Nutrition Goal: Patient to meet estimated nutritional needs. Goal not met. Tube feedings on hold for anticipated withdrawal of care today. Will continue to monitor for any changes in plan. Last recorded weight is 87.2 kg which is down from last review. -I/O. Bowel Motility: Frequent BMs, per RN. Previously on Banatrol which was held with tube feeding. Labs Reviewed: Glu (117) Meds Noted: Protonix, Zosyn, Solu Cortef, Lantus, Keppra, Lopressor Additional Notes: No change in skin reported. Nutrition Monitoring and Evaluation: Follow up every Tuesday/Tuesday.
[2021-03-17 12:52] LABS: Glucose Point of Care 121 mg/dl (65-105)
--- NOTE | 2021-03-17 14:02 | P.PNCROSS_ITS ---
Event Note Event Note Event Note: Family Meeting I met with patient's Sahil, 2 sons and a daughter in presence of academic services professional Rory, nurse Heath and customer care voice consultant to discuss medical decisions and level of care. Patient was admitted with cardiac arrest and assisting anoxic brain injury. Patient has been on mechanical ventilation since 03/01 and has been off of sedation post TTM protocol. She also had an myoclonic jerks which were treated with Keppra. Repeat CT head was done which was unremarkable. Patient was seen by Neurology and also had a EEG done on 03/11 which showed absence of cortical activity. We have been in continues fer K martinez with patient's over the hospital course and he wanted to wait and see if patient's neuro status improves. Since there has been no meaningful improvement over last 2 weeks he does not believe the patient would like to continue on mechanical ventilation and further medical care considering her poor prognosis. Today we went over again with patient's presentation, results of the workup done at this hospital and possible etiologies of her cardiac arrest. We also went over the the details of the fact that she had a similar incident in [place] in September when she had a cardiac arrest with successful resuscitation but similar workup done at a hospital in [place]. I answered all the questions. The family has decided, in accordance with pt's wishes, to discontinue all medical therapy and institute comfort measures only. I have explained the details about palliative extubation and comfort measures. I did discuss options of autopsy and organ donation and they were not interested in pursuing either. I have answered all their questions. I will extubate patient and use opioids, anxiolytics and other agents on as needed basis to promote comfort and discontinue all medical therapy, lab testing and invasive monitoring. Total time spent 35 minutes
[2021-03-17] MEDS: MORPHINE SULFATE INJ (*CRX) 10 MG/ML AMP 5 MG IV PUSH (14:11)
[2021-03-17] MEDS: LORazepam INJ (*CRX) 2 MG/ML VIAL IV PUSH (14:14)
--- NOTE | 2021-03-17 14:20 | PC.NURSE ---
Patient transitioned to comfort care. Sahil and children at bedside , all questions answered. Mail Carrier, nursing, respiratory, and unit manager rn support all present for patient and family needs.
[2021-03-17] MEDS: MORPHINE SULFATE (*CRX) 2 MG/ML INJ 4 MG IV PUSH ×2 (20:01→22:55)
[2021-03-17] MEDS: ATROPINE SULFATE 1% OPHTH SOLN 5 ML BOTTLE SUBLINGUAL (20:01)
[2021-03-18] VITALS: BP 73/49; PULSE 81; RESP 24; O2SAT 88
[2021-03-18] MEDS: LORazepam INJ (*CRX) 2 MG/ML VIAL IV PUSH ×6 (00:31→14:05)
[2021-03-18] MEDS: MORPHINE SULFATE (*CRX) 2 MG/ML INJ 4 MG IV PUSH ×12 (00:32→15:44)
[2021-03-18] MEDS: ATROPINE SULFATE 1% OPHTH SOLN 5 ML BOTTLE SUBLINGUAL ×3 (01:33→12:09)
[2021-03-18 08:00] VITALS: BP 100/73; PULSE 92; RESP 26; TEMP 36.9; O2SAT 98
--- NOTE | 2021-03-18 10:42 | PCDIET ---
Nutrition Follow-Up Complete: Nutrition Diagnosis: Inadequate oral intake related to oral intubation as evidenced by NPO status. Nutrition Goal: Patient to meet estimated nutritional needs. Goal not met. Patient terminally weaned on 03/17/21. Will follow for any change in plan and provide recommendations, if needed. Last recorded weight is 84.1 kg which is down from last review. -I/O. Bowel Motility: BM x 1 today. Labs Reviewed: No new labs drawn. Meds Noted: Ativan, Morphine, Scopolamine Additional Notes: Right breast abrasion. Nutrition Monitoring and Evaluation: Follow up every 3 days.
[2021-03-18 13:22] VITALS: BP 86/46; PULSE 98; RESP 23; O2SAT 80
--- NOTE | 2021-03-18 15:52 | PC.NURSE ---
This patient, Mariam Lombardo, was transferred to [[id number]] on 03/18/21 at 1552. Personal belongings sent with patient. Report given to [Kaley BEE]. Appropriate documentation sent with patient.
--- NOTE | 2021-03-18 16:13 | PC.NURSE ---
This patient, Mariam Lombardo, was received from [ ICU] on 03/18/21 at 1614. Report received from Hortensia BEE. Patient/family oriented to unit policies and routines. Patient in bed and unresponsive at this time. Hospice in with patient currently. Will continue to monitor patient.
[2021-03-18 16:50] VITALS: BP 78/52; PULSE 90; RESP 24; TEMP 37.1; O2SAT 87
--- NOTE | 2021-03-20 11:14 | PM.DS ---
DS: Admitting Diagnosis Discharge Date 03/18/21 Admitting Diagnosis Cardiac arrest DS: Discharge Diagnosis Discharge Diagnosis (1) Cardiac arrest: Code(s): I46.9 - Cardiac arrest, cause unspecified Status: Acute Assessment and Plan: Patient was asystole and PEA arrest of unknown etiology, patient is on sotalol but there is no evidence of prolonged QT intervals, EKGs did not show any torsades of ventricular arrhythmias. According the ER physician's patient was down for about 25 minutes -no evidence of acute OK, -patient has a history of COPD but her ABGs did not show hypercapnia -CTA chest with no evidence of PE or dissection -hemodynamically stable -status post target temperature management Records were reviewed which were obtained from [facility] where patient was admitted in September of this year with ?cardiac arrest her echocardiogram had a similar findings at at that time the form of 60-65% EF aortic stenosis AI and PH. Patient also had AFib and underwent ablation later in the course. Will discuss with Cardiology -Echocardiogram 1. Complete two-dimensional, color flow and Doppler transthoracic echocardiogram is performed. 2. Strain analysis performed. 3. Left ventricular chamber dimension is normal. 4. Left ventricular systolic function is normal, estimated at 65-70%. 5. There is mildly increased left ventricular wall thickness. 6. The left ventricular diastolic function is normal. 7. Global longitudinal strain is normal at -22 %. 8. Left atrial chamber dimension is moderately enlarged. 9. There is moderate aortic valve stenosis with a peak velocity of 258 cm/s, mean gradient of 15 mmHg, and aortic valve area of 1.5 cm2. 10. There is moderate to severe aortic valve regurgitation. 11. There is moderate aortic valve calcification. 12. There is moderate mitral valve regurgitation. 13. There is mild tricuspid valve regurgitation. 14. Severe pulmonary hypertension, estimated pulmonary arterial systolic pressure is 60 mmHg. (2) Anoxic brain injury: Code(s): G93.1 - Anoxic brain damage, not elsewhere classified Status: Acute Assessment and Plan: - status post target temperature management -CT scan of the brain did not show any acute intracranial abnormality, chronic left parietal lobe infarction and chronic age-related findings -appreciate Neurology evaluation and recommendations - continue to hold propofol as much as possible -EEG 03/03 - Abnormal record due to the presence of diffuse low-voltage beta activity without any change throughout the tracing and also with no evidence of the seizure-like activity - Repeat head CT 03/05 showed sinusitis and no other change -there has been no significant improvement in her mental status despite patient being off all sedation - Repeat EEG on 03/11/2021 showed abnormal record due to the absence of cerebral activity, multiple muscle artifacts are noted throughout the tracing. -I discussed with neurologist, who stated that the EEG was pretty ominous, no cerebral activity was present. Prognosis is very poor (3) Myoclonic jerking: Code(s): G25.3 - Myoclonus Status: Acute Assessment and Plan: likely secondary to anoxic brain injury -continue Keppra, -continue to monitor (4) Acute respiratory failure with hypoxia: Code(s): J96.01 - Acute respiratory failure with hypoxia Status: Acute Assessment and Plan: Acute respiratory failure due to cardiac arrest, -intubated in the field on 03/01/2021 -on CMV mode of ventilation, peep of 5, and 30% FiO2. -chest x-ray and ABGs reviewed, -continue bronchodilators given history of COPD - her vent weaning will depend on her neurological improvement -family planning to withdraw care later today (5) Sinusitis: Qualifiers: Sinusitis location: unspecified location Chronicity: unspecified Qualified Code(s): J32.9 - Chronic s
--- NOTE | 2021-04-14 17:49 | PM.IMPN ---
Progress Note: A&P Assessment and Plan (1) Cardiac arrest: Code(s): I46.9 - Cardiac arrest, cause unspecified Status: Acute Assessment and Plan: Patient was asystole and PEA arrest of unknown etiology, patient is on sotalol but there is no evidence of prolonged QT intervals, EKGs did not show any torsades of ventricular arrhythmias. According the ER physician's patient was down for about 25 minutes -no evidence of acute KS, -patient has a history of COPD but her ABGs did not show hypercapnia -CTA chest with no evidence of PE or dissection -hemodynamically stable (2) Anoxic brain injury: Code(s): G93.1 - Anoxic brain damage, not elsewhere classified Status: Acute Assessment and Plan: - status post target temperature management -CT scan of the brain did not show any acute intracranial abnormality, chronic left parietal lobe infarction and chronic age-related findings -appreciate Neurology evaluation and recommendations - continue to hold propofol as much as possible -EEG 03/03 - Abnormal record due to the presence of diffuse low-voltage beta activity without any change throughout the tracing and also with no evidence of the seizure-like activity - Repeat head CT 03/05 showed sinusitis and no other change -there has been no significant improvement in her mental status despite patient being off all sedation - Repeat EEG on 03/11/2021 showed abnormal record due to the absence of cerebral activity, multiple muscle artifacts are noted throughout the tracing. -I discussed with neurologist, who stated that the EEG was pretty ominous, no cerebral activity was present. Prognosis is very poor (3) Myoclonic jerking: Code(s): G25.3 - Myoclonus Status: Acute Assessment and Plan: likely secondary to anoxic brain injury -continue Keppra, -continue to monitor (4) Acute respiratory failure with hypoxia: Code(s): J96.01 - Acute respiratory failure with hypoxia Status: Acute Assessment and Plan: Acute respiratory failure due to cardiac arrest, -intubated in the field on 03/01/2021 -on CMV mode of ventilation, peep of 5, and 30% FiO2. -chest x-ray and ABGs reviewed, -continue bronchodilators given history of COPD - her vent weaning will depend on her neurological improvement -family planning to withdraw care later today (5) Sinusitis: Qualifiers: Sinusitis location: unspecified location Chronicity: unspecified Qualified Code(s): J32.9 - Chronic sinusitis, unspecified Code(s): J32.9 - Chronic sinusitis, unspecified Status: Acute Assessment and Plan: Patient was having small amount of purulent discharge coming from nostrils and also had sinusitis on CT scan She does not have NG but has OG and endotracheal tube White count improving She is currently on IV vancomycin (initiated on 03/10/2021) and IV Zosyn (initiated on 03/07/2021) Sputum and blood cultures are negative as of now She has a urostomy I do not see any significant infiltrate on the chest x-ray to suggest pneumonia at this time (6) Elevated LFTs: Code(s): R79.89 - Other specified abnormal findings of blood chemistry Status: Acute Assessment and Plan: Elevated LFTs likely related to cardiac arrest -will hydrate patient, -LFTs are improving (7) COPD (chronic obstructive pulmonary disease): Qualifiers: COPD type: unspecified COPD Qualified Code(s): J44.9 - Chronic obstructive pulmonary disease, unspecified Code(s): J44.9 - Chronic obstructive pulmonary disease, unspecified Status: Acute Assessment and Plan: Patient with history of COPD but does not appear in any exacerbation -patient on prednisone at home likely for COPD but unsure -continue bronchodilators, mechanical ventilation (8) Paroxysmal atrial fibrillation: Code(s): I48.0 - Paroxysmal atrial fibrillation Status: Acute Assessment and Plan: Patient
== END 2021-03-18 16:56 | disposition hospice, inpatient (51) | DRG 280 ==
LOC: ANHED 03-01 00:31 → ANHICU 03-01 02:55 → ANH3MED 03-18 16:56 → ANHICU 03-23 12:05
PROVIDERS: Internal Medicine; Internal Medicine Cardiovascular Disease; Admitting Provider Internal Medicine; Emergency Provider Emergency Medicine; Visit Provider Internal Medicine
DX: I46.9 Cardiac arrest, cause unspecified (principal); J96.01 Acute respiratory failure with hypoxia; I21.A1 Myocardial infarction type 2; J18.9 Pneumonia, unspecified organism; G93.1 Anoxic brain damage, not elsewhere classified; E87.0 Hyperosmolality and hypernatremia; Z51.5 Encounter for palliative care; Z79.01 Long term (current) use of anticoagulants; I48.91 Unspecified atrial fibrillation; Z85.51 Personal history of malignant neoplasm of bladder; Z93.6 Other artificial openings of urinary tract status; Z87.891 Personal history of nicotine dependence; G25.3 Myoclonus; I95.9 Hypotension, unspecified; N28.9 Disorder of kidney and ureter, unspecified; R73.9 Hyperglycemia, unspecified; E78.1 Pure hyperglyceridemia; M06.9 Rheumatoid arthritis, unspecified; J44.9 Chronic obstructive pulmonary disease, unspecified; E87.8 Other disorders of electrolyte and fluid balance, not elsewhere classified; E87.6 Hypokalemia; F43.9 Reaction to severe stress, unspecified; I08.0 Rheumatic disorders of both mitral and aortic valves; I27.20 Pulmonary hypertension, unspecified; J32.9 Chronic sinusitis, unspecified; R04.0 Epistaxis; F32.A Depression, unspecified; D50.9 Iron deficiency anemia, unspecified; F12.90 Cannabis use, unspecified, uncomplicated; Z86.74 Personal history of sudden cardiac arrest; N18.32 Chronic kidney disease, stage 3b
CPT/HCPCS: 36415; 36569; 36600; 70450; 71045; 71275; 74018; 80048; 80053; 80061; 80202; 80307; 81001; 82140; 82274; 82375; 82550; 82565; 82570; 82728; 82805; 82948; 83036; 83050; 83540; 83550; 83605; 83735; 83935; 84100; 84300; 84439; 84443; 84484; 85025; 85027; 85610; 85730; 86850; 86900; 86901; 87040; 87070; 87077; 87086; 87088; 87186; 87205; 93005; 93306; 94003; 94640; 95816; 96365; 96366; 96367; 96368; 96375; 99285; A9270; C1751; C9113; G0378; J0131; J0171; J0282; J1644; J1650; J1720; J1815; J1953; J2060; J2250; J2270; J2543; J2704; J3010; J3370; J3475; J3480; J7030; J7070; J7120; Q9967

== ENCOUNTER 2021-03-18 16:57 | HOS | payer OTHER, SELFPAY ==
--- OUTSIDE RECORDS SUMMARY | 2021-03-18 17:29 | XMS_ITS | Continuity of Care Document ---
:1960 Author Organization [facility] Address [address] [place] [address]- Care Team Providers Name Role Phone SELF-REFERRAL Unavailable Unavailable Encounter [facility] Fin Number pool [id number] Date(s): 04/14/20 - 04/14/20 [facility] [address] [place] [address]- Discharge Disposition: Discharged Home/Self Care Attending Physician: LAURA GAMEZ MD Allergies, Adverse Reactions, Alerts Substance Reaction Severity Status tetracycline Eyes swollen Mild Active Hives Adhesive Tape Rash Mild Active Assessment and Plan Future AppointmentsAppointment Date:07/15/2020 01:10:00 PM Scheduled Provider: Location:Diagnostic Imaging Appointment Type:CT Thorax without Contrast Appointment Date:10/15/2020 09:00:00 AM Scheduled Provider: Location:Diagnostic Imaging Appointment Type:CT Abd/Pelvis/Thorax w/ Contrast - Combo Appointment Date:10/15/2020 10:45:00 AM Scheduled Provider: Location:Blood Draw Area Appointment Type:Lab Services Appointment Date:10/15/2020 11:30:00 AM Scheduled Provider:ILIANA ORNELAS APRN Location: Clinic Appointment Type:EP Future Scheduled TestsLaboratoryBasic Metabolic Panel 10/15/20RadiologyCT Thorax w/o Contrast 07/15/20CT TAP w/Cont (Thorax, Abd,Pelvis) 10/15/20 Medications ALPRAZolam 0.5 mg oral tablet 0.5 mg = 1 tab(s), PO, TID, PRN for anxiety, 0 Refill(s) Start Date: 06/07/19 Status: OrderedColace 100 mg oral capsule 100 mg = 1 cap(s), PO, BID, PRN Constipation, # 14 cap(s), 0 Refill(s) Start Date: 02/11/20 Status: Orderedfurosemide 20 mg oral tablet 20 mg = 1 tab(s), PO, Q48HR, 0 Refill(s) Start Date: 06/07/19 Status: Orderedondansetron 8 mg oral tablet 8 mg = 1 tab(s), PO, Q8HR, PRN Nausea/Vomiting, # 90 tab(s), 2 Refill(s), Pharmacy: [facility]/pharmacy #[id number], 163.5 cm 06/11/19 9:49:00 EST Ht (cm), 65.6 kg 08/23/19 8:39:00 EDT Dosing Weight Start Date: 08/30/19 Stop Date: 11/28/19 Status: Orderedpotassium chloride 99 mg oral tablet 99 mg = 1 tab(s), PO, Q48HR, 0 Refill(s) Start Date: 06/11/19 Status: OrderedpredniSONE 10 mg, PO, DAILY, 0 Refill(s) Start Date: 02/26/20 Status: Orderedsotalol 120 mg oral tab 120 mg = 1 tab(s), PO, BID, 0 Refill(s) Start Date: 06/11/19 Status: Orderedvenlafaxine 75 mg oral capsule, extended release 75 mg = 1 cap(s), PO, Daily, # 30 cap(s), 0 Refill(s) Start Date: 06/07/19 Status: OrderedVitamin B
--- OUTSIDE RECORDS SUMMARY | 2021-03-18 17:29 | XMS_ITS | Continuity of Care Document ---
:1960 Author Organization [facility] Address [address] [place] [address]- Care Team Providers Name Role Phone SELF-REFERRAL Unavailable Unavailable Encounter [facility] Fin Number pool [id number] Date(s): 10/18/19 - 10/18/19 [facility] [address] [place] [address]- Discharge Disposition: Discharged Home/Self Care Attending Physician: NIURKA MORENO MD Allergies, Adverse Reactions, Alerts Substance Reaction Severity Status tetracycline Eyes swollen Mild Active Hives Adhesive Tape Rash Mild Active Assessment and Plan Future AppointmentsAppointment Date:10/26/2019 03:30:00 PM Scheduled Provider: Location:Blood Draw Area Appointment Type:Lab Services Appointment Date:10/26/2019 04:30:00 PM Scheduled Provider: Location:Infusion Center Appointment Type:Arrival Time Infusion Appointment Date:10/29/2019 03:00:00 PM Scheduled Provider: Location:Phone/Remote Appointment Type:zoomEP Future Scheduled TestsLaboratoryPre Chemo Labs Request 10/26/19CBC with Diff 10/26/19CBC with Diff 08/09/19Comprehensive Metabolic Panel 10/26/19Comprehensive Metabolic Panel 08/09/19Magnesium Level 10/26/19 Medications ALPRAZolam 0.5 mg oral tablet 0.5 mg = 1 tab(s), PO, TID, PRN for anxiety, 0 Refill(s) Start Date: 06/07/19 Status: Orderedfurosemide 20 mg oral tablet 20 mg = 1 tab(s), PO, Daily, # 30 tab(s), 0 Refill(s) Start Date: 06/07/19 Status: Orderedondansetron 8 mg oral tablet 8 mg = 1 tab(s), PO, Q8HR, PRN Nausea/Vomiting, # 90 tab(s), 2 Refill(s), Pharmacy: [facility]/pharmacy #[id number], 163.5 cm 06/11/19 9:49:00 EST Ht (cm), 65.6 kg 08/23/19 8:39:00 EDT Dosing Weight Start Date: 08/30/19 Stop Date: 11/28/19 Status: Orderedpotassium chloride 99 mg oral tablet 99 mg = 1 tab(s), PO, Daily, # 100 tab(s), 0 Refill(s) Start Date: 06/11/19 Status: Orderedprochlorperazine 10 mg oral tablet 10 mg = 1 tab(s), PO, Q6HR, PRN Nausea/Vomiting, X 30 day(s), # 120 tab(s), 4 Refill(s), Pharmacy: [facility]/pharmacy #[id number], 163.5 cm 06/11/19 9:49:00 EST Ht (cm), 65.5 kg 07/09/19 14:37:00 EST Dosing Weight Start Date: 07/09/19 Stop Date: 12/06/19 Status: Orderedsotalol 120 mg oral tab 120 mg = 1 tab(s), PO, BID, 0 Refill(s) Start Date: 06/11/19 Status: Orderedvenlafaxine 75 mg oral capsule, extended release 75 mg = 1 cap(s), PO, Daily, # 30 cap(s), 0 Refill(s) Start Date: 06/07/19 Status: OrderedVitamin B Complex with C and
--- OUTSIDE RECORDS SUMMARY | 2021-03-18 17:29 | XMS_ITS | Continuity of Care Document ---
:1960 Author Organization [facility] Address [address] [place] [address]- Care Team Providers Name Role Phone SELF-REFERRAL Unavailable Unavailable Encounter [facility] Fin Number pool [id number] Date(s): 12/20/19 - 12/20/19 [facility] [address] [place] [address]- Attending Physician: LAURA GAMEZ MD Admitting Physician: LAURA GAMEZ MD Allergies, Adverse Reactions, Alerts Substance Reaction Severity Status tetracycline Eyes swollen Mild Active Hives Adhesive Tape Rash Mild Active Assessment and Plan Future AppointmentsAppointment Date:12/31/2019 01:30:00 PM Scheduled Provider: Location:Enterostomal Appointment Type:Ostomy Wound Outpatient Appointment Date:12/31/2019 03:00:00 PM Scheduled Provider: Location:PAT Appointment Type:Pre Anesthesia Testing Appointment Date:01/03/2020 05:15:00 AM Scheduled Provider: Location:MAIN OR Appointment Type:SN - OR/OBS Medications ALPRAZolam 0.5 mg oral tablet 0.5 [...] tab(s), 0 Refill(s) Start Date: 06/11/19 Status: Orderedsotalol 120 mg oral tab 120 mg = 1 tab(s), PO, BID, 0 Refill(s) Start Date: 06/11/19 Status: Orderedvenlafaxine 75 mg oral capsule, extended release 75 mg = 1 cap(s), PO, Daily, # 30 cap(s), 0 Refill(s) Start Date: 06/07/19 Status: OrderedVitamin B Complex with C and Calcium oral tablet 1 tablet, PO, DAILY, 0 Refill(s) Start Date: 06/11/19 Status: Orderedwarfarin 5 mg oral tablet 5 mg = 1 tab(s), PO, DAILY, 5mg on Tuesday, Tuesday and -rest of the the week 7.5mg po daily, 0 Refill(s) Start Date: 06/07/19 Status: Ordered Problem List Condition Effective Dates Status Health Status Informant Atrial fibrillation(Possible)1 Active patient Blo
--- OUTSIDE RECORDS SUMMARY | 2021-03-18 17:29 | XMS_ITS | Continuity of Care Document ---
:1960 Author Organization [facility] Address [address] [place] [address]- Care Team Providers Name Role Phone SELF-REFERRAL Unavailable Unavailable Encounter [facility] Fin Number pool [id number] Date(s): 12/31/19 - 12/31/19 [facility] [address] [place] [address]- Discharge Disposition: Discharged Home/Self Care Allergies, Adverse Reactions, Alerts Substance Reaction Severity Status tetracycline Eyes swollen Mild Active Hives Adhesive Tape Rash Mild Active Assessment and Plan Future AppointmentsAppointment Date:01/03/2020 05:15:00 AM Scheduled Provider: Location:MAIN OR Appointment Type:SN - OR/OBS Diagnostic Tests PendingCOVID-19 Molecular Screening, Dry Swab 12/31/19 Medications ALPRAZolam 0.5 mg oral tablet 0.5 mg = 1 tab(s), PO, TID, PRN for anxiety, 0 Refill(s) Start Date: 06/07/19 Status: Orderedfurosemide 20 mg oral tablet 20 mg = 1 tab(s), PO, Daily, # 30 tab(s), 0 Refill(s) Start Date: 06/07/19 Status: Orderedondansetron 8 mg oral tablet 8 mg = 1 tab(s), PO, Q8HR, PRN Nausea/Vomiting, # 90 tab(s), 2 Refill(s), Pharmacy: [facility]/pharmacy #[id number], 163.5 cm 06/11/19 9:49:00 EST Ht [...] Health Status Informant Atrial fibrillation(Possible)1 Active patient Blood in urine(Possible)2 Active pa tient Environmental allergy(Possible)3 Active patient Hepatitis B vaccination(
--- OUTSIDE RECORDS SUMMARY | 2021-03-18 17:29 | XMS_ITS | Continuity of Care Document ---
:1960 Author Organization [facility] Address [address] [place] [address]- Care Team Providers Name Role Phone SELF-REFERRAL Unavailable Unavailable Encounter [facility] Fin Number pool [id number] Date(s): 01/15/20 - 01/15/20 [facility] [address] [place] [address]- Discharge Disposition: Discharged Home/Self Care Attending Physician: VIJAY NOVAK, NAIDA Allergies, Adverse Reactions, Alerts Substance Reaction Severity Status tetracycline Eyes swollen Mild Active Hives Adhesive Tape Rash Mild Active Assessment and Plan Future AppointmentsAppointment Date:04/14/2020 10:15:00 AM Scheduled Provider: Location:Blood Draw Area Appointment Type:Lab Services Appointment Date:04/14/2020 10:50:00 AM Scheduled Provider: Location:[facility] Appointment Type:CT Abd/Pelvis/Thorax w/ Contrast - Combo Appointment Date:04/14/2020 01:00:00 PM Scheduled Provider:LAURA GAMEZ MD Location: Clinic Appointment Type:EP Future Scheduled TestsLaboratoryBasic Metabolic Panel 04/14/20Vitamin B12 Level 04/14/20RadiologyCT TAP w/Cont (Thorax, Abd,Pelvis) 04/14/20 Medications ALPRAZolam 0.5 mg oral tablet 0.5 mg = 1 tab(s), PO, TID, PRN for anxiety, 0 Refill(s) Start Date: 06/07/19 Status: Orderedfurosemide 20 mg oral tablet 20 mg = 1 tab(s), PO, Daily, # 30 tab(s), 0 Refill(s) Start Date: 06/07/19 Status: Orderedhydrocodone-acetaminophen 5 mg-325 mg oral tablet TAKE ONE TO TWO TABLETS BY MOUTH EVERY 6 HOURS FOR 7 DAYS NEEDED FOR PAIN Start Date: 01/15/20 Status: Orderedondansetron 8 mg oral tablet 8 mg = 1 tab(s), PO, Q8HR, PRN Nausea/Vomiting, # 90 tab(s), 2 Refill(s), Pharmacy: [facility]/pharmacy #[id number], 163.5 cm 06/11/19 9:49:00 EST Ht (cm), 65.6 kg 08/23/19 8:39:00 EDT Dosing Weight Start Date: 08/30/19 Stop Date: 11/28/19 Status: Orderedpotassium chloride 99 mg oral tablet 99 mg = 1 tab(s), PO, Daily, # 100 tab(s), 0 Refill(s) Start Date: 06/11/19 Status: OrderedSenna S 50 mg-8.6 mg oral tablet 2 tab(s), PO, BEDTIME, PRN Constipation, X 10 day(s), # 20 tab(s), 0 Refill(s), Pharmacy: [id number], - 535 - will be discharged today, thank you!, 162 cm 01/07/20 12:17:00 EDT Ht (cm), 76.9 kg 01/04/20 8:53:00 EDT Dosing We... Start Date: 01/08/20 Stop Date: 01/18/20 Status: Orderedsotalol 120 mg oral tab 120 mg = 1 tab(s), PO, BID, 0 Refill(s) Start Date: 06/11/19 St
--- OUTSIDE RECORDS SUMMARY | 2021-03-18 17:29 | XMS_ITS | Continuity of Care Document ---
:1960 Author Organization [facility] Address [address] [place] [address]- Care Team Providers Name Role Phone SELF-REFERRAL Unavailable Unavailable Encounter [facility] Fin Number pool [id number] Date(s): 12/31/19 - 12/31/[address] [facility] [address] [place] [address]- Discharge Disposition: Discharged Home/Self Care Attending Physician: [...] Nausea/Vomiting, # 90 tab(s), 2 Refill(s), Pharmacy: [facility]/pharmacy #[id number], 163.5 cm 06/11/19 9:49:00 [...] tient Environmental allergy(Possible)3 Active patient Hepatitis B vaccination(Possible)4 Active
--- OUTSIDE RECORDS SUMMARY | 2021-03-18 17:29 | XMS_ITS | Continuity of Care Document ---
:1960 Author [address] [facility] Address [address] [place] [address]- Care Team Providers Name Role Phone SELF-REFERRAL Unavailable Unavailable Encounter [facility] Fin Number pool [id number] Date(s): 02/05/20 - 02/05/[address] [facility] [address] [place] [address]- Attending Physician: NAIDA LINARES MD Allergies, Adverse Reactions, Alerts Substance Reaction Severity Status tetracycline Eyes swollen Mild Active Hives Adhesive Tape Rash Mild Active Assessment and Plan Future AppointmentsAppointment Date:02/11/2020 09:00:00 AM Scheduled Provider:NAIDA LINARES MD Location:[facility] Appointment Type:SN - SURGICAL PROCEDURE RM Appointment Date:04/14/2020 10:15:00 AM Scheduled Provider: Location:Blood Draw [...] NEEDED FOR PAIN Start Date: 01/15/20 Status: OrderedKeflex 250 mg oral capsule 250 mg = 1 cap(s), PO, QID, X 10 day(s), # 40 cap(s), 0 Refill(s), Pharmacy: [facility]/pharmacy #[id number], 162cm 01/07/20 12:17:00 EDT Ht (cm), 71.7 kg 01/15/20 7:31:00 EDT Dosing Weight Start Date: 02/01/20 Stop Date: 02/11/20 Status: Orderedondansetron 8 mg oral tablet 8 mg = 1 tab(s), PO, Q8HR, PRN Nausea/Vomiting, # 90 tab(s), 2 Refill(s), [id number], 163.5 cm 06/11/19 9:49:00 EST Ht [...]
--- OUTSIDE RECORDS SUMMARY | 2021-03-18 17:29 | XMS_ITS | Continuity of Care Document ---
:1960 Author Organization [facility] Address [address] [place] [address]- Care Team Providers Name Role Phone SELF-REFERRAL Unavailable Unavailable Encounter [facility] Fin Number pool [id number] Date(s): 07/15/20 - 07/15/20 [facility] [address] [place] [address]- Discharge Disposition: Discharged Home/Self Care Attending Physician: ILIANA ORNELAS APRN Allergies, Adverse Reactions, Alerts Substance Reaction Severity Status tetracycline Eyes swollen Mild Active Hives Adhesive Tape Rash Mild Active Assessment and Plan Future AppointmentsAppointment Date:10/16/2020 10:00:00 AM Scheduled Provider: Location:Blood Draw Area Appointment Type:Lab Services Appointment Date:10/16/2020 10:20:00 AM Scheduled Provider: Location:Diagnostic Imaging Appointment Type:CT Abd/Pelvis/Thorax w/ Contrast - Combo Appointment Date:10/16/2020 01:15:00 PM Scheduled Provider:ILIANA ORNELAS APRN Location: Clinic Appointment Type:EP Future Scheduled TestsLaboratoryBasic Metabolic Panel 10/16/20RadiologyCT TAP w/Cont (Thorax, Abd,Pelvis) 10/16/20 Medications ALPRAZolam 0.5 mg oral tablet 0.5 [...] Nausea/Vomiting, # 90 tab(s), 2 Refill(s), Pharmacy: [facility]/pharmacy #[id number], 163.5 cm 06/11/19 9:49:00 EST [...] BID, 0 Refill(s) Start Date: 06/11/19 Status: OrderedUrostomy Supplies Urostomy Supplies, See Instructions, wafer pouch and bag 12/04- 1 ?? inch moldable, skin prep wipes, adhesive removal wipes, Albin Seal ring, overnight urinary drainage bags. Change ostomy every 3-4 daysand PRN., # 1 EA, 99 Refill(s), Supply Start Date: 06/18/20 Status: Orderedvenlafaxine 75 mg oral caps
--- OUTSIDE RECORDS SUMMARY | 2021-03-18 17:29 | XMS_ITS ---
:1960 Author Care Team Providers Name Role Phone DEBI LAST MD Bindery Machine Setter/Set Up Operator [phone] HARRISON ARCHULETA MD Senior Communications Engineer [phone] YOLI BAUTISTA DO Primary Care Provider [phone] Allergies Code Code System Name Reaction Severity Status Onset Adhesive Tape Rash Moderate Active ? Tetracyclines Facial Moderate Active ? Swelling Medications Name Status Start Date Stop Date ? ? cephalexin 500 mg capsule Active ? Not av ailable furosemide 20 mg tablet Active ? Not avai lable Humira(CF) Pen 40 mg/0.4 mL subcutaneous Active ? Not available kit nitrofurantoin monohydrate/macrocrystals Active ? Not available 100 mg capsule sotalol 120 mg tablet Active ? Not availa ble venlafaxine ER 75 mg capsule,extended Active ? Not available release 24 hr warfarin 5 mg tablet Active ? Not availab le Problems Name Status Onset Date Source ? Rheumatoid Arthritis Active 03/27/2014 ? Hypertensive Disorder Active 03/27/2019 ? Atrial Fibrillation Active 03/27/2019 ? 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 Lateral Cystocele Active 03/27/2019 ? Procedures Date Name Performed by ? ? Cardiac Ablation Using Fluoroscopy Hipolito nce Information not available ? Section Information not aleenaai harshad Notes: times three ? Hysterectomy/bladder Repair Information not available ?
--- OUTSIDE RECORDS SUMMARY | 2021-03-18 17:29 | XMS_ITS | Continuity of Care Document ---
:1960 Author Organization [facility] Address [address] [place] [address]- Care Team Providers Name Role Phone SELF-REFERRAL Unavailable Unavailable Encounter [facility] Fin Number pool [id number] Date(s): 01/03/20 - 01/08/20 [facility] [address] [place] [address]- Discharge Disposition: Discharged Home/Self Care Attending Physician: LAUAR GAMEZ MD Admitting Physician: LAURA GAMEZ MD Allergies, Adverse Reactions, Alerts Substance Reaction Severity Status tetracycline Eyes swollen Mild Active Hives Adhesive Tape Rash Mild Active Assessment and Plan Extracted from: Title: History & Physical - Pre-Op Author: VIRGINIA LAL MD Date: 01/03/20 Assessment and Plan Treatment Summary: ASSESSMENT: 58F with [id number] 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 We discussed risk of wound and bowel dehischence. We discussed risk of urine leak. We d iscussed risk of obturator nerve injury. We also discussed the risk of post operative complication including UTI, PE, DVT, pneumonia, wound infection and abscess. We discussed the possibility of vaginal sparing operation.
--- OUTSIDE RECORDS SUMMARY | 2021-03-18 17:29 | XMS_ITS | Continuity of Care Document ---
:1960 Author Organization [facility] Address [address] [place] [address]- Care Team Providers Name Role Phone SELF-REFERRAL Unavailable Unavailable Encounter [facility] Fin Number pool [id number] Date(s): 04/14/20 - 04/14/20 [facility] [address] [place] [address]- Discharge Disposition: Discharged Home/Self Care Attending Physician: KWAKU LERMA APRN Allergies, Adverse Reactions, Alerts Substance Reaction [...] # 90 tab(s), 2 Refill(s), Pharmacy: [facility]/pharmacy #[id number], 163.5 cm 06/11/19 9:49:00 [...] cap(s), 0 Refill(s) Start Date: 06/07/19 Status: OrderedVitami
--- OUTSIDE RECORDS SUMMARY | 2021-03-18 17:29 | XMS_ITS | Continuity of Care Document ---
:1960 Author Organization [facility] Address [address] [place] [address]- Care Team Providers Name Role Phone SELF-REFERRAL Unavailable Unavailable Encounter [facility] Fin Number pool [id number] Date(s): 02/01/20 - 01/31/20 [facility] [address] [place] [address]- Attending Physician: CATE TOTH APRN Allergies, Adverse Reactions, Alerts Substance Reaction [...] Nausea/Vomiting, # 90 tab(s), 2 Refill(s), Pharmacy: [facility]/pharmacy #[id number], 163.5 cm 06/11/19 9:49:00 EST [...] -rest of the the week 7.5mg po da
--- OUTSIDE RECORDS SUMMARY | 2021-03-18 17:30 | XMS_ITS | Continuity of Care Document ---
:1960 Author Organization [facility] Address [address] [place] [address]- Care Team Providers Name Role Phone SELF-REFERRAL Unavailable Unavailable Encounter [facility] Fin Number pool [id number] Date(s): 10/16/20 - 08/13/20 [facility] [address] [place] [address]- Attending Physician: ILIANA ORNELAS APRN Allergies, Adverse Reactions, Alerts Substance Reaction Severity Status tetracycline Eyes swollen Mild Active Hives Adhesive Tape Rash Mild Active Assessment and Plan Future AppointmentsAppointment Date:11/10/2020 11:15:00 AM Scheduled Provider: Location:Blood Draw Area Appointment Type:Lab Services Appointment Date:11/10/2020 11:40:00 AM Scheduled Provider: Location:Diagnostic Imaging Appointment Type:CT Abd/Pelvis/Thorax w/ Contrast - Combo Appointment Date:2020 07:15:00 AM Scheduled Provider:ILIANA ORNELAS APRN Location:Phone/Remote Appointment Type:zoomEP Future Scheduled TestsLaboratoryBasic Metabolic Panel 11/10/20RadiologyCT TAP w/Cont (Thorax, Abd,Pelvis) 11/10/20 Medications ALPRAZolam 0.5 mg oral tablet 0.5 [...] Nausea/Vomiting, # 90 tab(s), 2 Refill(s), Pharmacy: [facility]/pharmacy #[id number], 163.5 cm 06/11/19 9:49:00 EST Ht [...] Date: 06/18/20 Status: Orderedvenlafaxine 75 mg oral capsule, extended release 75 mg = 1 cap(s), PO,
--- OUTSIDE RECORDS SUMMARY | 2021-03-18 17:30 | XMS_ITS ---
:1960 Author Organization [facility] Address [facility] [address] Phone Care Team Providers Name Role Phone AILYNCHAPITO Primary Care Provider [phone] KIRSTY NOVAK, JOB Unavailable [phone] CECILIA LAST Unavailable [phone] Problems Includes: Active, inactive, and resolved Problems All Visits Onset Date - Resolved Date - Provider Condition St atus Time Time Bladder Cancer 10/13/2020 - Roselia WATTS Active 11:35AM Aortic Regurgitation 03/31/2018 - KIMBERLEE LOFTON Act aleida 12:00AM Note: moderate AI Paroxysmal Atrial Fibrillation 03/31/2018 - 12:00AM DI LIP DENNY LOFTON MD Active Note: s/p ablation in 2014 b y in [facility] Chronic Obstructive Pulmonary 03/31/2018 - 12:00AM CHERY LOFTON MD Active Disease Gerd 03/31/2018 - 12:00AM KIMBERLEE LOFTON MD Active Overanxious Disorder 03/31/2018 - 12:00AM KIMBERLEE OCONNOR MD Active Essential Hypertension 03/31/2018 - 12:00AM KIMBERLEE LOFTON MD Active Mitral Regurgitation 03/31/2018 - 12:00AM KIMBERLEE OCONNOR MD Active Note: moderate MR Rheumatoid Arthritis 03/31/2018 - 12:00AM KIMBERLEE OCONNOR MD Active Organic Sleep Apnea 03/31/2018 - 12:00AM KIMBERLEE KINGSLEY MD Active Plan of Treatment No Plan of Treatment Recorded Assessments Includes: Assessments for all patient encounters Findings Encounter Date
--- OUTSIDE RECORDS SUMMARY | 2021-03-18 17:30 | XMS_ITS | Clinical Summary ---
:1960 Author Organization [facility] Address [facility] [address] Phone Care Team Providers Name Role Phone MICHELE Primary Care Provider [phone] KIRSTY NOVAK, JOB Unavailable [phone] CECILIA LAST Unavailable [phone] Reason for Visit and Chief Complaint Follow Up Problems Includes: Problems addressed during this encounter and other active Problems Current Visit Onset Date - Resolved Date - Provider Condition S tatus Time Time Bladder Cancer 10/13/2020 - Roselia WATTS Active 11:35AM Aortic Regurgitation 03/31/2018 - KIMBERLEE LOFTON Act aleida 12:00AM Note: moderate AI Paroxysmal Atrial Fibrillation 03/31/2018 - 12:00AM DI LIP DENNY LOFTON MD Active Note: s/p ablation in 2014 b y in [facility] Chronic Obstructive Pulmonary 03/31/2018 - 12:00AM DIL MEGAN LOFTON MD Active Disease Gerd 03/31/2018 - [...] KIMBERLEE KINGSLEY MD Active Plan of Treatment She is doing well and remains in normal s
--- OUTSIDE RECORDS SUMMARY | 2021-03-18 17:30 | XMS_ITS | Continuity of Care Document ---
:1960 Author Organization [facility] Address [address] [place] [address]- Care Team Providers Name Role Phone SELF-REFERRAL Unavailable Unavailable Encounter [facility] Fin Number pool [id number] Date(s): 01/15/20 - 01/15/20 [facility] [address] [place] [address]- Discharge Disposition: Discharged Home/Self Care Attending Physician: [...] Nausea/Vomiting, # 90 tab(s), 2 Refill(s), Pharmacy: [facility]/pharmacy #[id number], 163.5 cm 06/11/19 9:49:00 EST [...] # 20 tab(s), 0 Refill(s), Pharmacy: [id number], - 535 - will be discharged today, thank you!, 162 cm 01/07/20 12:17:00 EDT Ht (cm), 76.9 kg 01/04/20 8:53:00 EDT Dosing We... Start Date: 01/08/20 Stop Date: 01/18/20 Status: Orderedsotalol 120 mg oral tab 120 mg = 1 tab(s), PO, BID, 0 Refill(s) Start Date: 06/11/19
--- OUTSIDE RECORDS SUMMARY | 2021-03-18 17:30 | XMS_ITS | Clinical Summary ---
:1960 Author Organization [facility] Address [address] [address] Phone Care Team Providers Name Role Phone MICHELE Primary Care Provider [phone] KIRSTY NOVAK, JOB Unavailable [phone] CECILIA LAST Unavailable [phone] Reason for Visit and Chief Complaint Phone Consult Problems Includes: Problems addressed during this encounter [...] s/p ablation in 2014 b y in [facility] Chronic Obstructive Pulmonary 03/31/2018 - 12:00AM [...] KIMBERLEE KINGSLEY MD Active Plan of Treatment We will schedule a follow-up in office w
--- OUTSIDE RECORDS SUMMARY | 2021-03-18 17:30 | XMS_ITS | Continuity of Care Document ---
:1960 Author Organization [facility] Address [address] [place] [address]- Care Team Providers Name Role Phone SELF-REFERRAL Unavailable Unavailable Encounter [facility] Fin Number pool [id number] Date(s): 12/31/19 - 12/31/19 [facility] [address] [place] [address]- Discharge Disposition: Discharged Home/Self Care Attending Physician: [...] # 90 tab(s), 2 Refill(s), Pharmacy: [facility]/pharmacy #[id number], 163.5 cm 06/11/19 9:49:00 EST Ht [...]
--- OUTSIDE RECORDS SUMMARY | 2021-03-18 17:30 | XMS_ITS | Continuity of Care Document ---
:1960 Author Organization [facility] Address [address] [place] [address]- Care Team Providers Name Role Phone SELF-REFERRAL Unavailable Unavailable Encounter [facility] Fin Number pool [id number] Date(s): 11/10/20 - 11/10/20 [facility] [address], [place] [address] Discharge Disposition: Discharged Home/Self Care Attending Physician: ILIANA ORNELAS APRN Allergies, Adverse Reactions, Alerts Substance Reaction Severity Status tetracycline Eyes swollen Mild Active Hives Adhesive Tape Rash Mild Active Assessment and Plan Future AppointmentsAppointment Date:2020 07:15:00 AM Scheduled Provider:ILIANA ORNELAS APRN Location:Phone/Remote Appointment Type:zoomEP Medications ALPRAZolam 0.5 mg oral tablet 0.5 [...] Nausea/Vomiting, # 90 tab(s), 2 Refill(s), Pharmacy: [facility]/pharmacy #[id number], 163.5 cm 06/11/19 9:49:00 [...]
--- OUTSIDE RECORDS SUMMARY | 2021-03-18 17:30 | XMS_ITS | Continuity of Care Document ---
:1960 Author Organization [facility] Address [address] [place] [address]- Care Team Providers Name Role Phone SELF-REFERRAL Unavailable Unavailable Encounter [facility] Fin Number pool [id number] Date(s): 02/11/20 - 02/11/20 [facility] [address] [place] [address]- Discharge Disposition: Discharged Home/Self Care Attending Physician: NAIDA LINARES MD Allergies, Adverse Reactions, Alerts Substance Reaction Severity Status tetracycline Eyes swollen Mild Active Hives Adhesive Tape Rash Mild Active Assessment and Plan Future AppointmentsAppointment Date:02/19/2020 02:00:00 PM Scheduled Provider: Location:[facility] 6th Floor Appointment Type:PO Appointment Date:04/14/2020 10:15:00 AM Scheduled Provider: Location:Blood Draw Area Appointment Type:Lab Services Appointment Date:04/14/2020 10:50:00 AM Scheduled Provider: Location:[facility] Appointment Type:CT Abd/Pelvis/Thorax w/ Contrast - Combo [...] Nausea/Vomiting, # 90 tab(s), 2 Refill(s), Pharmacy: [facility]/pharmacy #[id number], 163.5 cm 06/11/19 9:49:00 EST Ht (cm), 65.6 kg 08/23/19 8:39:00 EDT Dosing Weight Start Date: 08/30/19 Stop Date: 11/28/19 Status: OrderedPercocet 5/325 See Instructions, PRN: Pain Moderate, 1-2 tab(s) PO Q4-6HR, not to exceed 4000 mg acetaminophen per day, # 30 tab(s), 0 Refill(s), Note to Pharmacy: _x___ACUTE PAIN EXCEPTION; ____NONACUTE PAIN Start Date: 02/11/20 Stop Date: 02/18/20 Status: Orderedpotassium chloride 99 mg oral tablet 99 mg = 1 tab(s
--- OUTSIDE RECORDS SUMMARY | 2021-03-18 17:30 | XMS_ITS | Continuity of Care Document ---
:1960 Author Organization [facility] Address [address] [place] [address]- Care Team Providers Name Role Phone SELF-REFERRAL Unavailable Unavailable Encounter [facility] Fin Number pool [id number] Date(s): 02/19/20 - 02/18/20 [facility] [address] [place] [address]- Attending Physician: NAIDA LINARES MD Allergies, Adverse Reactions, Alerts Substance Reaction Severity Status tetracycline Eyes swollen Mild Active Hives Adhesive Tape Rash Mild Active Assessment and Plan Future AppointmentsAppointment Date:02/28/2020 01:15:00 PM Scheduled Provider: Location:Phone/Remote Appointment Type:zoomPO Appointment Date:04/14/2020 10:15:00 AM Scheduled Provider: Location:Blood [...] Nausea/Vomiting, # 90 tab(s), 2 Refill(s), Pharmacy: [facility]/pharmacy #[id number], 163.5 cm 06/11/19 [...] 30 cap(s), 0 Refill(s) Start Date: 06/07/19 Status
--- OUTSIDE RECORDS SUMMARY | 2021-03-18 17:30 | XMS_ITS ---
Care Plan - [facility] Created on:March 18, 2021 Patient:JORGE TREVINO Sex:Female :1960 Author Organization [facility] Address [address] [place] [address] Phone Care Team Providers Name Role Phone MICHELE Primary Care Provider [phone] KIRSTY NOVAK, JOB Unavailable [phone] CECILIA LAST Unavailable [phone]
--- OUTSIDE RECORDS SUMMARY | 2021-03-18 17:31 | XMS_ITS | Clinical Summary ---
:1960 Author Organization [facility] Address [address] [address] Phone Care Team Providers Name Role Phone MICHELE Primary Care Provider [phone] KIRSTY NOVAK, JOB Unavailable [phone] CECILIA LAST Unavailable [phone] Reason for Visit and Chief Complaint EP New Patient Eval Problems Includes: Problems addressed during this encounter and other active Problems Current Visit Onset Date - Resolved Date - Provider Condition S tatus Time Time Aortic Regurgitation 03/31/2018 - KIMBERLEE LOFTON Act aleida 12:00AM Note: moderate AI Paroxysmal Atrial Fibrillation 03/31/2018 - 12:00AM DI LIP DENNY LOFTON MD Active Note: s/p ablation in 2014 b y in [facility] Chronic Obstructive Pulmonary 03/31/2018 - 12:00AM DIL MEGAN LOFTON MD Active Disease Gerd 03/31/2018 - 12:00AM KIMBERLEE LOFTON MD Active Overanxious Disorder 03/31/2018 - 12:00AM KIMBERLEEMEGAN OCONNOR MD Active Essential Hypertension 03/31/2018 - 12:00AM KIMBERLEE LOFTON MD Active Mitral Regurgitation 03/31/2018 - 12:00AM KIMBERLEEMEGAN OCONNOR MD Active Note: moderate MR Rheumatoid Arthritis 03/31/2018 - 12:00AM KIMBERLEE OCONNOR MD Active Organic Sleep Apnea 03/31/2018 - 12:00AM KIMBERLEE DENNY KINGSLEY MD Active Past Visits Onset Date - Time Resolved Date - Provider Conditi on Status Time Bladder Cancer 10/13/2020 - Roselia WATTS Active
--- OUTSIDE RECORDS SUMMARY | 2021-03-18 17:31 | XMS_ITS | Clinical Summary ---
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
--- OUTSIDE RECORDS SUMMARY | 2021-03-18 17:32 | XMS_ITS ---
:1960 Author Care Team Providers Name Role Phone YOLI BAUTISTA Primary Care Provider [phone] DEBI LAST MD Mice Raiser [phone] RAJI DENNY MD Director Distribution [phone] Allergies Code Code System Name Reaction Severity Status Onset 45557 RxNorm Tetracycline ? ? Active 019 Notes: Some allergies listed in Document: #[id number] could not be added to this patient's chart. Please review this document and add these allergies to the patient's chart manually as needed. Medications Name Status Start Date Stop Date ? ? alprazolam 0.5 mg tablet Active ? Not didi ilable TAKE 1 TABLET BY MOUTH THREE TIMES A DAY NEEDED amoxicillin 500 mg capsule Completed ? 09/08 TK 1 C PO TID amoxicillin 875 mg-potassium clavulanate 125 mg tablet Completed ? 08/09/2019 TAKE 1 TABLET BY MOUTH EVERY 12 HOURS FOR 7 DAYS Anoro Ellipta 62.5 mcg-25 Active ? Not av ailable mcg/actuation powder for inhalation Atrovent HFA 17 mcg/actuation Active ? No t available aerosol inhaler benzonatate 100 mg capsule Completed ? 05/14 TAKE 1 CAPSULE BY MOUTH THREE TIMES A DAY FOR 10 DAYS benzonatate 200 mg capsule Completed ? 05/14 TAKE 1 CAPSULE BY MOUTH THREE TIMES A DAY FOR 10 DAYS bupropion HCl XL 150 mg 24 hr tablet, extended release Completed ? 02/09/2018 TK 1 T PO QD cephalexin 250 mg capsule Completed ? 2019 TAKE 1 CAPSULE BY MOUTH 4 TIMES A DAY FOR 10 DAYS
[2021-03-18] MEDS: GLYCOPYRROLATE INJ (*SP) 0.2 MG/ML VIAL 0.1 MG IV PUSH ×2 (18:04→22:05)
[2021-03-18] MEDS: LORazepam INJ (*CRX) 2 MG/ML VIAL 1 MG IV PUSH (18:05)
[2021-03-18] MEDS: MORPHINE SULFATE INJ (*CRX) 50 MG in SODIUM CHLORIDE 0.9% IV 95 ML IV CONT (18:14)
--- NOTE | 2021-03-18 18:46 | PM.DS ---
DS: Admitting Diagnosis Discharge Date 03/18/2021 Admitting Diagnosis Cardiac arrest. DS: Discharge Diagnosis Discharge Diagnosis (1) Cardiac arrest: Code(s): I46.9 - Cardiac arrest, cause unspecified Status: Acute DS: Summary Hospital Course Reason for hospitalization: Cardiac arrest. Hospital Course: This is a 60-year-old female with past medical history significant for bladder cancer status post ileal conduit placement, atrial fibrillation, sinus node ablation, cardiac arrest. Patient currently resides in [place] she has a visiting and tonight was at wedding her son came for her when she got in the back seat in the car she complained that she was not able to breathe as the son is trying to green chain puller and called 911 he noticed that she was unresponsive and slumped back immediately got her out of the car and bystanders initiated CPR. EMS arrived and proceeded to continue CPR patient received 3 rounds of epinephrine and had return of spontaneous circulation and route to the hospital. In emergency room patient was placed on ventilator support and preliminary workup was pretty much unrevealing a CTA did not show any acute pulmonary embolism EKG showed sinus rhythm a chest x-ray did not show any abnormalities and CBC with white count of 16,000 chemistry panel and troponin were significant for elevation of AST and ALT, elevated troponin and a creatinine of 1.5. Patient was started on ventilator support. Patient was evaluated by cardiology; she had an asystolic and PDA arrest, no evidence of any torsade or ventricular arrhythmias at the time of the arrest or since then. There was no evidence of acute ME. She was previously on sotalol, but No evidence of ventricular arrhythmias. She carries a history of COPD but does not appear to have significant CO2 retention. There was no no evidence of PE. She has been hemodynamically stable since admission. She received target temperature management. After she experienced myoclonic jerks/seizure activity, she was started on keppra. Anoxic brain damage - status post target temperature management -CT scan of the brain did not show any acute intracranial abnormality, chronic left parietal lobe infarction and chronic age-related findings -appreciate Neurology evaluation and recommendations - continue to hold propofol as much as possible -EEG 03/03 - Abnormal record due to the presence of diffuse low-voltage beta activity without any change throughout the tracing and also with no evidence of the seizure-like activity - Repeat head CT 03/05 showed sinusitis and no other change -there has been no significant improvement in her mental status despite patient being off all sedation - Repeat EEG on 03/11/2021 showed abnormal record due to the absence of cerebral activity, multiple muscle artifacts are noted throughout the tracing. -Case was discussed with neurologist, who stated that the EEG was pretty ominous, no cerebral activity was present. Prognosis is very poor Acute respiratory failure due to cardiac arrest. After being intubated in the field on 03/01/2021, she remained on CMV mode of ventilation, peep of 5. Bronchodilators were added given history of COPD. She was initially sedated with propofol. Elevated LFTs: Elevated LFTs likely related to cardiac arrest; she was managed conservatively with hydration. COPD (chronic obstructive pulmonary disease): Patient with history of COPD, -continue bronchodilators, mechanical ventilation Paroxysmal atrial fibrillation: Patient currently in sinus rhythm, rate controlled, has been on Coumadin at home with an INR 2.5 -she was managed with heparin infusion -cardiology following the patient Myoclonic jerking: Patient started to have some myoclonic jerks. CT scan of the brain did not show any acute intracranial abnormality, chronic left parietal lobe infarction and chronic age-related findings. Patient has been started on Keppra, will continue and monitor DVT prophylaxis: Patient was a
[2021-03-18 19:32] VITALS: BP 109/65; PULSE 100; RESP 24; TEMP 36.1; O2SAT 75
[2021-03-19] MEDS: LORazepam INJ (*CRX) 2 MG/ML VIAL 1 MG IV PUSH ×2 (02:52→11:28)
[2021-03-19] MEDS: MORPHINE SULFATE INJ (*CRX) 50 MG in SODIUM CHLORIDE 0.9% IV 95 ML IV CONT ×2 (12:15→19:20)
[2021-03-19] MEDS: GLYCOPYRROLATE INJ (*SP) 0.2 MG/ML VIAL 0.1 MG IV PUSH (12:19)
[2021-03-19 12:26] VITALS: BP 98/50
[2021-03-19] MEDS: MORPHINE SULFATE (*CRX) 2 MG/ML INJ IV PUSH (13:19)
[2021-03-19 14:10] VITALS: O2SAT 90
[2021-03-19 14:50] VITALS: BP 105/59; PULSE 102; RESP 24; TEMP 38.1; O2SAT 83
[2021-03-19 19:35] VITALS: BP 108/60; PULSE 101; RESP 18; TEMP 38.2; O2SAT 80
[2021-03-20] MEDS: GLYCOPYRROLATE INJ (*SP) 0.2 MG/ML VIAL 0.1 MG IV PUSH ×3 (07:36→16:34)
[2021-03-20 10:13] VITALS: BP 108/64; PULSE 102; RESP 16; TEMP 37.3; O2SAT 73
[2021-03-20 14:51] VITALS: BP 126/63; PULSE 100; RESP 19; TEMP 38.6; O2SAT 81
--- NOTE | 2021-03-20 16:39 | PM.IMHP ---
H&P: HPI History of Present Illness Date/Time: 03/20/21 16:39 Chief Complaint: uncontrolled dyspnea Narrative: his is a 60-year-old female with past medical history significant for bladder cancer status post ileal conduit placement, atrial fibrillation, sinus node ablation, cardiac arrest. Patient currently resides in [place] she has a visiting and tonight was at wedding her son came for her when she got in the back seat in the car she complained that she was not able to breathe as the son is trying to head well puller and called 911 he noticed that she was unresponsive and slumped back immediately got her out of the car and bystanders initiated CPR. EMS arrived and proceeded to continue CPR patient received 3 rounds of epinephrine and had return of spontaneous circulation and route to the hospital. In emergency room patient was placed on ventilator support and preliminary workup was pretty much unrevealing a CTA did not show any acute pulmonary embolism EKG showed sinus rhythm a chest x-ray did not show any abnormalities and CBC with white count of 16,000 chemistry panel and troponin were significant for elevation of AST and ALT, elevated troponin and a creatinine of 1.5. Patient was started on ventilator support. Patient was evaluated by cardiology; she had an asystolic and PDA arrest, no evidence of any torsade or ventricular arrhythmias at the time of the arrest or since then. There was no evidence of acute LA. She was previously on sotalol, but No evidence of ventricular arrhythmias. She carries a history of COPD but does not appear to have significant CO2 retention. There was no no evidence of PE. She has been hemodynamically stable since admission. She received target temperature management. After she experienced myoclonic jerks/seizure activity, she was started on keppra. Anoxic brain damage - status post target temperature management -CT scan of the brain did not show any acute intracranial abnormality, chronic left parietal lobe infarction and chronic age-related findings -appreciate Neurology evaluation and recommendations - continue to hold propofol as much as possible -EEG 03/03 - Abnormal record due to the presence of diffuse low-voltage beta activity without any change throughout the tracing and also with no evidence of the seizure-like activity - Repeat head CT 03/05 showed sinusitis and no other change -there has been no significant improvement in her mental status despite patient being off all sedation - Repeat EEG on 03/11/2021 showed abnormal record due to the absence of cerebral activity, multiple muscle artifacts are noted throughout the tracing. FAMILY OPTED FOR INPATIENT HOSPICE CARE 03/18 AFTER WITHDRAWING VENTILATOR SUPPORT 03/17. Review of Systems Review of Systems: ROS unobtainable: Yes unobtainable due to medical condition PMFSH Past Medical History Medical History Atrial fibrillation Bladder cancer Chronic anticoagulation Paroxysmal atrial fibrillation Surgical History Surgical History H/O cardiac radiofrequency ablation H/O total cystectomy History of ileal conduit Family History Family History Mother COPD (chronic obstructive pulmonary disease) Father Leukemia Sibling Atrial fibrillation Social History Social History Social History: History of tobacco abuse Smoking packs per day: 1 Smoking cigarettes per day: 20.0 Years smoked: 30 Smoking pack-years: 30.00 Smoking status: Former smoker Tobacco type: cigarettes Smoking end date: 11/27/20 Alcohol intake: current Drinks per week: 3 Substance use: current Substance use type: marijuana Last use: 02/28/21 Spiritual care concerns: No Meds Home Medications and Allergies Home Medications Medication Instructions Recorded
[2021-03-20] MEDS: MORPHINE SULFATE INJ (*CRX) 50 MG in SODIUM CHLORIDE 0.9% IV 95 ML IV CONT (17:06)
[2021-03-20 20:00] VITALS: PULSE 56; RESP 18; O2SAT 68
[2021-03-20 20:30] VITALS: BP 98/68; PULSE 56; RESP 18; TEMP 37; O2SAT 68
--- NOTE | 2021-03-20 23:54 | PC.NURSE ---
Found pt at 2230 with no respirations and no pulse, pt is current hospice pt. [facility] notified and called and notified.
--- NOTE | 2021-03-21 00:07 | PC.NURSE ---
MTS called with morgue time of 2354.
--- NOTE | 2021-03-25 16:20 | P.DN_ITS ---
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 EEG was c/w severe anoxic brain injury. She survived overnight following removal of ventilator and was then admitted to inpatient hospice. Medications were titrated to comfort. She peacefully. Additional Data Confirmation of as documented by pronouncing clinician: Pupillary Reflex, Palpable Pulses, Response to Stimuli, Heart Tones and Breath Sounds Name of Provider Notified: Dr. Mihai Arvizu notified by hospice Time Provider Notified: 22:40 Provider Requests Autopsy: No Family Requests Autopsy: No Fruit Buying Grader Notified: Yes Date [facility] Notified of : 03/20/21 Time [facility] Notified of : 23:07
== END 2021-03-20 22:30 | disposition expired | DRG 951 ==
PROVIDERS: Admitting Provider Internal Medicine; Visit Provider Internal Medicine
DX: Z51.5 Encounter for palliative care (principal); J96.01 Acute respiratory failure with hypoxia; G93.1 Anoxic brain damage, not elsewhere classified; I46.9 Cardiac arrest, cause unspecified; N18.9 Chronic kidney disease, unspecified; J44.9 Chronic obstructive pulmonary disease, unspecified; I48.0 Paroxysmal atrial fibrillation; Z87.891 Personal history of nicotine dependence; Z85.51 Personal history of malignant neoplasm of bladder; Z79.01 Long term (current) use of anticoagulants; J32.9 Chronic sinusitis, unspecified
CPT/HCPCS: J2060; J2270